=== PATIENT | female | born 1935 | race Caucasian/White ===

== ENCOUNTER → 2017-02-25 | Outpatient (CLI) | payer MEDICARE, OTHER ==
--- NOTE | 2017-02-27 11:10 | MM ---
Reason for exam: screening (asymptomatic). Last mammogram was performed 1 year ago. History: Patient is postmenopausal. Family history of breast cancer in sister at age 66, breast cancer in 2 paternal aunts, breast cancer in maternal cousin, and breast cancer in mother at age 85. Physical Findings: A clinical breast exam by your physician is recommended on an annual basis and results should be correlated with mammographic findings. MG 3D Screening Mammo W/Cad Bilateral CC and MLO view(s) were taken. Prior study comparison: February 20, 2016, bilateral MG 3d screening mammo w/cad. The breast tissue is heterogeneously dense. This may lower the sensitivity of mammography. No significant changes when compared with prior studies. ASSESSMENT: Benign, BI-RAD 2 RECOMMENDATION: Routine screening mammogram of both breasts in 1 year.
== END | disposition home or self-care (01) ==
LOC: RADMAMWWP 09:23
PROVIDERS: ATTEND Family Medicine
DX: Z12.31 Encounter for screening mammogram for malignant neoplasm of breast (principal)
CPT/HCPCS: 77063; G0202

== ENCOUNTER → 2018-02-26 | Outpatient (CLI) | payer MEDICARE, OTHER ==
--- NOTE | 2018-03-02 10:35 | MM ---
Reason for exam: screening (asymptomatic). Last mammogram was performed 1 year ago. History: Patient is postmenopausal. Family history of breast cancer in sister at age 66, breast cancer in 2 paternal aunts, breast cancer in maternal cousin, and breast cancer in mother at age 85. Physical Findings: A clinical breast exam by your physician is recommended on an annual basis and results should be correlated with mammographic findings. MG 3D Screening Mammo W/Cad Bilateral CC and MLO view(s) were taken. Prior study comparison: February 25, 2017, bilateral MG 3d screening mammo w/cad. February 20, 2016, bilateral MG 3d screening mammo w/cad. There are scattered fibroglandular densities. Benign appearing bilateral calcifications. No suspicious abnormality. No significant changes when compared with prior studies. ASSESSMENT: Benign, BI-RAD 2 RECOMMENDATION: Routine screening mammogram of both breasts in 1 year.
== END | disposition home or self-care (01) ==
LOC: RADMAMWWP 10:06
PROVIDERS: ATTEND Family Medicine
DX: Z12.31 Encounter for screening mammogram for malignant neoplasm of breast (principal)
CPT/HCPCS: 77063; 77067

== ENCOUNTER 2018-03-14 17:34 | Emergency (ER) | payer MEDICARE, OTHER ==
[2018-03-14 17:47] VITALS: BP 138/70; PULSE 80; RESP 18; TEMP 98.1
[2018-03-14] MEDS ORDERED: LIDOCAINE 1% INJ 10MG/ML (20 ML MDV) SQ STA (18:05)
--- NOTE | 2018-03-14 18:07 | ED ---
General Adult HPI - General Chief complaint: Fall Stated complaint: FALL, FACIAL AND HAND ABRASIONS Time Seen by Provider: 03/14/18 17:49 Source: patient, RN notes reviewed Mode of arrival: ambulatory Limitations: no limitations - History of Present Illness Initial comments: Patient 82-year-old female presenting to the emergency room today with a chief complaint of a fall that occurred approximate 6 hours ago. Patient was met that she was walking in her driveway when she got tripped up fell forward landing on her right knee, and her hands bilaterally. She also admits that she hit the left side of her head and cheek area. Does not that causes laceration. She states tetanus is up-to-date. She states there is a loss conscious. Denies any headache. Patient does note some pain locally around the left cheek and above the left eye where there is a laceration. Patient does admit to some abrasions to her right knee and over the left pinky area. Patient denies any other complaints or symptoms. Patient denies any recent fever, chills, shortness of breath, chest pain, back pain, abdominal pain, nausea or vomiting, headaches or visual changes, or any other complaints. - Related Data Allergies Allergy/AdvReac Type Severity Reaction Status Date / Time No Known Allergies Allergy Verified 03/14/18 17:42 Review of Systems ROS Statement: Those systems with pertinent positive or pertinent negative responses have been documented in the HPI. ROS Other: All systems not noted in ROS Statement are negative. Past Medical History Past Medical History: Hypertension, Thyroid Disorder History of Any Multi-Drug Resistant Organisms: None Reported, MRSA Date of last positivie culture/infection: 2013 Past Surgical History: Hysterectomy Additional Past Surgical History / Comment(s): bowel resection Past Psychological History: No Psychological Hx Reported Smoking Status: Never smoker Past Alcohol Use History: None Reported Past Drug Use History: None Reported General Exam - General Exam Comments Initial Comments: General: The patient is awake and alert, in no distress, and does not appear acutely ill. Eye: Pupils are equal, round and reactive to light, extra-ocular movements are intact. No nystagmus. There is normal conjunctiva bilaterally. No signs of icterus. Ears, nose, mouth and throat: There are moist mucous membranes and no oral lesions. Tender over the superior and inferior orbital bones on the left. Neck: The neck is supple, there is no tenderness or JVD. Cardiovascular: There is a regular rate and rhythm. No murmur, rub or gallop is appreciated. Respiratory: Lungs are clear to auscultation, respirations are non-labored, breath sounds are equal. No wheezes, stridor, rales, or rhonchi. Musculoskeletal: Normal ROM, no tenderness. No cervical spine, thoracic or lumbar spine tenderness. Strength 5/5. Sensation intact. Pulses equal bilaterally 2+. Neurological: A&O x 3. CN II-XII intact, There are no obvious motor or sensory deficits. Coordination appears grossly intact. Speech is normal. Skin: 1.5 cm laceration above the left eyebrow with no active bleeding. Patient does have superficial abrasion to the left pinky area and over the right knee. Psychiatric: Cooperative, appropriate mood & affect, normal judgment. Limitations: no limitations Course Vital Signs 03/14/18 17:42 Temperature 98.1 F Pulse Rate 80 Respiratory 18 Rate Blood Pressure 138/70 O2 Sat by Pulse 96 Oximetry Procedures - Procedures Initial comment: 1.5 cm linear laceration to the left eyebrow.The skin was anesthetized with 1% lidocaine. The laceration was then cleansed with and irrigated with normal saline. The wound was inspected, and there was no evidence of injury to deep structures. No foreign body was noted in the wound. A total of 5 skin sutures were placed utilizing 5-0 nylon. Medical Decision Making - Medical Decision Making Patient's CT of the head and facial bones are negative for any acute abnormality. Results were discussed with the patient. Patient's laceration was closed in emergency room. Abrasions were cleaned by nursing staff. Patient will be discharged home advised to return in 5 days to have sutures removed. Advised to return for new concerns. Disposition Clinical Impression: Fall, Facial laceration, Abrasion, Facial contusion Disposition: HOME SELF-CARE Condition: Good Instructions: Laceration (ED) Additional Instructions: Please return to the emergency room in 5 days to have sutures removed. Please watch for any signs of infection which may include increased pain, swelling, redness, fever or chills. Please return to emergency room for any signs of infection do occur. Please use clean soap and water over the area to prevent scabbing over your stitches. Please leave wound covered for the first 24- hours and then leave wound open to air. Please return to the emergency room for any other concerns. Is patient prescribed a controlled substance at d/c from ED?: No Referrals: Janna Reyes DO [Primary Care Provider] - 1-2 days Time of Disposition: 18:32
--- NOTE | 2018-03-14 18:25 | CT ---
EXAMINATION TYPE: CT brain wo con DATE OF EXAM: 03/14/2018 COMPARISON: 04/02/2013 HISTORY: Fell, hitting left cheek and left brow CT DLP: 981.30 mGycm Automated exposure control for dose reduction was used. FINDINGS: There is mild cerebral cortical atrophy. There is no mass effect nor midline shift. There is no sign of intracranial hemorrhage. The calvarium is intact. There is some hypodensity in the periventricular white matter. IMPRESSION: CEREBRAL ATROPHY. NO ACUTE INTRACRANIAL ABNORMALITY. NO SIGNIFICANT CHANGE COMPARED TO OLD EXAM.
--- NOTE | 2018-03-14 18:27 | CT ---
EXAMINATION TYPE: CT facial bones wo con DATE OF EXAM: 03/14/2018 COMPARISON: NONE HISTORY: Fell, hitting left cheek and left brow CT DLP: 440.70 mGycm Automated exposure control for dose reduction was used. TECHNIQUE: CT scan of the sinuses is performed without contrast, axial images are obtained, coronal r eformatted images are also reviewed. FINDINGS: The orbital margins are intact. There is no evidence of retro-orbital mass. There is no shannon dence of a blowout fracture. There is normal aeration of the paranasal sinuses. Zygomatic arches appe ar normal. Maxilla is intact. IMPRESSION: Negative CT scan of the facial bones. No fracture seen.
== END 2018-03-14 18:40 | disposition home or self-care (01) ==
LOC: EC 17:34
DX: S01.112A Laceration without foreign body of left eyelid and periocular area, initial encounter (principal); S60.417A Abrasion of left little finger, initial encounter; S80.211A Abrasion, right knee, initial encounter; Z86.14 Personal history of Methicillin resistant Staphylococcus aureus infection; W01.10XA Fall on same level from slipping, tripping and stumbling with subsequent striking against unspecified object, initial encounter; Y93.01 Activity, walking, marching and hiking
CPT/HCPCS: 99283; 12011; 70486; 70450; J2001

== ENCOUNTER → 2018-07-02 | Outpatient (CLI) | payer MEDICARE, OTHER ==
--- NOTE | 2018-07-02 16:27 | BD ---
EXAMINATION TYPE: Axial Bone Density DATE OF EXAM: 07/02/2018 COMPARISON: NONE CLINICAL HISTORY: Height: 5FT 2 1/2 IN Weight: 139 FRAX RISK QUESTIONS: RISK FACTORS HISTORY OF: Active: YES Postmenopausal woman: TOTAL HYST AGE 53 Lost more than 2 inches in height since high school: YES MEDICATIONS: Thyroid Medications: YES Which medication: L THYROXINE How Long: SINCE 1987 Additional Medications: L THYROXINE, ADVAIR, TOPROL,DIOVAN HCT, ASPIRIN, B12, D3, CALCIUM, SLO-MAG, Z YRTEC, REFRESH EYE DROPS, Additional History: EXAM MEASUREMENTS: Bone mineral densitometry was performed using the [employer] System. Bone mineral density as measured about the Lumbar spine is: ----- L1-L4(G/cm2): 1.639 T Score Values are as follows: ----- L2: 3.8 ----- L3: 4.1 ----- L4: 3.1 ----- L1-L4: 3.8 Bone mineral density has: INCREASED 3.2 % since study of: 2014 Bone mineral density about the R hip (g/cm2): 1.033 Bone mineral density about the L hip (g/cm2): 0.945 T Score values are as follows: -----R Neck: 0.0 -----L Neck: -0.7 -----R Total: 0.0 -----L Total: 0.2 Bone mineral density has: DECREASED -1.0 % since study of: 2014 IMPRESSION: Normal (Values between +1 and -1 indicate normal bone mass). Consider repeating this study in 5 year s or sooner if there is some new clinical indication. NOTE: T-SCORE=SD OF THE YOUNG ADULT MEAN.
== END ==
LOC: RADBDWWP 10:16
PROVIDERS: ATTEND Family Medicine
DX: Z13.820 Encounter for screening for osteoporosis (principal)
CPT/HCPCS: 77080

== ENCOUNTER → 2018-10-12 | Outpatient (CLI) | payer MEDICARE, OTHER ==
--- NOTE | 2018-10-13 09:17 | US ---
EXAMINATION TYPE: US kidneys/renal and bladder DATE OF EXAM: 10/12/2018 COMPARISON: US from 2012. CLINICAL HISTORY: R31.9 Hematuria. frequent UTI's EXAM MEASUREMENTS: Right Kidney: 11.1 x 4.2 x 4.4 cm Left Kidney: 10.2 x 6.0 x 5.2 cm Post Void Residual Volume: 8.0 mL Right Kidney: cyst measures 1.3 x 1.5 x 1.1 cm, small amount of fluid renal pelvis seen post void. Left Kidney: No hydronephrosis or masses seen Bladder: wnl Bilateral Jets seen: Yes Normal Post Void Residual: Yes There is no evidence for hydronephrosis at this point in time. No nephrolithiasis is seen. No mayito s are identified. The urinary bladder is anechoic. Bilateral ureteral jets are seen. There is simple appearing 1.3 cm cyst upper pole level right kidney. Prominence of renal pelvis noted after voiding without calyceal dilatation. Consider vesicoureteric reflux during voiding. This can b e further investigated with nuclear medicine study if desired. IMPRESSION: No hydronephrosis is noted bilaterally.
== END ==
LOC: RADUSWWP 15:34
PROVIDERS: ATTEND Urology
DX: N39.0 Urinary tract infection, site not specified (principal)
CPT/HCPCS: 76770

== ENCOUNTER → 2019-03-03 | Outpatient (CLI) | payer MEDICARE, OTHER ==
--- NOTE | 2019-03-05 14:12 | MM ---
Reason for exam: screening (asymptomatic). Last mammogram was performed 1 year ago. History: Patient is postmenopausal. Family history of breast cancer in sister at age 66, breast cancer in 2 paternal aunts, breast cancer in maternal cousin, and breast cancer in mother at age 85. Physical Findings: A clinical breast exam by your physician is recommended on an annual basis and results should be correlated with mammographic findings. MG 3D Screening Mammo W/Cad Bilateral CC and MLO view(s) were taken. Prior study comparison: February 26, 2018, bilateral MG 3d screening mammo w/cad. February 25, 2017, bilateral MG 3d screening mammo w/cad. There are scattered fibroglandular densities. No significant changes when compared with prior studies. ASSESSMENT: Benign, BI-RAD 2 RECOMMENDATION: Routine screening mammogram of both breasts in 1 year.
== END | disposition home or self-care (01) ==
LOC: RADMAMWWP 14:44
PROVIDERS: ATTEND Family Medicine
DX: Z12.31 Encounter for screening mammogram for malignant neoplasm of breast (principal)
CPT/HCPCS: 77063; 77067

== ENCOUNTER → 2020-02-29 | Outpatient (CLI) | payer MEDICARE, OTHER ==
--- NOTE | 2020-02-29 09:32 | MR ---
EXAMINATION TYPE: MR brain wo con DATE OF EXAM: 02/29/2020 COMPARISON: Correlation CT 03/14/2018 HISTORY: 84-year-old female Headache TECHNIQUE: Multiplanar, multisequence images of the brain and brainstem were acquired without IV con trast. Diffusion weighted imaging is performed. FINDINGS: No evidence for acute infarction, hemorrhage, mass, mass effect, midline shift, herniation, effacemen t of basal cisterns, or extra-axial fluid collection. [id number] generalized supratentorial volume loss. T2/FLAIR weighted sequences show moderate scattered bright white matter change particularly in the de ep white matter regions of both cerebral hemispheres and also within the bilateral basal ganglia. A s mall focus of scoliosis within the right occipital lobe measures 1 cm. Major intracranial flow voids are intact. Midline structures demonstrate normal morphology. The craniocervical junction is normal. Mild mucosal thickening throughout the ethmoid air cells. Globes are intact. IMPRESSION: 1. No acute intracranial abnormality seen. 2. Mild to moderate generalized atrophy. Moderate scattered burden of right white matter change which may relate to chronic small vessel ischemic disease. Given patient's headaches, chronic migraines ar e an additional consideration. 3. A 1 cm focus of gliosis in the right occipital lobe suggest a prior small cortical infarct.
== END | disposition home or self-care (01) ==
LOC: RADMRIMAIN 07:28
PROVIDERS: ATTEND Family Medicine
DX: G31.9 Degenerative disease of nervous system, unspecified (principal); R90.89 Other abnormal findings on diagnostic imaging of central nervous system; G93.89 Other specified disorders of brain
CPT/HCPCS: 70551

== ENCOUNTER 2020-03-21 07:43 | Day surgery (SDC) | payer MEDICARE, OTHER ==
[2020-03-17 11:53] VITALS: BMI 24.9
[~2020-03-21 07:43] MED LIST: ALPRAZolam 0.25 MG TAB PO PRN; ALPRAZolam 0.5 MG TAB PO PRN; ASPIRIN 325 MG TAB PO ONE; NITROGLYCERIN SL TABS 0.4 MG TAB SUBLINGUAL PRN; SODIUM CHLORIDE 0.9% 1,000 ML in EMPTY BAG 1 BAG IV ONE
[2020-03-21 08:14] VITALS: RESP 16; TEMP 97.8
[2020-03-21 08:16] LABS: Basophils # (A) 0.1 k/uL (0-0.2); Basophils % (A) 1 %; Eosinophils # (A) 0.5 k/uL (0-0.7); Eosinophils % (A) 8 %; HCT 42.7 % (34.0-46.0); HGB 13.6 gm/dL (11.4-16.0); Lymphocytes # (A) 1.3 k/uL (1.0-4.8); Lymphocytes % (A) 20 %; MCH 29.9 pg (25.0-35.0); MCHC 31.9 g/dL (31.0-37.0); MCV 93.8 fL (80.0-100.0); Mean Platelet Volume 7.3; Monocytes # (A) 0.4 k/uL (0-1.0); Monocytes % (A) 6 %; Neutrophils # (A) 4.1 k/uL (1.3-7.7); Neutrophils % (A) 62 %; Platelet Count 274 k/uL (150-450); RBC 4.55 m/uL (3.80-5.40); WBC 6.6 k/uL (3.8-10.6)
[2020-03-21 08:34] LABS: African American GFR (CKD) >90 (>60 ml/min/1.73 sqM); Anion Gap 8 mmol/L; Blood Urea Nitrogen 20 mg/dL (7-17); Calcium 9.5 mg/dL (8.4-10.2); Carbon Dioxide 28 mmol/L (22-30); Chloride 100 mmol/L (98-107); Glucose 95 mg/dL (74-99); Non-African American GFR(CKD) 80 (>60 ml/min/1.73 sqM); Potassium 4.2 mmol/L (3.5-5.1); Sodium 136 mmol/L (137-145)
[2020-03-21] MEDS ORDERED: MIDAZOLAM 2 MG/2 ML VIAL IV ONE (09:00)
[2020-03-21] MEDS ORDERED: LIDOCAINE 1% INJ 10MG/ML (20 ML MDV) SQ ONE (09:01)
[2020-03-21] MEDS ORDERED: VERAPAMIL SYRINGE (5 MG/10 ML) INTRAARTER ONE (09:05)
[2020-03-21] MEDS ORDERED: IOPAMIDOL-370 125ML BTL INJ ONE (09:36)
[2020-03-21] MEDS ORDERED: RX INFO: IV CONTRAST WAS GIVEN 1 EACH MISC MISCELLANE PRN (09:53)
[2020-03-21] MEDS ORDERED: SODIUM CHLORIDE 0.9% 1,000 ML IV SCH (10:00)
[2020-03-21 12:02] VITALS: BP 169/72; PULSE 55
--- NOTE | 2020-03-23 09:40 | P.CARDCATH ---
Date of Procedure: 03/21/20 Preoperative Diagnosis: Pre-op pains and positive stress test Postoperative Diagnosis: Moderate disease in the LAD in the midportion and distal portion. Mild to moderate disease in the RCA Procedure(s) Performed: Left heart catheterization without left ventriculography Description of Procedure: HISTORY: This is a 84-year-old female with history of hypertension who is being considered for hip surgery. Patient had a nuclear stress test which suggestive ischemia in the anterior and lateral wall. Patient is advised to have a cardiac catheterization for definitive diagnosis CONSENT:I have discussed the risks, benefits and alternative therapies for the above-mentioned procedure and for both sedation/analgesia as well as necessary blood product administration, if indicated, as they pertain to this patient. The patient has indicated understanding and acceptance of the risks and procedures discussed. PROCEDURE: Patient was brought to the lab in a fasting state. Patient was given some IV sedation. The right wrist is infiltrated with lidocaine and right radial artery was entered using Seldinger technique. A 6-Citizen [place] catheter was left in place and selective coronary arteriography was performed. Patient tolerated the procedure well. WI band was applied for hemostasis. No immediate complications were noted and patient was transferred to [facility] in a stable condition Conscious Sedation: Versed 0mg Fentanyl 12.5 g Duration 21minutes HEMODYNAMICS: The aortic pressure is 140/70. Left ankle end-diastolic pressure is about 8-10. No gradient across the aortic valve SELECTIVE CORONARY ARTERIOGRAPHY: LEFT MAIN: Normal length and patent with mild calcification THE LEFT ANTERIOR DESCENDING CORONARY ARTERY: This is a fair caliber vessel in the proximal portion. Becomes moderate in the mid and distal portion. There is a moderate disease in the midportion of the LAD and also distal portion of the LAD. The more midportion of the LAD shows about 60- 70% lesion. This is heavily calcified THE LEFT CIRCUMFLEX AND IS CORONARY ARTERY: Moderate caliber vessel with mild diffuse plaque THE RIGHT CORONARY ARTERY: This is a good caliber vessel and mild to moderate plaque in the proximal portion. No critical lesions noted LEFT VENTRICULOGRAPHY:. Not performed FINAL IMPRESSION: Borderline to significant lesion involving the mid and distal LAD. However, this area is heavily calcified. Films were reviewed with the on- call cook specialty foreign food, . Advised medical therapy at this time.. If she were to have symptoms, FFR and possible atherectomy and stent placement of the considered PLAN: Maximum medical therapy and risk factor modification PROGNOSIS: Guarded
== END 2020-03-21 14:37 | disposition home or self-care (01) ==
LOC: CATHCVL 07:43
PROVIDERS: ATTEND Internal Medicine Cardiovascular Disease
DX: I25.10 Atherosclerotic heart disease of native coronary artery without angina pectoris (principal); R94.39 Abnormal result of other cardiovascular function study; I35.1 Nonrheumatic aortic (valve) insufficiency; I10 Essential (primary) hypertension; E78.00 Pure hypercholesterolemia, unspecified; E78.2 Mixed hyperlipidemia; R60.0 Localized edema; Z79.890 Hormone replacement therapy; Z79.51 Long term (current) use of inhaled steroids; Z79.82 Long term (current) use of aspirin; Z79.899 Other long term (current) drug therapy; Z79.1 Long term (current) use of non-steroidal anti-inflammatories (NSAID)
CPT/HCPCS: 93458; 80048; 85025; C1769 ×3; C1894; J2250; J2001; J1644; Q9967

== ENCOUNTER → 2020-03-29 | Outpatient (CLI) | payer MEDICARE, OTHER | END | disposition home or self-care (01) | LOC: LABPAT 13:18 | PROVIDERS: ATTEND Orthopaedic Surgery | DX: Z01.812 Encounter for preprocedural laboratory examination (principal) | CPT/HCPCS: 87070 ==

== ENCOUNTER 2020-04-04 09:07 | Inpatient (IN) | payer MEDICARE, OTHER ==
[2020-03-29 09:03] VITALS: BMI 25.4
--- NOTE | 2020-04-03 11:49 | HP ---
HISTORY AND PHYSICAL CHIEF COMPLAINT: Right knee pain. HISTORY OF PRESENT ILLNESS: The patient is an 84-year-old, retired female who presents with progressive right knee pain over the past several years. It has worsened recently. She has pain with weightbearing activities. She has tried previous injections without much relief. She has also been on anti-inflammatories. She has a history of right knee arthroscopy. PAST MEDICAL HISTORY: Significant for COPD, hypertension, and hypothyroidism. PAST SURGICAL HISTORY: Significant for right knee arthroscopy, right rotator cuff repair, partial thyroidectomy, and hysterectomy. CURRENT MEDICATIONS: Advair, Zyrtec, atenolol, levothyroxine, and Celebrex. She has allergies to STATIN MEDICATIONS along with MOBIC, NORVASC, and VIOXX. FAMILY HISTORY: Significant for heart disease and cancer. SOCIAL HISTORY: Negative for current tobacco or alcohol use. 16 POINT REVIEW OF SYSTEMS: Otherwise reviewed and is noncontributory. PHYSICAL EXAMINATION: On examination, the patient is approximately 5 foot 4, 148 pounds of mesomorphic habitus. HEENT exam is nonfocal. NECK: Supple. She has painless passive motion of the right hip. Straight leg raise is negative. Active motion right knee -14 to 95 degrees of flexion. She has a moderate effusion. She is tender about the medial joint line. Collaterals are stable, Desiree is negative, Mikel's is equivocal. She has genu varum alignment. Her distal neurovascular appears intact in the right lower extremity. X-rays to include weightbearing, notch, lateral and Merchant views of the right knee obtained in the office show severe medial and patellofemoral compartment narrowing. IMPRESSION: 1. Right knee severe tricompartmental osteoarthrosis. 2. History of chronic obstructive pulmonary disease. RECOMMENDATIONS: I talked to the patient at length regarding her condition along with treatment options. At this point, she is quite symptomatic and limited because of pain related to her osteoarthrosis despite extensive conservative measures. After thorough discussion, she opts to proceed with surgery. We will plan to proceed with right total knee arthroplasty. Risks and benefits were discussed at length in layman's terms. We will institute DVT prophylaxis postoperatively. MMODL / IJN: [id number] /
[~2020-04-04 09:07] MED LIST changes: +ACETAMINOPHEN TAB 500 MG TAB PO ONE; -ALPRAZolam 0.25 MG TAB PO PRN; -ALPRAZolam 0.5 MG TAB PO PRN; -ASPIRIN 325 MG TAB PO ONE; +DEXAMETHASONE SOD PHOSPHATE 10 MG/ML 1 ML VIAL IV ONE; +HYDROmorphone 0.5 MG/0.5 ML SYRINGE IVP PRN; +LIDOCAINE 1% (10MG/ML) FOR IV START INTRADERMA PRN; +MELOXICAM 7.5 MG TAB PO ONE; +MIDAZOLAM 2 MG/2 ML VIAL IV PRN; -NITROGLYCERIN SL TABS 0.4 MG TAB SUBLINGUAL PRN; +ONDANSETRON 4 MG/2 ML VIAL IVP ONE; +ROPIVACAINE 246.25 MG, EPINEPHrine 0.5 MG, KETOROLAC 30 MG, cloNIDine HCL/PF 80 MCG, WA... MISCELLANE ONE; -SODIUM CHLORIDE 0.9% 1,000 ML in EMPTY BAG 1 BAG IV ONE; +TRANEXAMIC ACID 1,000 MG in SODIUM CHLORIDE 0.9% 100 ML IVPB ONE; +fentaNYL (PF) 50 MCG/ML 2 ML AMP IV PRN
[2020-04-04] MEDS ORDERED: ACETAMINOPHEN TAB 500 MG TAB ONE (09:48)
[2020-04-04] MEDS ORDERED: ONDANSETRON 4 MG/2 ML VIAL ONE (09:49)
[2020-04-04] MEDS: LACTATED RINGERS 1,000 ML IV SCH (10:12)
[2020-04-04] MEDS ORDERED: MIDAZOLAM 2 MG/2 ML VIAL IVP ONE (10:35)
[2020-04-04] MEDS ORDERED: ceFAZolin 3,000 MG in SODIUM CHLORIDE 0.9% IRRIGATIO 3,000 ML IRRIGATION ONE (10:58)
[2020-04-04] MEDS ORDERED: LACTATED RINGERS 1,000 ML IV ONE (12:28)
[2020-04-04] MEDS ORDERED: NALOXONE 0.4 MG/ML 1 ML VIAL IV PRN (12:32)
[2020-04-04] MEDS ORDERED: ACETAMINOPHEN TAB 325 MG TAB PO PRN (12:32)
[2020-04-04] MEDS ORDERED: HYDROmorphone 0.5 MG/0.5 ML SYRINGE IVP PRN (12:32)
[2020-04-04] MEDS ORDERED: MAGNESIUM HYDROXIDE 2,400 MG/10 ML CUP PO PRN (12:32)
[2020-04-04] MEDS ORDERED: ONDANSETRON 4 MG/2 ML VIAL IVP PRN (12:32)
[2020-04-04] MEDS ORDERED: ROPIVACAINE 0.2%-NS ON-Q PUMP 1,090 MG, EMPTY PAIN BALL 1 EACH MISCELLANE PRN (12:57)
--- NOTE | 2020-04-04 12:58 | P.OP ---
Date of Procedure: 04/04/20 Preoperative Diagnosis: Right knee severe tricompartmental osteoarthrosis Postoperative Diagnosis: Same Procedure(s) Performed: Right total knee arthroplastycementedcruciate retaining Implants: Depuy Attune size 6 narrow cemented femoral component, size 5 cemented tibial component, 9 mm articular surface, 32 mm cemented patellar component. This was a cruciate retaining implant. Anesthesia: GETA, regional, local, spinal Surgeon: Dante Shelton Efficiency Miner Blasting #1: Azeem Castillo Estimated Blood Loss (ml): 50 Pathology: other (Bone fragments) Condition: stable Disposition: PACU Indications for Procedure: The patient's an 84-year-old female who presents with progressive right knee pain secondary to osteoarthrosis despite extensive conservative measures. A discussion of the risks and benefits of operative intervention versus continued conservative measures made with patient. She elected to proceed with surgery. Operative risks to include infection, neurovascular injury, development of blood clots, possible component loosening, possible component failure need for subsequent procedures was discussed. She opted to proceed. Informed consent was obtained. Operative Findings: As below Description of Procedure: The patient was brought to the operating room, and after induction of spinal anesthesia the right lower extremity was prepped and draped in a normal fashion. The tourniquet was inflated to 270 mmHg. A longitudinal incision extending 3 finger breaths above the superior pole of the patella extending to the medial aspect the tibial tubercle was then made. The skin and subcutaneous tissues were divided sharply. Electrocautery was used for hemostasis. A medial parapatellar arthrotomy was then performed. The medial soft tissues to include the superficial and deep portions of the medial collateral ligament as well as the medial hamstring tendons were elevated subperiosteally. The proximal medial tibia osteophytes were carefully removed. The patella was everted. The knee was flexed. A portion of the retropatellar fat pad was excised sharply. The anterior cruciate ligament was sacrificed. A starting hole was made in the distal femur 1 cm anterior to the posterior cruciate origin. An intramedullary femoral guide was gently inserted planning on 5 valgus distal cut with 9 mm distal resection. The cutting block was pinned in place. The distal cut was then made. The posterior referencing sizing guide was utilized. 3 of external rotation was built into the system and verified off the trans- epicondylar axis and the posterior condyles. I felt size 6 narrow was most appropriate. The cutting block was pinned in place. The anterior, posterior, and chamfer cuts were then made. The bone fragments were removed. A sulcus cut was then made with the appropriate guide. The trial size 6 femoral component was then placed and was fully seated. There was good anterior to posterior and medial to lateral fit. The distal peg holes were then drilled. The trial component was then removed. Attention was then paid towards preparing the proximal tibia. An extra medullary guide was utilized in line with the tibial shaft and second metatarsal distally. A 7 posterior slope was planned. I planned on 2 mm resection from the medial compartment. The cutting block was pinned in place. The proximal tibial cut was then made. The bone was removed in one fragment. The remnants of the medial and lateral menisci were excised the capsule junction with electrocautery. The tibia sized most appropriately at size 5. The posterior osteophytes off the distal femur were carefully removed with a curved osteotome. The trial tibial and femoral components were placed along with a 9 millimeters articular surface. I was able to obtain full flexion and extension with good stability with varus and valgus stress. After several flexion and extension cycles, the tibial rotation was marked with electrocautery in line with the medial one third of the tibial tubercle. Attention was then paid towards preparing the patella. A patella reamer was utilized taking this down to 14 mm of bone stock. A good flush cut was made. The patella sized most appropriately at 32 millimeters. The peg holes were then drilled. The trial component was placed. The knee was taken through a range of motion. I had good patellofemoral tracking with no hands technique. The trial components were then removed. The tibia was prepared in the appropriate rotation with appropriate drill and keel punch. The flexion and extension gaps were checked and felt to be symmetric. The posterior soft tissues were injected with ropivacaine. The bony surfaces were prepared with pulsatile lavage and dried. The deep tibial component was then cemented in place and was fully seated. Excess cement was removed. The femoral component was cemented in place and was fully seated. Again excess cement was removed. The trial 9 millimeters surface was then inserted in the knee was put in full extension. The patella component was cemented in place. After the cement had sufficiently hardened, the knee was again taken through a range of motion. Again there was good stability in flexion and extension with varus and valgus stress. The trial articular surface was then removed. The final articular surface was placed and was impacted. Care was taken to avoid any soft tissue interposition. Pulsatile lavage was again utilized. The tourniquet was deflated with approximately 60 minutes total tourniquet time. There was minimal drainage therefore a deep drain was not placed. The medial parapatellar arthrotomy was then closed with #2 Ethibond suture. The subcutaneous tissues were reapproximated interrupted 2-0 Vicryl sutures. The skin was reapproximated with 3-0 subarticular strata fix suture. Skin tape and adhesive was applied. A sterile dressing was applied. The patient was then awoken from sedation and transferred to recovery room in good condition. Blood loss was estimated at 50 milliliters. No complications were incurred. Sponge and needle counts were correct at the end the case. Man JUÁREZ assisted during the major components this case to include exposure, bone resection, and implantation.
--- NOTE | 2020-04-04 13:31 | XR ---
EXAMINATION TYPE: XR knee limited RT DATE OF EXAM: 04/04/2020 COMPARISON: None HISTORY: Postop knee replacement TECHNIQUE: 2 view right knee FINDINGS: Femoral and tibial components placed. Postsurgical soft tissue changes are present. No acut e fractures are evident post knee replacement. Vascular calcification is noted. IMPRESSION: 1. Status post right knee replacement. No acute fractures are evident
--- NOTE | 2020-04-04 13:35 | P.ANPRN ---
Procedure Note - Anesthesia - Nerve Block Performed Right Adductor Canal Infusion Time Out Performed: Yes (1032) Date of Procedure: 04/04/20 Procedure Start Time: 10:33 Procedure Stop Time: 10:38 Location of Patient: PreOp Indication: Acute Post-Operative Pain, Requested by Surgeon Specifically requested for management of pain by : Dante Shelton Sedation Type: Sedate with meaningful contact maintained Preparation: Sterile Prep Position: Supine Catheter Depth at Skin (cm): 7 Catheter: Indwelling Needle Types: Pajunk Needle Gauge: 20 Ultrasound used to visualize needle placement: Yes Ultrasound used to observe medication spread: Yes Injectate: 0.5% Ropivacaine (see comment for volume) (15CC) Blood Aspirated: No Pain Paresthesia on Injection Noted: No Resistance on Injection: Normal Image Stored and Saved: Yes Events: Uneventful and Well Tolerated
[2020-04-04] MEDS ORDERED: NITROGLYCERIN SL TABS 0.4 MG TAB SUBLINGUAL PRN (18:01)
[2020-04-04] MEDS: SENNOSIDES-DOCUSATE SODIUM 1 EACH TAB PO SCH (18:15)
--- NOTE | 2020-04-04 21:17 | P.CONS ---
History of Present Illness - Reason for Consult Recommendations regarding antihypertensive medications. - History of Present Illness 84-year-old pleasant female is admitted for right knee arthroplasty success underwent surgery patient is liquidy were denied any pain at this time. Patient on multiple antidepressant medications including telmisartan, atenolol and chlorthalidone. Patient denied any fever chills patient doesn't have a Chamorro catheter. Patient doesn't have a surgical drain. Review of Systems REVIEW OF SYSTEMS: CONSTITUTIONAL: No fever, no malaise, no fatigue. HEENT: No recent visual problems or hearing problems. Denied any sore throat. CARDIOVASCULAR: No chest pain, orthopnea, PND, no palpitations, no syncope. PULMONARY: No shortness of breath, no cough, no hemoptysis. GASTROINTESTINAL: No diarrhea, no nausea, no vomiting, no abdominal pain. NEUROLOGICAL: No headaches, no weakness, no numbness. HEMATOLOGICAL: Denies any bleeding or petechiae. GENITOURINARY: Denies any burning micturition, frequency, or urgency. MUSCULOSKELETAL/RHEUMATOLOGICAL: Denies any joint pain, swelling, or any muscle pain. ENDOCRINE: Denies any polyuria or polydipsia. The rest of the 14-point review of systems is negative. 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, hx diverticulitis History of Any Multi-Drug Resistant Organisms: MRSA Year Discovered:: 2013 MDRO Source:: abdominal wound Past Surgical History: Bowel Resection, Hysterectomy Additional Past Surgical History / Comment(s): thyroidectomy Past Anesthesia/Blood Transfusion Reactions: No Reported Reaction Past Psychological History: No Psychological Hx Reported Smoking Status: Never smoker Past Alcohol Use History: None Reported Past Drug Use History: None Reported - Past Family History Mother Family Medical History: Cancer Additional Family Medical History / Comment(s): breast Sister(s) Family Medical History: Cancer Medications and Allergies Home Medications Medication Instructions Recorded Confirmed Type Atenolol/Chlorthalidone 1 each PO QAM 03/17/20 03/29/20 History [Atenolol-Chlorthalidone 100-25] Calcium Carbonate/Vitamin D3 1 each PO BID 03/17/20 03/29/20 History [Calcium 600-Vit D3 2,500 Sftgl] Carboxymethylcellulose Sodium 15 ml BOTH EYES BID 03/17/20 04/04/20 History [Refresh Tears] Celecoxib [CeleBREX] 400 mg PO W/SUPPER 03/17/20 03/29/20 History Cetirizine HCl [Zyrtec] 10 mg PO DAILY 03/17/20 04/04/20 History Fluticasone/Salmeterol [Advair Hfa 2 puff INHALATION DAILY 03/17/20 03/29/20 History 115-21 Mcg Inhaler] Levothyroxine Sodium [Synthroid] 75 mcg PO DAILY 03/17/20 03/29/20 History Telmisartan 80 mg PO QAM 03/17/20 03/29/20 History Vitc/E/Zinc/Copper/Lutein/Zeax 2 each PO DAILY 03/17/20 03/29/20 History [Icaps Areds2 Tablet] Aspirin 81 mg PO DAILY #100 chewable 03/21/20 03/29/20 Rx Nitroglycerin Sl Tabs [Nitrostat] 0.4 mg SUBLINGUAL Q5M PRN #25 tab 03/21/20 03/29/20 Rx Polyethylene Glycol(Dose Unkno 1 applicate PO DAILY PRN 03/29/20 04/04/20 History Allergies Allergy/AdvReac Type Severity Reaction Status Date / Time meloxicam [From Mobic] AdvReac increased Verified 04/04/20 09:42 b/p rofecoxib [From Vioxx] AdvReac increased Verified 04/04/20 09:42 b/p [id number] Reductase AdvReac muscle pain Verified 04/04/20 09:42 Inhibitor Physical Exam Vitals: Vital Signs Temp Pulse Resp BP Pulse Ox 04/04/20 16:15 149/64 04/04/20 16:00 64 156/70 95 04/04/20 15:45 62 150/71 96 04/04/20 15:30 60 158/76 94 L 04/04/20 15:15 75 154/81 92 L 04/04/20 15:00 78 137/79 93 L 04/04/20 14:45 72 175/75 94 L 04/04/20 14:30 71 155/79 95 04/04/20 14:15 97.4 F L 74 16 172/81 92 L 04/04/20 14:01 74 16 164/73 97 04/04/20 13:45 83 16 171/76 100 04/04/20 13:31 76 16 164/77 100 04/04/20 13:15 78 16 148/72 100 04/04/20 13:01 82 16 157/77 100 04/04/20 12:54 97.0 F L 81 20 159/77 100 04/04/20 09:31 98.0 F 61 18 117/60 95 Intake and Output 04/04/20 04/04/20 04/04/20 06:59 14:59 22:59 Intake Total 1701 Output Total 50 Balance 1651 Intake: IV 1701 Output: Estimated Blood Loss 50 Other: Voiding Method Toilet Weight 67 kg PHYSICAL EXAMINATION: GENERAL: The patient is alert and oriented x3, not in any acute distress. Well developed, well nourished. HEENT: Pupils are round and equally reacting to light. EOMI. No scleral icterus. No conjunctival pallor. Normocephalic, atraumatic. No pharyngeal erythema. No thyromegaly. CARDIOVASCULAR: S1 and S2 present. No murmurs, rubs, or gallops. PULMONARY: Chest is clear to auscultation, no wheezing or crackles. ABDOMEN: Soft, nontender, nondistended, normoactive bowel sounds. No palpable organomegaly. MUSCULOSKELETAL: No joint swelling or deformity. Right knee is wrapped with Kailash bandage EXTREMITIES: No cyanosis, clubbing, or pedal edema. NEUROLOGICAL: Gross neurological examination did not reveal any focal deficits. SKIN: No rashes. Assessment and Plan Plan: -Hypertension: Her telmisartan and atenolol will be resumed to prevent perioperative hypotension or I will hold off on chlorthalidone. -Hypothyroidism continue with levothyroxine -Right knee arthroplasty: Patient is on Lovenox for DVT prophylaxis regarding pain management avoid opiates benzodiazepine is barbiturates and anticholinergic medications patient presently doesn't have any significant pain. -Asthma without any acute exacerbation -Osteoarthritis
[2020-04-04] MEDS: HYDROcodone/APAP 5-325MG 1 EACH TAB PO PRN (23:14)
[2020-04-05] MEDS: LACTATED RINGERS 1,000 ML IV SCH (03:46)
[2020-04-05] MEDS: LEVOTHYROXINE 75 MCG TAB PO SCH (05:26)
--- NOTE | 2020-04-05 07:16 | P.PN ---
Progress Note - Text Progress Note Date: 04/05/20 Patient was seen at bedside at 6:30 AM. Patient is postop day 1 from right t otal knee replacement with adductor canal catheter placed for pain . Ropivacaine 0.2% infusion running at 8 ml per hour. VAS score is 6/10. Patient denies side effects. Lower extremity sensation and motor function is intact. Patient has ambulated. Dressing clean dry and intact over catheter site
[2020-04-05 08:15] LABS: Basophils % (A) 0 %; Eosinophils # (A) 0.1 k/uL (0-0.7); Eosinophils % (A) 1 %; HCT 35.3 % (34.0-46.0); HGB 11.3 gm/dL (11.4-16.0); Lymphocytes # (A) 1.1 k/uL (1.0-4.8); Lymphocytes % (A) 9 %; MCV 93.7 fL (80.0-100.0); Mean Platelet Volume 7.2; Monocytes # (A) 0.6 k/uL (0-1.0); Monocytes % (A) 5 %; Neutrophils # (A) 10.1 k/uL (1.3-7.7); Neutrophils % (A) 84 %; Platelet Count 261 k/uL (150-450); RBC 3.76 m/uL (3.80-5.40); RDW 12.8 % (11.5-15.5); WBC 12.1 k/uL (3.8-10.6)
[2020-04-05] MEDS: ENOXAPARIN 30 MG/0.3 ML SYRINGE SQ SCH ×2 (08:20→20:31)
[2020-04-05] MEDS: LOSARTAN 50 MG TAB PO SCH (08:21)
[2020-04-05] MEDS: HYDROcodone/APAP 5-325MG 1 EACH TAB PO PRN ×2 (08:21→13:28)
[2020-04-05] MEDS: atenoloL 50 MG TAB PO SCH (08:21)
[2020-04-05] MEDS: SYMBICORT 160-4.5 MCG INHALER INHALATION SCH ×2 (09:04→18:57)
--- NOTE | 2020-04-05 12:25 | P.PN ---
Subjective Progress Note Date: 04/05/20 Principal diagnosis: Status post right total knee arthroplasty Patient is a evaluated at bedside, she is resting comfortably.Her pain is controlled. She didn't minimal work with physical therapy today. She would like to be discharged to rehab when possible. She denies chest pain or shortness of breath. Objective - Vital Signs Vital signs: Vital Signs Temp 97.6 F 04/05/20 07:00 Pulse 78 04/05/20 08:19 Resp 18 04/05/20 07:00 BP 120/63 04/05/20 08:19 Pulse Ox 97 04/05/20 07:00 Intake & Output 04/04/20 04/05/20 04/05/20 18:59 06:59 18:59 Intake Total 1701 480 Output Total 50 Balance 1651 480 Weight 67 kg Intake: IV 1701 Oral 480 Output: Estimated Blood Loss 50 Other: Voiding Method Toilet Toilet # Voids 3 - Exam Right lower extremity: Incision is clean, dry, and intact. The exofin fusion tape is in good condition. There is minimal soft tissue swelling and ecchymosis surrounding the medial and lateral aspects of the incision. Calf is soft, no tenderness with palpation. Plantar flexion, dorsiflexion, EHL, FHL are intact. Sensory exam to light touch throughout the extremity is intact, dorsal pedis pulses 2+. - Labs CBC & Chem 7: 04/05/20 07:33 Labs: Abnormal Lab Results - Last 24 Hours (Table) 04/05/20 Range/Units 07:33 WBC 12.1 H (3.8-10.6) k/uL RBC 3.76 L (3.80-5.40) m/uL Hgb 11.3 L (11.4-16.0) gm/dL Neutrophils # 10.1 H (1.3-7.7) k/uL Assessment and Plan Assessment: Status post right total knee arthroplasty Plan: Pain control, continue current medication GI and DVT prophylaxis, continue current medication Continue work with physical therapy We will change her to inpatient status, anticipate discharge to rehab in the next few days Medical recommendations Continue to follow during inpatient stay Time with Patient: Less than 30
--- NOTE | 2020-04-05 14:29 | P.PN ---
Subjective no overnight events patient is clinically doing well.blood pressure remains stable. Patient has some leukocytosis without any evidence of infection Constitutional: Denied any fatigue denied any fever. Cardio vascular: denied any chest pain, palpitations Gastrointestinal denied any nausea vomiting Pulmonary: Denied any shortness of breath cough Neurologic denied any new focal deficits All inpatient medications were reviewed and appropriate changes in these medications as dictated in the interval history and assessment and plan. Objective - Vital Signs Vital signs: Vital Signs Temp 97.6 F 04/05/20 07:00 Pulse 78 04/05/20 08:19 Resp 18 04/05/20 07:00 BP 120/63 04/05/20 08:19 Pulse Ox 97 04/05/20 07:00 Intake & Output 04/04/20 04/05/20 04/05/20 18:59 06:59 18:59 Intake Total 1701 480 Output Total 50 Balance 1651 480 Weight 67 kg Intake: IV 1701 Oral 480 Output: Estimated Blood Loss 50 Other: Voiding Method Toilet Toilet # Voids 3 - Exam PHYSICAL EXAMINATION: GENERAL: The patient is alert and oriented x3, not in any acute distress. Well developed, well nourished. HEENT: Pupils are round and equally reacting to light. EOMI. No scleral icterus. No conjunctival pallor. Normocephalic, atraumatic. No pharyngeal erythema. No thyromegaly. CARDIOVASCULAR: S1 and S2 present. No murmurs, rubs, or gallops. PULMONARY: Chest is clear to auscultation, no wheezing or crackles. ABDOMEN: Soft, nontender, nondistended, normoactive bowel sounds. No palpable organomegaly. MUSCULOSKELETAL: No joint swelling or deformity. Right knee is wrapped with Kailash bandage EXTREMITIES: No cyanosis, clubbing, or pedal edema. NEUROLOGICAL: Gross neurological examination did not reveal any focal deficits. SKIN: No rashes. - Labs CBC & Chem 7: 04/05/20 07:33 Labs: Abnormal Lab Results - Last 24 Hours (Table) 04/05/20 Range/Units 07:33 WBC 12.1 H (3.8-10.6) k/uL RBC 3.76 L (3.80-5.40) m/uL Hgb 11.3 L (11.4-16.0) gm/dL Neutrophils # 10.1 H (1.3-7.7) k/uL Assessment and Plan Plan: -Hypertension: Her telmisartan and atenolol will be resumed to prevent perioperative hypotension or I will hold off on chlorthalidone.patient blood pressures are well controlled -Leukocytosis reactive secondary to surgery no evidence of infection -Hypothyroidism continue with levothyroxine -Right knee arthroplasty: Patient is on Lovenox for DVT prophylaxis regarding pain management avoid opiates benzodiazepine is barbiturates and anticholinergic medications patient presently doesn't have any significant pain. -Asthma without any acute exacerbation -Osteoarthritis
[2020-04-05] MEDS: SENNOSIDES-DOCUSATE SODIUM 1 EACH TAB PO SCH (20:31)
[2020-04-05] MEDS: HYDROcodone/APAP 7.5-325MG 1 EACH TAB PO PRN (20:32)
[2020-04-06] MEDS: HYDROcodone/APAP 7.5-325MG 1 EACH TAB PO PRN ×4 (03:08→22:54)
[2020-04-06] MEDS: ENOXAPARIN 30 MG/0.3 ML SYRINGE SQ SCH ×2 (06:05→22:54)
[2020-04-06] MEDS: LEVOTHYROXINE 75 MCG TAB PO SCH (06:05)
[2020-04-06] MEDS: SYMBICORT 160-4.5 MCG INHALER INHALATION SCH ×2 (08:20→18:38)
[2020-04-06] MEDS: atenoloL 50 MG TAB PO SCH (09:18)
[2020-04-06] MEDS: LOSARTAN 50 MG TAB PO SCH (09:18)
[2020-04-06] MEDS: LACTATED RINGERS 1,000 ML IV SCH (09:22)
[2020-04-06] MEDS: traMADol 50 MG TAB PO PRN ×2 (10:48→17:07)
--- NOTE | 2020-04-06 11:05 | P.PN ---
Subjective Progress Note Date: 04/06/20 Principal diagnosis: Status post right total knee arthroplasty Patient is a evaluated at bedside, she is resting comfortably. Pain is better controlled today. She continues to work physical therapy. Anticipating discharge to rehab on Friday. She denies chest pain or shortness of breath. Objective - Vital Signs Vital signs: Vital Signs Temp 97.5 F L 04/06/20 07:00 Pulse 75 04/06/20 07:00 Resp 16 04/06/20 07:00 BP 137/65 04/06/20 07:00 Pulse Ox 96 04/06/20 07:00 Intake & Output 04/05/20 04/06/20 04/06/20 18:59 06:59 18:59 Other: Voiding Method Toilet # Voids 1 2 - Exam Right lower extremity: Incision is clean, dry, and intact. The exofin fusion tape is in good condition. There is minimal soft tissue swelling and ecchymosis surrounding the medial and lateral aspects of the incision. Calf is soft, no tenderness with palpation. Plantar flexion, dorsiflexion, EHL, FHL are intact. Sensory exam to light touch throughout the extremity is intact, dorsal pedis pulses 2+. - Labs CBC & Chem 7: 04/05/20 07:33 Assessment and Plan Assessment: Status post right total knee arthroplasty Plan: Pain control, continue current medication GI and DVT prophylaxis, continue current medication Continue work with physical therapy Medical recommendations Planning for discharge to rehab on Friday Time with Patient: Less than 30
--- NOTE | 2020-04-06 14:42 | P.PN ---
Subjective Progress Note Date: 04/06/20 Principal diagnosis: 84-year-old pleasant female is admitted for right knee arthroplasty success underwent surgery patient is liquidy were denied any pain at this time. Patient on multiple antidepressant medications including telmisartan, atenolol and chlorthalidone. Patient denied any fever chills patient doesn't have a Chamorro catheter. Patient doesn't have a surgical drain. 04/05/2020 no overnight events patient is clinically doing well.blood pressure remains stable. Patient has some leukocytosis without any evidence of infection Constitutional: Denied any fatigue denied any fever. Cardio vascular: denied any chest pain, palpitations Gastrointestinal denied any nausea vomiting Pulmonary: Denied any shortness of breath cough Neurologic denied any new focal deficits 04/06/2020 Patient is seen and evaluated and follow-up and appears to be in no acute distress. Patient is currently sitting up in the chair with bilateral lower extremities elevated. Patient continues to have some right knee and leg discomfort although is being managed with a pump. Patient is being followed by PT/OT therapy and will be going to rehab for continued PT/OT therapy in the outpatient setting. Patient denies any chest pain, shortness of breath, or palpitations. Patient is afebrile. No reports of nausea or vomiting and patient is tolerating diet. Objective - Vital Signs Vital signs: Vital Signs Temp 97.5 F L 04/06/20 07:00 Pulse 75 04/06/20 07:00 Resp 16 04/06/20 07:00 BP 137/65 04/06/20 07:00 Pulse Ox 96 04/06/20 07:00 Intake & Output 04/05/20 04/06/20 04/06/20 18:59 06:59 18:59 Other: Voiding Method Toilet # Voids 1 2 - Exam GENERAL: The patient is alert and oriented x3, not in any acute distress. Well developed, well nourished. HEENT: Pupils are round and equally reacting to light. EOMI. No scleral icterus. No conjunctival pallor. Normocephalic, atraumatic. No pharyngeal erythema. No thyromegaly. CARDIOVASCULAR: S1 and S2 present. No murmurs, rubs, or gallops. PULMONARY: Chest is clear to auscultation, no wheezing or crackles. ABDOMEN: Soft, nontender, nondistended, normoactive bowel sounds. No palpable organomegaly. MUSCULOSKELETAL: No joint swelling or deformity. Right knee is wrapped with Kailash bandage. Dressing was replaced today and is dry and intact. EXTREMITIES: No cyanosis, clubbing, or pedal edema. NEUROLOGICAL: Gross neurological examination did not reveal any focal deficits. SKIN: No rashes. - Labs CBC & Chem 7: 04/05/20 07:33 Assessment and Plan Assessment: -Hypertension: Her telmisartan and atenolol will be resumed to prevent perioperative hypotension or I will hold off on chlorthalidone.patient blood pressures are well controlled -Leukocytosis reactive secondary to surgery no evidence of infection -Hypothyroidism continue with levothyroxine -Right knee arthroplasty: Patient is on Lovenox for DVT prophylaxis regarding pain management avoid opiates benzodiazepine is barbiturates and anticholinergic medications patient presently doesn't have any significant pain. -Asthma without any acute exacerbation -Osteoarthritis Plan: Continue current medications, management, and symptomatic treatment. Will continue to follow along with orthopedic surgery. Will repeat a.m. labs. Further recommendations to follow. Case management and social work following as patient will be going to rehab upon discharge for continued PT/OT therapy.
[2020-04-06] MEDS: SENNOSIDES-DOCUSATE SODIUM 1 EACH TAB PO SCH (22:54)
[2020-04-07] MEDS: traMADol 50 MG TAB PO PRN ×3 (02:55→15:56)
[2020-04-07 06:17] LABS: Basophils % (A) 0 %; Eosinophils # (A) 0.2 k/uL (0-0.7); Eosinophils % (A) 3 %; HCT 32.8 % (34.0-46.0); HGB 10.6 gm/dL (11.4-16.0); Lymphocytes # (A) 0.9 k/uL (1.0-4.8); Lymphocytes % (A) 12 %; MCH 29.7 pg (25.0-35.0); MCHC 32.2 g/dL (31.0-37.0); MCV 92.2 fL (80.0-100.0); Mean Platelet Volume 7.2; Monocytes # (A) 0.6 k/uL (0-1.0); Monocytes % (A) 8 %; Neutrophils # (A) 5.7 k/uL (1.3-7.7); Neutrophils % (A) 75 %; Platelet Count 261 k/uL (150-450); RBC 3.56 m/uL (3.80-5.40); RDW 12.8 % (11.5-15.5); WBC 7.6 k/uL (3.8-10.6)
[2020-04-07] MEDS: HYDROcodone/APAP 7.5-325MG 1 EACH TAB PO PRN ×3 (06:19→19:46)
[2020-04-07] MEDS: LEVOTHYROXINE 75 MCG TAB PO SCH (06:20)
[2020-04-07] MEDS: ENOXAPARIN 30 MG/0.3 ML SYRINGE SQ SCH ×2 (06:20→19:55)
[2020-04-07] MEDS: LACTATED RINGERS 1,000 ML IV SCH (06:21)
[2020-04-07 06:25] LABS: African American GFR (CKD) >90 (>60 ml/min/1.73 sqM); Anion Gap 5 mmol/L; Blood Urea Nitrogen 15 mg/dL (7-17); Calcium 8.6 mg/dL (8.4-10.2); Carbon Dioxide 30 mmol/L (22-30); Chloride 92 mmol/L (98-107); Glucose 97 mg/dL (74-99); Non-African American GFR(CKD) 85 (>60 ml/min/1.73 sqM); Potassium 3.9 mmol/L (3.5-5.1); Sodium 127 mmol/L (137-145)
[2020-04-07] MEDS: SYMBICORT 160-4.5 MCG INHALER INHALATION SCH ×2 (08:12→19:28)
[2020-04-07] MEDS: atenoloL 50 MG TAB PO SCH (09:27)
[2020-04-07] MEDS: LOSARTAN 50 MG TAB PO SCH (09:27)
--- NOTE | 2020-04-07 10:38 | P.PN ---
Subjective Progress Note Date: 04/07/20 Principal diagnosis: Status post right total knee arthroplasty Patient is a evaluated at bedside, she is resting comfortably. Pain is better controlled today. She continues to work physical therapy. Anticipating discharge to rehab on Friday. She denies chest pain or shortness of breath. Objective - Vital Signs Vital signs: Vital Signs Temp 98.4 F 04/07/20 07:00 Pulse 66 04/07/20 07:00 Resp 20 04/07/20 07:00 BP 156/76 04/07/20 07:00 Pulse Ox 95 04/07/20 07:00 Intake & Output 04/06/20 04/07/20 04/07/20 18:59 06:59 18:59 Intake Total 320 Balance 320 Intake: Oral 320 Other: Voiding Method Toilet # Voids 1 1 - Exam Right lower extremity: Incision is clean, dry, and intact. The exofin fusion tape is in good condition. There is minimal soft tissue swelling and ecchymosis surrounding the medial and lateral aspects of the incision. Calf is soft, no tenderness with palpation. Plantar flexion, dorsiflexion, EHL, FHL are intact. Sensory exam to light touch throughout the extremity is intact, dorsal pedis pulses 2+. - Labs CBC & Chem 7: 04/07/20 05:45 04/07/20 05:45 Labs: Abnormal Lab Results - Last 24 Hours (Table) 04/07/20 04/07/20 Range/Units 05:45 05:45 RBC 3.56 L (3.80-5.40) m/uL Hgb 10.6 L (11.4-16.0) gm/dL Hct 32.8 L (34.0-46.0) % Lymphocytes # 0.9 L (1.0-4.8) k/uL Sodium 127 L (137-145) mmol/L Chloride 92 L (98-107) mmol/L Assessment and Plan Assessment: Status post right total knee arthroplasty Plan: Pain control, continue current medication GI and DVT prophylaxis, continue current medication Continue work with physical therapy Medical recommendations Planning for discharge to rehab on Friday Time with Patient: Less than 30
--- NOTE | 2020-04-07 13:42 | P.PN ---
Subjective Progress Note Date: 04/07/20 Principal diagnosis: 84-year-old pleasant female is admitted for right knee arthroplasty success underwent surgery patient is liquidy were denied any pain at this time. Patient on multiple antidepressant medications including telmisartan, atenolol and chlorthalidone. Patient denied any fever chills patient doesn't have a Chamorro catheter. Patient doesn't have a surgical drain. 04/05/2020 no overnight events patient is clinically doing well.blood pressure remains stable. Patient has some leukocytosis without any evidence of infection Constitutional: Denied any fatigue denied any fever. Cardio vascular: denied any chest pain, palpitations Gastrointestinal denied any nausea vomiting Pulmonary: Denied any shortness of breath cough Neurologic denied any new focal deficits 04/06/2020 Patient is seen and evaluated and follow-up and appears to be in no acute distress. Patient is currently sitting up in the chair with bilateral lower extremities elevated. Patient continues to have some right knee and leg discomfort although is being managed with a pump. Patient is being followed by PT/OT therapy and will be going to rehab for continued PT/OT therapy in the outpatient setting. Patient denies any chest pain, shortness of breath, or palpitations. Patient is afebrile. No reports of nausea or vomiting and patient is tolerating diet. 04/07/2020 Patient is seen in follow-up today with no acute overnight issues. Patient awaiting to go to rehab center at [facility] for continued PT/OT therapy. Patient recently had right knee arthroplasty and is being closely monitored. Blood pressure systolic in the 150s and medications Tenormin and losartan have been resumed. Will continue to monitor closely. Patient denies having any chest pain, shortness of breath, or palpitations. Patient is afebrile. No reports of nausea vomiting and patient is tolerating diet. Patient's white blood count today is 7.6. Hemoglobin is 10.6. Objective - Vital Signs Vital signs: Vital Signs Temp 98.4 F 04/07/20 07:00 Pulse 66 04/07/20 07:00 Resp 20 04/07/20 07:00 BP 156/76 04/07/20 07:00 Pulse Ox 95 04/07/20 07:00 Intake & Output 04/06/20 04/07/20 04/07/20 18:59 06:59 18:59 Intake Total 320 Balance 320 Intake: Oral 320 Other: Voiding Method Toilet # Voids 1 1 1 - Exam GENERAL: The patient is alert and oriented x3, not in any acute distress. Well developed, well nourished. HEENT: Pupils are round and equally reacting to light. EOMI. No scleral icterus. No conjunctival pallor. Normocephalic, atraumatic. No pharyngeal erythema. No thyromegaly. CARDIOVASCULAR: S1 and S2 present. No murmurs, rubs, or gallops. PULMONARY: Chest is clear to auscultation, no wheezing or crackles. ABDOMEN: Soft, nontender, nondistended, normoactive bowel sounds. No palpable organomegaly. MUSCULOSKELETAL: No joint swelling or deformity. Right knee dressing is dry and intact. EXTREMITIES: No cyanosis, clubbing, or pedal edema. NEUROLOGICAL: Gross neurological examination did not reveal any focal deficits. SKIN: No rashes. - Labs CBC & Chem 7: 04/07/20 05:45 04/07/20 05:45 Labs: Abnormal Lab Results - Last 24 Hours (Table) 04/07/20 04/07/20 Range/Units 05:45 05:45 RBC 3.56 L (3.80-5.40) m/uL Hgb 10.6 L (11.4-16.0) gm/dL Hct 32.8 L (34.0-46.0) % Lymphocytes # 0.9 L (1.0-4.8) k/uL Sodium 127 L (137-145) mmol/L Chloride 92 L (98-107) mmol/L Assessment and Plan Assessment: -Hypertension: Blood pressure medications resumed -Leukocytosis reactive secondary to surgery no evidence of infection, improved, current white blood count is 7.6 -Hypothyroidism continue with levothyroxine -Right knee arthroplasty: Patient is on Lovenox for DVT prophylaxis regarding pain management avoid opiates benzodiazepine is barbiturates and anticholinergic medications patient presently doesn't have any significant pain. -Asthma without any acute exacerbation -Osteoarthritis Plan: Continue current medications, management, and symptomatic treatment. Will continue to follow along with orthopedic surgery. Further recommendations to follow. Case management and social work following as patient will be going to rehab upon discharge for continued PT/OT therapy. Patient instructed to increase activity as tolerated. Continue using incentive spirometer at least 10 times every hour while awake. Possible discharge in 24 hours.
[2020-04-07] MEDS: SENNOSIDES-DOCUSATE SODIUM 1 EACH TAB PO SCH (19:55)
[2020-04-08] MEDS: traMADol 50 MG TAB PO PRN ×3 (00:30→11:19)
[2020-04-08] MEDS: LACTATED RINGERS 1,000 ML IV SCH (02:07)
[2020-04-08] MEDS: HYDROcodone/APAP 7.5-325MG 1 EACH TAB PO PRN ×2 (04:42→13:18)
[2020-04-08] MEDS: LEVOTHYROXINE 75 MCG TAB PO SCH (05:41)
[2020-04-08] MEDS: ENOXAPARIN 30 MG/0.3 ML SYRINGE SQ SCH (07:56)
[2020-04-08] MEDS: atenoloL 50 MG TAB PO SCH (07:56)
[2020-04-08] MEDS: LOSARTAN 50 MG TAB PO SCH (07:56)
[2020-04-08 07:57] VITALS: BP 142/70; PULSE 65; RESP 16; TEMP 98.4
[2020-04-08] MEDS: SYMBICORT 160-4.5 MCG INHALER INHALATION SCH (09:08)
--- NOTE | 2020-04-08 10:39 | P.PN ---
Subjective Progress Note Date: 04/08/20 Principal diagnosis: Status post right total knee arthroplasty Patient is a evaluated at bedside, she is resting comfortably. Pain is better controlled today. She continues to work physical therapy. Anticipating discharge to rehab on Friday. She denies chest pain or shortness of breath. Objective - Vital Signs Vital signs: Vital Signs Temp 98.4 F 04/08/20 07:07 Pulse 65 04/08/20 07:07 Resp 16 04/08/20 07:07 BP 142/70 04/08/20 07:07 Pulse Ox 94 L 04/08/20 07:07 Intake & Output 04/07/20 04/08/20 04/08/20 18:59 06:59 18:59 Intake Total 320 480 Balance 320 480 Intake: Oral 320 480 Other: Voiding Method Toilet # Voids 1 3 - Exam Right lower extremity: Incision is clean, dry, and intact. The exofin fusion tape is in good condition. There is minimal soft tissue swelling and ecchymosis surrounding the medial and lateral aspects of the incision. Calf is soft, no tenderness with palpation. Plantar flexion, dorsiflexion, EHL, FHL are intact. Sensory exam to light touch throughout the extremity is intact, dorsal pedis pulses 2+. - Labs CBC & Chem 7: 04/07/20 05:45 04/07/20 05:45 Assessment and Plan Assessment: Status post right total knee arthroplasty Plan: Pain control, discharge on [place] and tramadol GI and DVT prophylaxis, aspirin 81 mg twice a day Continue work with physical therapy Medical recommendations Planning for discharge to rehab on today Time with Patient: Less than 30
--- NOTE | 2020-04-08 10:43 | P.DS ---
Providers Date of admission: 04/04/2020 Expected date of discharge: 04/08/20 Attending physician: Dante Shelton Consults: 04/04/20 12:34 Consult Physician Routine Consulting Provider: Janna Reyes Consult Reason/Comments: Medical Management Do you want consulting provider notified?: Yes Primary care physician: Janna Ryees Hospital Course: Date of admission: 04/04/2020 Date of discharge: 04/08/2020 Admission diagnosis: Status post right total knee arthroplasty Discharge diagnosis: Same Attending physician: Dr. Shelton Surgical procedures: Right total knee arthroplasty Brief history: Patient is a 84-year-old female with a history of progressive primary right knee osteoarthritis. At this point patient has failed conservative treatment measures and has opted to proceed with a elective right total knee arthroplasty. Hospital course: Details of patient's surgery can be found in operative report. Patient tolerated the procedure well and was subsequently transported to orthopedic floor. Patient's orthopeidc and medical care was provided daily. Patient had daily laboratory tests performed for evaluation of overall blood counts. Patient had daily physical therapy to include strengthening range of motion as well as education with walker ambulation. Patient was treated with Lovenox for their postoperative DVT prophylaxis during their inpatient stay. Patient was noted to have a relatively uneventful postoperative course. Patient reported satisfactory pain control with oral pain medications by postoperative day 0. Patient showed satisfactory progress with physical therapy. Patient moved steadily through the program and had no difficulty meeting the goals by postoperative day 4. Given patient's otherwise satisfactory course and having met physical therapy goals, plan is to discharge patient rehab on postoperative day 4. Discharge condition/disposition: Patient will be discharged rehab in stable condition. Discharge medications: Instructions are given on resumption of patient's normal daily medications per primary care recommendation, in addition patient will be prescribed Lucerne 7.5 mg/325 mg, tramadol 50 mg, aspirin 81 mg, Colace 100 mg. Discharge instructions: 1. Wound care and infection precautions, keep incision dry and covered while showering, no lotions, creams, moisturizers. No soaking, tubs, pools, hottubs. Do not scrub over the incision. 2. Weight-bear as tolerated with walker / cane until follow-up. 3. Ice and elevate when necessary. Do not exceed 20 minutes per hour with ice pack. 4. Utilize compression sleeve until seen at first follow up appointment. 5. Visiting nursing care. 6. Home physical therapy including home CPM. 7. Pain meds and anticoagulants per prescription. 8. Pain medication has potential to cause constipation. Increase oral fluid and fiber intake. Contact primary care provider if you have not had a bowel movement within 48 hours after discharge 9. No anti-inflammatory medication until discussed at first post operative visit, this including Motrin, Aleve, Mobic, Diclofenac. 10. Follow up in office at 2 weeks postop with Man Castillo PA-C 11. Follow up with your primary care doctor 7-10 days after discharge. 12. Contact [facility] with any questions, . Procedures: right total knee arthroplasty Patient Condition at Discharge: Good Plan - Discharge Summary Discharge Rx Participant: Yes New Discharge Prescriptions: New Aspirin [Adult Low Dose Aspirin EC] 81 mg PO BID #60 tablet. Docusate [Colace] 100 mg PO DAILY #30 capsule HYDROcodone/APAP 7.5-325MG [Lucerne 7.5] 1 each PO Q6HR PRN #28 tab PRN Reason: Pain traMADol HCl [Ultram] 50 mg PO Q6H PRN #28 tab PRN Reason: Pain Discontinued Aspirin 81 mg PO DAILY #100 chewable No Action Cetirizine HCl [Zyrtec] 10 mg PO DAILY Levothyroxine Sodium [Synthroid] 75 mcg PO DAILY Fluticasone/Salmeterol [Advair Hfa 115-21 Mcg Inhaler] 2 puff INHALATION RT- DAILY Atenolol/Chlorthalidone [Atenolol-Chlorthalidone 100-25] 1 each PO QAM Vitc/E/Zinc/Copper/Lutein/Zeax [Icaps Areds2 Tablet] 1 each PO BID Telmisartan 80 mg PO QAM Celecoxib [CeleBREX] 400 mg PO W/SUPPER Carboxymethylcellulose Sodium [Refresh Tears] 1 drop BOTH EYES BID Calcium Carbonate/Vitamin D3 [Calcium 600-Vit D3 2,500 Sftgl] 2 each PO BID Nitroglycerin Sl Tabs [Nitrostat] 0.4 mg SUBLINGUAL Q5M PRN #25 tab PRN Reason: Chest Pain Psyllium Husk [Metamucil] 0.4 gm PO DAILY PRN PRN Reason: Constipation Discharge Medication List Atenolol/Chlorthalidone [Atenolol-Chlorthalidone 100-25] 1 each PO QAM 03/17/20 [History] Calcium Carbonate/Vitamin D3 [Calcium 600-Vit D3 2,500 Sftgl] 2 each PO BID 03/17/20 [History] Carboxymethylcellulose Sodium [Refresh Tears] 1 drop BOTH EYES BID 03/17/20 [History] Celecoxib [CeleBREX] 400 mg PO W/SUPPER 03/17/20 [History] Cetirizine HCl [Zyrtec] 10 mg PO DAILY 03/17/20 [History] Fluticasone/Salmeterol [Advair Hfa 115-21 Mcg Inhaler] 2 puff INHALATION RT- DAILY 03/17/20 [History] Levothyroxine Sodium [Synthroid] 75 mcg PO DAILY 03/17/20 [History] Telmisartan 80 mg PO QAM 03/17/20 [History] Vitc/E/Zinc/Copper/Lutein/Zeax [Icaps Areds2 Tablet] 1 each PO BID 03/17/20 [History] Nitroglycerin Sl Tabs [Nitrostat] 0.4 mg SUBLINGUAL Q5M PRN #25 tab 03/21/20 [Rx] Psyllium Husk [Metamucil] 0.4 gm PO DAILY PRN 04/05/20 [History] Aspirin [Adult Low Dose Aspirin EC] 81 mg PO BID #60 tablet.dr 04/08/20 [Rx] Docusate [Colace] 100 mg PO DAILY #30 capsule 04/08/20 [Rx] HYDROcodone/APAP 7.5-325MG [Lucerne 7.5] 1 each PO Q6HR PRN #28 tab 04/08/20 [Rx] traMADol HCl [Ultram] 50 mg PO Q6H PRN #28 tab 04/08/20 [Rx] Follow up Appointment(s)/Referral(s): Janna Ryees DO [Primary Care Provider] - 1 Week Azeem Castillo PAC [PHYSICIAN [employer]IST [facility]] - 04/19/20 2:50 pm Activity/Diet/Wound Care/Special Instructions: Orthopedic Discharge Instructions: 1. Wound care and infection precautions, keep incision dry and covered while showering, no lotions, creams, moisturizers. No soaking, pools, hot tubs. Do not scrub over incision. 2. Weight-bear as tolerated with walker / cane until follow-up. 3. Ice and elevate when necessary. Do not exceed 20 minutes per hour with ice pack. 4. Utilize compression sleeve until seen at first follow up appointment. 5. Pain meds and anticoagulants per prescription. 6. Pain medication has potential to cause constipation. Increase oral fluid and fiber intake. Contact primary care provider if you have not had a bowel movement within 48 hours after discharge. 7. No anti-inflammatory medication until discussed at first post operative visit, this including Motrin, Aleve, Mobic, Diclofenac. 8. Follow up in office at 2 weeks postop with Man Castillo PA-C 9. Follow up with your primary care doctor 7-10 days after discharge. 10. Contact [facility] with any questions, .
--- NOTE | 2020-04-08 13:10 | P.PN ---
Subjective 84-year-old pleasant female is admitted for right knee arthroplasty success underwent surgery patient is liquidy were denied any pain at this time. Patient on multiple antidepressant medications including telmisartan, atenolol and chlorthalidone. Patient denied any fever chills patient doesn't have a Chamorro catheter. Patient doesn't have a surgical drain. 04/05/2020 no overnight events patient is clinically doing well.blood pressure remains sta ble. Patient has some leukocytosis without any evidence of infection 04/06/2020 Patient is seen and evaluated and follow-up and appears to be in no acute distress. Patient is currently sitting up in the chair with bilateral lower extremities elevated. Patient continues to have some right knee and leg discomfort although is being managed with a pump. Patient is being followed by PT/OT therapy and will be going to rehab for continued PT/OT therapy in the outpatient setting. Patient denies any chest pain, shortness of breath, or palpitations. Patient is afebrile. No reports of nausea or vomiting and patient is tolerating diet. 04/07/2020 Patient is seen in follow-up today with no acute overnight issues. Patient awaiting to go to rehab center at [facility] for continued PT/OT therapy. Patient recently had right knee arthroplasty and is being closely monitored. Blood pressure systolic in the 150s and medications Tenormin and losartan have been resumed. Will continue to monitor closely. Patient denies having any chest pain, shortness of breath, or palpitations. Patient is afebrile. No reports of nausea vomiting and patient is tolerating diet. Patient's white blo od count today is 7.6. Hemoglobin is 10.6. 04/08/2020 Patient is clinically doing well no overnight events patient will be discharged today. Patient has hyponatremia from labs that were done yesterday. Patient usually takes chlorthalidone at home that is being discontinued patient will be continued on atenolol and the KAILASH inhibitor. Patient will need repeat basic metabolic profile in 3 days to make sure patient's serum sodium is improving patient serum sodium today is 128. I'm expecting this to improve since the diuretic is being discontinued Constitutional: Denied any fatigue denied any fever. Cardio vascular: denied any chest pain, palpitations Gastrointestinal denied any nausea vomiting Pulmonary: Denied any shortness of breath cough Neurologic denied any new focal deficits All inpatient medications were reviewed and appropriate changes in these medications as dictated in the interval history and assessment and plan. Objective - Vital Signs Vital signs: Vital Signs Temp 98.4 F 04/08/20 07:07 Pulse 65 04/08/20 07:07 Resp 16 04/08/20 07:07 BP 142/70 04/08/20 07:07 Pulse Ox 94 L 04/08/20 07:07 Intake & Output 04/07/20 04/08/20 04/08/20 18:59 06:59 18:59 Intake Total 320 480 Balance 320 480 Intake: Oral 320 480 Other: Voiding Method Toilet # Voids 1 3 - Exam PHYSICAL EXAMINATION: GENERAL: The patient is alert and oriented x3, not in any acute distress. Well developed, well nourished. HEENT: Pupils are round and equally reacting to light. EOMI. No scleral icterus. No conjunctival pallor. Normocephalic, atraumatic. No pharyngeal erythema. No thyromegaly. CARDIOVASCULAR: S1 and S2 present. No murmurs, rubs, or gallops. PULMONARY: Chest is clear to auscultation, no wheezing or crackles. ABDOMEN: Soft, nontender, nondistended, normoactive bowel sounds. No palpable organomegaly. MUSCULOSKELETAL: No joint swelling or deformity. Right knee is wrapped with Kailash bandage EXTREMITIES: No cyanosis, clubbing, or pedal edema. NEUROLOGICAL: Gross neurological examination did not reveal any focal deficits. SKIN: No rashes. - Labs CBC & Chem 7: 04/07/20 05:45 04/07/20 05:45 Assessment and Plan Plan: -Hypertension: Blood pressure medications resumed -Leukocytosis reactive secondary to surgery no evidence of infection, improved, current white blood count is 7.6 -Hypothyroidism continue with levothyroxine -Right knee arthroplasty: Patient is on Lovenox for DVT prophylaxis regarding pain management avoid opiates benzodiazepine is barbiturates and anticholinergic medications patient presently doesn't have any significant pain. -Asthma without any acute exacerbation -Osteoarthritis -Hyponatremia: Secondary to chlorthalidone which is being discontinued Plan: Continue current medications, patient is medically stable to be discharged
== END 2020-04-08 13:20 | DRG 470 ==
LOC: OR 09:07 → 4SSUR 14:09 → OR 04-05 03:43 → 4SSUR 04-05 12:25
PROVIDERS: ADMIT Orthopaedic Surgery; ATTEND Orthopaedic Surgery
PROC: 0SRC0J9 Replacement of Right Knee Joint with Synthetic Substitute, Cemented, Open Approach (ICD-10-PCS; principal; 2020-04-04 10:50)
DX: M17.11 Unilateral primary osteoarthritis, right knee (principal); E87.1 Hypo-osmolality and hyponatremia; E78.5 Hyperlipidemia, unspecified; I10 Essential (primary) hypertension; E89.0 Postprocedural hypothyroidism; J44.9 Chronic obstructive pulmonary disease, unspecified; J45.909 Unspecified asthma, uncomplicated; Z79.51 Long term (current) use of inhaled steroids; Z11.59 Encounter for screening for other viral diseases; Z79.82 Long term (current) use of aspirin; Z79.890 Hormone replacement therapy; Z90.710 Acquired absence of both cervix and uterus; Z82.49 Family history of ischemic heart disease and other diseases of the circulatory system; Z88.8 Allergy status to other drugs, medicaments and biological substances; Z86.14 Personal history of Methicillin resistant Staphylococcus aureus infection; Z90.49 Acquired absence of other specified parts of digestive tract; Z80.3 Family history of malignant neoplasm of breast
CPT/HCPCS: 64448; 76942; 80048; 85025; 88300; 94640

== ENCOUNTER → 2020-05-03 | Outpatient (CLI) | payer MEDICARE, OTHER ==
--- NOTE | 2020-05-08 11:24 | MM ---
Reason for exam: screening (asymptomatic). Last mammogram was performed 1 year and 2 months ago. History: Patient is postmenopausal and has history of other cancer at age 25. Family history of breast cancer in sister at age 66, breast cancer in 2 paternal aunts, breast cancer in maternal cousin, and breast cancer in mother at age 85. Physical Findings: A clinical breast exam by your physician is recommended on an annual basis and results should be correlated with mammographic findings. MG 3D Screening Mammo W/Cad Bilateral CC and MLO view(s) were taken. Prior study comparison: March 03, 2019, bilateral MG 3d screening mammo w/cad. February 26, 2018, bilateral MG 3d screening mammo w/cad. There are scattered fibroglandular densities. Benign appearing bilateral calcifications. No significant changes when compared with prior studies. ASSESSMENT: Benign, BI-RAD 2 RECOMMENDATION: Routine screening mammogram of both breasts in 1 year.
== END | disposition home or self-care (01) ==
LOC: RADMAMWWP 10:48
PROVIDERS: ATTEND Family Medicine
DX: Z12.31 Encounter for screening mammogram for malignant neoplasm of breast (principal)
CPT/HCPCS: 77063; 77067

== ENCOUNTER → 2020-10-04 | Outpatient (CLI) | payer MEDICARE, OTHER ==
--- NOTE | 2020-10-04 11:13 | US ---
EXAMINATION TYPE: US abdomen complete DATE OF EXAM: 10/04/2020 COMPARISON: Renal US CLINICAL HISTORY: R10.11 right upper quadrant pain. EXAM MEASUREMENTS: Liver Length: 13.8 cm Gallbladder Wall: 0.2 cm CBD: 0.2 cm Spleen: 9.8 cm Right Kidney: 10.4 x 4.2 x 4.7 cm Left Kidney: 10.3 x 5.1 x 5.6 cm Pancreas: visualized portions wnl Liver: wnl Gallbladder: No stones seen Evidence for sonographic Bravo's sign: Yes CBD: wnl Spleen: wnl Right Kidney: At least two cysts seen, largest measures 1.2 x 1.6 x 1.0 cm. Left Kidney: No hydronephrosis or masses seen Upper IVC: wnl Abd Aorta: wnl The liver is homogenous. The intrahepatic portion of the IVC and proximal abdominal aorta are within normal limits. There is no evidence of cholelithiasis. Common bile duct is unremarkable. The visu alized portions of the pancreas are homogenous. The spleen is unremarkable. Kidneys are symmetric a nd free of hydronephrosis. Few simple appearing thin-walled cysts are scattered throughout the right kidney. IMPRESSION: No acute findings are evident.
== END | disposition home or self-care (01) ==
LOC: RADUSWWP 10:13
PROVIDERS: ATTEND Family Medicine
DX: R10.11 Right upper quadrant pain (principal)
CPT/HCPCS: 76700

== ENCOUNTER → 2020-10-11 | Outpatient (CLI) | payer MEDICARE, OTHER ==
--- NOTE | 2020-10-11 14:21 | CT ---
EXAMINATION TYPE: CT abdomen w con DATE OF EXAM: 10/11/2020 HISTORY: RUQ pain and right lower quadrant pain. CT DLP: 417.6mGycm Automated Exposure Control for Dose Reduction was Utilized. CONTRAST: CT scan of the abdomen is performed with IV Contrast, patient injected with 80 mL of Isovue 300. COMPARISON: Abdominal ultrasound one week ago. FINDINGS: LUNG BASES: [id number] linear scarring and/or atelectasis in the left lung base medially. LIVER/GB: Phrygian cap or gallbladder fold noted on sagittal images. PANCREAS: Mild generalized fat replaced atrophy. SPLEEN: No significant abnormality is seen. ADRENALS: No significant abnormality is seen. KIDNEYS: Low-lying right kidney into the right lower quadrant/upper pelvis. A few small simple appear ing thin-walled cyst posteriorly mid to lower pole of right kidney seen best coronal image 45. Symmet regine corticomedullary uptake and excretion without hydronephrosis seen bilaterally. There is additiona l 1.2 cm thin-walled cyst anteromedially lower pole right kidney. Subcentimeter low dense lesion post eriorly lower pole left kidney series 9 image 28 too small to further characterize. BOWEL: Oral contrast does not reach colonic level making evaluation of distal bowel suboptimal. Cecum slightly wandering into the anterior right upper pelvis axial image 49. [id number] prominence of fecal material throughout the colon with scattered diverticula in the transverse and left colon. N o suspicious small or large bowel dilatation. LYMPH NODES: No greater than 1cm abdominal lymph nodes are appreciated. OSSEOUS STRUCTURES: Underlying scoliosis moderate to severe disc space narrowing and left spurring le ft L1-L2 level. Multilevel facet arthropathy in the lower lumbar spine. OTHER: Moderate calcified plaque of the abdominal aorta extends into branch vessels. There is partial visualization of suspected abnormal soft tissue and hyperdense material in the tere cral space, suspect prominent contrast filled bowel loop. Follow-up is advised. IMPRESSION: 1. No bowel obstruction. Fairly mild to moderate diffuse colonic fecal stasis noted. 2. Cannot exclude abnormal presacral soft tissue lesion or mass. Advise follow-up contrast enhanced C T pelvis to further evaluate.
== END | disposition home or self-care (01) ==
LOC: RADCTMAIN 12:35
PROVIDERS: ATTEND Family Medicine
DX: K56.41 Fecal impaction (principal)
CPT/HCPCS: 74160; 36415; Q9967

== ENCOUNTER → 2020-10-18 | Outpatient (CLI) | payer MEDICARE, OTHER ==
--- NOTE | 2020-10-18 11:27 | CT ---
EXAMINATION TYPE: CT pelvis w con DATE OF EXAM: 10/18/2020 COMPARISON: CT abdomen one week ago. HISTORY: Right lower quadrant and pelvic pain for 2 weeks , abnormal CT CT DLP: 505.5 mGycm Automated exposure control for dose reduction was used. CONTRAST: Performed with oral and with IV Contrast, patient injected with 100 mL of Isovue 300. FINDINGS: Visualized portion of liver, spleen, gallbladder, pancreas, and right kidney are unremarkable. There is low lying right kidney with 1.1 cm thin-walled cyst medially lower pole level and 1.2 cm thin-wall ed cyst posteriorly mid to lower pole level coronal image 29 redemonstrated. Uterus surgically absent . Scattered bilateral pelvic phleboliths. Oral contrast does not reach level of the left colon making evaluation of distal bowel suboptimal. Th ere is no suspicious small or large bowel dilatation. Moderate prominence of fecal material in the le ft and sigmoid colon. Some diverticula in the sigmoid colon. Surgical sutures sigmoid rectal level ax ial image 44 redemonstrated. Area of concern on recent CT in the presacral space corresponds to contr ast-filled bowel loops. No suspicious mass noted. Partial visualization of underlying scoliosis. Moderate narrowing with mild spurring of both hip join ts. Moderate calcified plaque of the aorta extends into branch vessels. IMPRESSION: No suspicious mass with attention to the presacral region at area of concern on recent CT . Persistent moderate distal colonic fecal stasis. No bowel obstruction. No new or acute findings pre sent.
== END | disposition home or self-care (01) ==
LOC: RADCTMAIN 08:47
PROVIDERS: ATTEND Family Medicine
DX: K59.89 Other specified functional intestinal disorders (principal); R10.11 Right upper quadrant pain; R10.31 Right lower quadrant pain
CPT/HCPCS: 82565; 84520; 72193; 36415; Q9967 ×2

== ENCOUNTER → 2021-05-04 | Outpatient (CLI) | payer MEDICARE, OTHER ==
--- NOTE | 2021-05-08 08:26 | MM ---
Reason for exam: screening (asymptomatic). Last mammogram was performed 1 year ago. History: Patient is postmenopausal and has history of other cancer at age 25. Family history of breast cancer in sister at age 66, breast cancer in 2 paternal aunts, breast cancer in maternal cousin, and breast cancer in mother at age 85. Physical Findings: A clinical breast exam by your physician is recommended on an annual basis and results should be correlated with mammographic findings. MG 3D Screening Mammo W/Cad Bilateral CC and MLO view(s) were taken. Prior study comparison: May 03, 2020, bilateral MG 3d screening mammo w/cad. March 03, 2019, bilateral MG 3d screening mammo w/cad. There are scattered fibroglandular densities. No significant changes when compared with prior studies. ASSESSMENT: Benign, BI-RAD 2 RECOMMENDATION: Routine screening mammogram of both breasts in 1 year.
== END | disposition home or self-care (01) ==
LOC: RADMAMWWP 16:07
PROVIDERS: ATTEND Family Medicine
DX: Z12.31 Encounter for screening mammogram for malignant neoplasm of breast (principal); Z85.9 Personal history of malignant neoplasm, unspecified; Z80.3 Family history of malignant neoplasm of breast
CPT/HCPCS: 77063; 77067

== ENCOUNTER → 2021-07-05 | Outpatient (CLI) | payer MEDICARE, OTHER ==
--- NOTE | 2021-07-05 15:27 | BD ---
EXAMINATION TYPE: Axial Bone Density DATE OF EXAM: 07/05/2021 COMPARISON: 2018 CLINICAL HISTORY: Post menopausal screening Height: 63.5 Weight: 142.4 FRAX RISK QUESTIONS: Alcohol (3 or more units per day): no Family History (Parent hip fracture): no Glucocorticoids (More than 3mos): no (Ex: prednisone, prednisolone, methylprednisolone, dexamethasone, and hydrocortisone). History of Fracture in Adulthood: no Secondary Osteoporosis: 1. Type 1 Diabetes: no 2. Hyperthyroidism: no 3. Menopause before 45: no 4. Malnutrition: no 5. Chronic liver disease: no Rheumatoid Arthritis: no Current Tobacco Use: no RISK FACTORS HISTORY OF: History of Wrist Fracture: left When: age 17 Surgery to Spine/Hip(right/left)/Wrist (right/left): no Family History of Osteoporosis: no Active: yes Diet low in dairy products/other sources of calcium: no Postmenopausal woman: yes Lost more than 2 inches in height since high school: no MEDICATIONS: Thyroid Medications: thyroid How Lon years Additional Medications: see pacs Additional History: EXAM MEASUREMENTS: Bone mineral densitometry was performed using the [employer] System. Bone mineral density as measured about the Lumbar spine is: ----- L1-L4(G/cm2): 1.635 T Score Values are as follows: ----- L2: 3.7 ----- L3: 4.2 ----- L4: 3.3 ----- L1-L4: 3.8 Bone mineral density has: increased 0.6 % since study of: 07.02.2018 Bone mineral density about the R hip (g/cm2): 1.054 Bone mineral density about the L hip (g/cm2): 0.940 T Score values are as follows: -----R Neck: 1.0 -----L Neck: -0.7 -----R Total: 0.3 -----L Total: -0.5 Bone mineral density has: increased 3.8 % since study of: 07.02.2018 IMPRESSION: Normal (Values between +1 and -1 indicate normal bone mass). Consider repeating this study in 5 year s or sooner if there is some new clinical indication. NOTE: T-SCORE=SD OF THE YOUNG ADULT MEAN.
== END | disposition home or self-care (01) ==
LOC: RADBDWWP 14:40
PROVIDERS: ATTEND Family Medicine
DX: Z13.820 Encounter for screening for osteoporosis (principal); Z78.0 Asymptomatic menopausal state
CPT/HCPCS: 77080

== ENCOUNTER 2023-04-09 10:35 | Day surgery (SDC) | payer MEDICARE, OTHER ==
[2023-04-09 10:55] VITALS: TEMP 97.2
[2023-04-09] MEDS ORDERED: SODIUM CHLORIDE 0.9% 500 ML 500 ML IV ONE (10:56)
[2023-04-09] MEDS: BENZOCAINE SPRAY 1 CAN TOPICAL ONE ×3 (11:30→11:34)
[2023-04-09] MEDS: fentaNYL (PF) 50 MCG/ML 2 ML AMP IVP ONE ×2 (11:36→11:39)
[2023-04-09] MEDS: MIDAZOLAM 2 MG/2 ML VIAL IVP ONE ×2 (11:36→11:39)
[2023-04-09 11:58] VITALS: RESP 16
[2023-04-09 12:54] VITALS: BP 124/57; PULSE 66
--- NOTE | 2023-04-09 14:22 | P.TEE ---
Description of Procedure(s): Procedure performed: Transesophageal Echocardiogram with color flow doppler, pulsed wave doppler and continuous wave doppler, moderate conscious sedation Moderate conscious sedation: Moderate conscious sedation was supplied with direct supervision of myself using Versed and Fentanyl. Complications: none Indications: Moderate to severe mitral regurgitation PROCEDURE: After the risks, benefits and alternatives of the above mentioned procedure was explained in detail with the patient, informed consent was obtained. Patient was brought to the lab in a fasting state. Patient was given IV Versed and Fentanyl for sedation. The throat was sprayed with Hurricane to anesthetize the throat. A lubricated Omni probe was then introduced into the esophagus and stomach and multiple views were obtained. 2D echo with color flow doppler, pulsed wave doppler and continuous wave doppler was utilized. Agitated saline bubbles were injected to assess for any intra-atrial shunt. The probe was then removed. Patient tolerated the procedure well. Patient was transferred to the post procedure area in stable and satisfactory condition. FINDINGS: 1. The aortic valve is tricuspid and functioning normally with trace aortic insufficiency. 2. The mitral valve appears be normal with moderate mitral regurgitation. PISA radius 0.6 at Nyquist 38 and only systolic blunting of pulmonary veins. 3. Tricuspid valve appears to be normal. 4. The interatrial septum is intact. No evidence of PFO. 5. Left atrial appendage is free of clot. 6. Left ventricular ejection fraction 55%.
== END 2023-04-09 12:55 | disposition home or self-care (01) ==
LOC: CATHCVL 10:35
PROVIDERS: ATTEND Internal Medicine
DX: I34.0 Nonrheumatic mitral (valve) insufficiency (principal); I10 Essential (primary) hypertension; E78.5 Hyperlipidemia, unspecified; Z79.82 Long term (current) use of aspirin; Z79.899 Other long term (current) drug therapy
CPT/HCPCS: 93312; 93320; 93325; J2250; J3010

== ENCOUNTER → 2023-05-27 | Outpatient (CLI) | payer MEDICARE, OTHER ==
--- NOTE | 2023-05-28 10:09 | MM ---
Reason for Exam: Follow-up at short interval from prior study. Last screening mammogram was performed 12 month(s) ago. Patient History: Menarche at age 11. First Full-Term at age 19. Left ovary removed at age 53. Right ovary removed at age 53. Hysterectomy at age 53. Postmenopausal. Maternal cousin had breast cancer, age 55. Maternal cousin had breast cancer, age 80. Paternal aunt had breast cancer, age 80. Paternal aunt had breast cancer, age 70. Sister had breast cancer, age 66. Mother had breast cancer, age 85. Prior Study Comparison: 02/26/2018 Bilateral Screening Mammogram, [facility]. 03/03/2019 Bilateral Screening Mammogram, [facility]. 05/03/2020 Bilateral Screening Mammogram, [facility]. 05/04/2021 Bilateral Screening Mammogram, [facility]. 05/17/2022 Bilateral MG 3D screening mammo w/cad, [facility]. 11/21/2022 Right MG 3D diag mammo w/cad RT, [facility]. Tissue Density: The breast tissue is heterogeneously dense. This may lower the sensitivity of mammography. Findings: Analyzed By CAD. No significant changes when compared with prior studies. Stable benign calcifications. Previous biopsy right breast. Overall Assessment: Benign, BI-RAD 2 Management: Screening Mammogram of both breasts in 1 year. A clinical breast exam by your physician is recommended on an annual basis and results should be correlated with mammographic findings. This exam should not preclude additional follow-up of suspicious palpable abnormalities. Results were given to the patient verbally at the time of exam. Electronically signed and approved by: Paul Givens M.D. Radiologis
== END | disposition home or self-care (01) ==
LOC: RADMAMWWP 10:45
PROVIDERS: ATTEND Family Medicine
DX: R92.8 Other abnormal and inconclusive findings on diagnostic imaging of breast (principal); Z80.3 Family history of malignant neoplasm of breast; Z78.0 Asymptomatic menopausal state
CPT/HCPCS: 77066; G0279; 77062

== ENCOUNTER → 2023-07-03 | Outpatient (CLI) | payer MEDICARE, OTHER ==
--- NOTE | 2023-07-03 18:44 | US ---
EXAMINATION TYPE: US kidneys/renal and bladder DATE OF EXAM: 07/03/2023 COMPARISON: NONE CLINICAL INDICATION: Female, 87 years old with history of N30.20 OTHER CHRONIC CYSTITIS WITHOUT HEMAT URIA; UTI EXAM MEASUREMENTS: Right Kidney: 10.1 x 3.1 x 3.6 cm Left Kidney: 8.7 x 4.9 x 3.5 cm Right Kidney: anechoic area mid pole 1.3 x 1.2 x 1.1 cm. No hydronephrosis. Left Kidney: No hydronephrosis or mass is seen. Bladder: Underdistention limits its evaluation. Bilateral Jets seen: Left only IMPRESSION: A midpole cortical cyst on the right measures 1.3 cm. No hydronephrosis on either side.
== END | disposition home or self-care (01) ==
LOC: RADUSWWP 12:49
PROVIDERS: ATTEND Urology
DX: N30.20 Other chronic cystitis without hematuria (principal); N28.1 Cyst of kidney, acquired
CPT/HCPCS: 76770

== ENCOUNTER 2023-07-07 11:38 | Inpatient (IN) | payer MEDICARE, OTHER ==
--- NOTE | 2023-07-07 12:01 | ED ---
Recheck HPI - General Source: patient, family, RN notes reviewed Mode of arrival: wheelchair Limitations: no limitations - History of Present Illness MD Complaint: other (Low BP) <Trang Dolan - Last Filed: 07/07/23 11:59> - General Source: patient, family, RN notes reviewed Mode of arrival: wheelchair Limitations: no limitations <Farrukh Garcia - Last Filed: 07/07/23 14:38> - General Chief Complaint: Recheck/Abnormal Lab/Rx Stated Complaint: Low BP Time Seen by Provider: 07/07/23 11:59 - History of Present Illness Initial Comments: This is an 87 year old female who presents to the emergency department for low blood pressure. She saw her PCP 3 days ago, and was told that if it remained low, she should come to the emergency department. She does take medication for high blood pressure. Reports feeling generally weak and tired. Denies any chest pain or shortness of breath. (Trang Dolan) Patient is a pleasant 87-year-old female presenting to the emergency department with concerns for low blood pressure. Patient states blood pressure has been low, in the mid 90s for the past week. Patient did stop her evening medication. Patient still takes atenolol in the morning however did not take it today. Patient has felt fatigued and more tired than normal. Patient has had a mild chronic cough for the past month. (Farrukh Garcia) - Related Data Home Medications Medication Instructions Recorded Confirmed Calcium Carbonate/Vitamin D3 2 each PO BID 03/17/20 04/09/23 [Calcium 600-Vit D3 62.5 Mcg (2,500 Iu)] Carboxymethylcellulose Sodium 1 drop BOTH EYES BID 03/17/20 04/09/23 [Refresh Tears] Cetirizine HCl [Zyrtec] 10 mg PO QAM 03/17/20 04/09/23 Fluticasone Propion/Salmeterol 2 puff INHALATION BID 03/17/20 04/09/23 [Advair Hfa 115-21 Mcg Inhaler] Levothyroxine Sodium [Synthroid] 75 mcg PO HS 03/17/20 04/09/23 Telmisartan 80 mg PO HS 03/17/20 04/09/23 Vitc/E/Zinc/Copper/Lutein/Zeax 1 each PO BID 03/17/20 04/09/23 [Icaps Areds2 Tablet] Albuterol Inhaler [Ventolin Hfa 2 puff INHALATION QAM PRN 04/08/23 04/09/23 Inhaler] Atenolol/Chlorthalidone 1 tab PO QAM 04/08/23 04/09/23 [Atenolol-Chlorthalidone 100-25] Atorvastatin [Lipitor] 10 mg PO QAM 04/08/23 04/09/23 polyethylene glycoL 3350 238 gm PO QAM PRN 04/08/23 04/09/23 [Polyethylene Glycol 3350] Previous Rx's Medication Instructions Recorded Nitroglycerin Sl Tabs [Nitrostat] 0.4 mg SUBLINGUAL Q5M PRN #25 tab 03/21/20 Aspirin [Adult Low Dose Aspirin EC] 81 mg PO BID #60 tablet. 04/08/20 Allergies Allergy/AdvReac Type Severity Reaction Status Date / Time meloxicam [From Mobic] AdvReac increased Verified 07/07/23 12:02 b/p rofecoxib [From Vioxx] AdvReac increased Verified 07/07/23 12:02 b/p Vjqcdmo-ULM-JeP Reductase AdvReac muscle pain Verified 07/07/23 12:02 Inhibitor [Ybmvmsw-Emi-Tgz Reductase Inhibitor] Review of Systems ROS Other: All systems not noted in ROS Statement are negative. <Trang Dolan - Last Filed: 07/07/23 11:59> ROS Other: All systems not noted in ROS Statement are negative. Constitutional: Denies: fever Eyes: Denies: eye pain ENT: Denies: ear pain Respiratory: Reports: as per HPI. Denies: dyspnea Cardiovascular: Denies: chest pain Endocrine: Reports: fatigue Gastrointestinal: Denies: abdominal pain Genitourinary: Denies: dysuria Musculoskeletal: Denies: back pain Neurological: Denies: headache <Farrukh Garcia - Last Filed: 07/07/23 14:38> ROS Statement: Those systems with pertinent positive or pertinent negative responses have been documented in the HPI. 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, hx diverticulitis History of Any Multi-Drug Resistant Organisms: MRSA Date of last positivie culture/infection: 2013 MDRO Source:: abdominal wound Past Surgical History: Bowel Resection, Hysterectomy Additional Past Surgical History / Comment(s): thyroidectomy Past Anesthesia/Blood Transfusion Reactions: No Reported Reaction Past Psychological History: No Psychological Hx Reported Past Alcohol Use History: None Reported Past Drug Use History: None Reported - Past Family History Mother Family Medical History: Cancer Additional Family Medical History / Comment(s): breast Sister(s) Family Medical History: Cancer <Trang Dolan - Last Filed: 07/07/23 11:59> General Exam <Trang Dolan - Last Filed: 07/07/23 11:59> Limitations: no limitations General appearance: alert, in no apparent distress Head exam: Present: normocephalic Eye exam: Present: normal appearance Neck exam: Present: normal inspection Respiratory exam: Present: normal lung sounds bilaterally Cardiovascular Exam: Present: regular rate, normal rhythm Expanded Peripheral pulses: 2+: Radial (R), Radial (L), Dorsalis Pedis (R), Dorsalis Pedis (L) GI/Abdominal exam: Present: soft. Absent: tenderness Extremities exam: Present: normal inspection. Absent: pedal edema, calf tenderness Neurological exam: Present: alert, oriented X3, CN II-XII intact. Absent: motor sensory deficit Expanded Motor strength exam: RUE: 5, LUE: 5, RLE: 5, LLE: 5 Eye Response: (4) open spontaneously Motor Response: (6) obeys commands Verbal Response: (5) oriented Psychiatric exam: Present: normal affect, normal mood Skin exam: Present: normal color <Farrukh Garcia - Last Filed: 07/07/23 14:38> - General Exam Comments Initial Comments: Visual Physical Exam Vital signs reviewed General: Well-appearing, nontoxic, no acute distress. Head: Normocephalic, atraumatic Eyes: PERRLA, EOMI ENT: Airway patent Chest: Nonlabored breathing Skin: No visual rash, normal skin tone Neuro: Alert and oriented 3 Musculoskeletal: No gross abnormalities I performed the QuickNote portion of this chart. Signed Trang Dolan PA-C. (Trang Dolan) Course Vital Signs 10/09/23 10/09/23 11:59 13:48 Temperature 98.5 F Pulse Rate 68 57 L Respiratory 18 18 Rate Blood Pressure 96/57 130/68 O2 Sat by Pulse 97 95 Oximetry Medical Decision Making - Lab Data Result diagrams: 07/07/23 12:13 07/07/23 12:13 <Farrukh Garcia - Last Filed: 07/07/23 14:38> - Medical Decision Making EKG interpreted by myself shows sinus rhythm with a rate of 62. AR 195. QRS 88. QT 397. QTC 402. Normal axis. Normal QRS. Nonspecific T waves. Was pt. sent in by a medical professional or institution (, PA, CREATIVE STRATEGIST, urgent care, hospital, or snf...) When possible be specific @ -No Did you speak to anyone other than the patient for history (EMS, parent, family, police, friend...)? What history was obtained from this source @ -Daughter is present and helps provide history including blood pressure monitors onset home. Did you review nursing and triage notes (agree or disagree)? Why? @ -I reviewed and agree with nursing and triage notes Were old charts reviewed (outside hosp., previous admission, EMS record, old EKG, old radiological studies, urgent care reports/EKG's, snf records)? Report findings @ -No old charts were reviewed Differential Diagnosis (chest pain, altered mental status, abdominal pain women, abdominal pain men, vaginal bleeding, weakness, fever, dyspnea, syncope, headache, dizziness, GI bleed, back pain, seizure, CVA, palpatations, mental health, musculoskeletal)? @ -Differential Palpitations Ventricular arrhythmias, atrial arrhythmias, myocardial infarction, anemia, thyrotoxicosis, electrolyte imbalance, hypokalemia, pulmonary embolism, pulmonary disease, drugs, alcohol, anxiety, stress.... This is not meant to be an all-inclusive list. EKG interpreted by me (3pts min.). @ -As above X-rays interpreted by me (1pt min.). @ -Chest x-ray shows hyperinflation. No acute process. CT interpreted by me (1pt min.). @ -None done U/S interpreted by me (1pt. min.). @ -None done What testing was considered but not performed or refused? (CT, X-rays, U/S, labs)? Why? @ -None What meds were considered but not given or refused? Why? @ -None Did you discuss the management of the patient with other professionals (jaxon ayala i.e. , PA, CREATIVE STRATEGIST, lab, RT, psych nurse, social welfare research worker, transmission and coordination engineer, teacher, protocol officer, catalytic case operator)? Give summary @ -[facility] , will admit covering Dr. Marroquin Was smoking cessation discussed for >3mins.? @ -No Was critical care preformed (if so, how long)? @ -No Were there social determinants of health that impacted care today? How? (Homelessness, low income, unemployed, alcoholism, drug addiction, transportation, low edu. Level, literacy, decrease access to med. care, snf, rehab)? @ -No Was there de-escalation of care discussed even if they declined (Discuss DNR or withdrawal of care, Hospice)? DNR status @ -No What co-morbidities impacted this encounter? (DM, HTN, Smoking, COPD, CAD, Can cer, CVA, ARF, Chemo, Hep., AIDS, mental health diagnosis, sleep apnea, morbid obesity)? @ -None Was patient admitted / discharged? Hospital course, mention meds given and route, prescriptions, significant lab abnormalities, going to OR and other pertinent info. @ -Patient presents with borderline hypotension at home. Patient will benefit from holding blood pressure medications. In addition patient is hyponatremic and will be held for fluids and further evaluation Undiagnosed new problem with uncertain prognosis? @ -No Drug Therapy requiring intensive monitoring for toxicity (Heparin, Nitro, Insulin, Cardizem)? @ -No Were any procedures done? @ -No Diagnosis/symptom? @ -Hyponatremia, hypotension. Acute, or Chronic, or Acute on Chronic? @ -Acute, acute Uncomplicated (without systemic symptoms) or Complicated (systemic symptoms)? @ -default Side effects of treatment? @ -No Exacerbation, Progression, or Severe Exacerbation? @ -No Poses a threat to life or bodily function? How? (Chest pain, USA, IA, pneumonia, PE, COPD, DKA, ARF, appy, cholecystitis, CVA, Diverticulitis, Homicidal, Suicidal, threat to staff... and all critical care pts) @ -No (Farrukh Garcia) - Lab Data Lab Results 1007/07/23 07/07/23 Range/Units 12:13 12:13 12:13 WBC 6.0 (3.8-10.6) k/uL RBC 3.73 L (3.80-5.40) m/uL Hgb 11.6 (11.4-16.0) gm/dL Hct 34.5 (34.0-46.0) % MCV 92.3 (80.0-100.0) fL MCH 31.1 (25.0-35.0) pg MCHC 33.7 (31.0-37.0) g/dL RDW 14.4 (11.5-15.5) % Plt Count 243 (150-450) k/uL MPV 7.6 Neutrophils % 63 % Lymphocytes % 26 % Monocytes % 6 % Eosinophils % 4 % Basophils % 0 % Neutrophils # 3.7 (1.3-7.7) k/uL Lymphocytes # 1.5 (1.0-4.8) k/uL Monocytes # 0.3 (0-1.0) k/uL Eosinophils # 0.2 (0-0.7) k/uL Basophils # 0.0 (0-0.2) k/uL PT 10.2 (9.0-12.0) sec INR 1.0 (<1.2) APTT 23.5 (22.0-30.0) sec Sodium 126 L (137-145) mmol/L Potassium 4.0 (3.5-5.1) mmol/L Chloride 92 L (98-107) mmol/L Carbon Dioxide 24 (22-30) mmol/L Anion Gap 10 mmol/L BUN 31 H (7-17) mg/dL Creatinine 0.71 (0.52-1.04) mg/dL Est GFR (CKD-EPI)AfAm 89 (>60 ml/min/1.73 sqM) Est GFR (CKD-EPI)NonAf 77 (>60 ml/min/1.73 sqM) Glucose 117 H (74-99) mg/dL Calcium 9.1 (8.4-10.2) mg/dL Total Bilirubin 0.5 (0.2-1.3) mg/dL AST 23 (14-36) U/L ALT 18 (4-34) U/L Alkaline Phosphatase 59 (38-126) U/L Total Protein 5.8 L (6.3-8.2) g/dL Albumin 3.7 (3.5-5.0) g/dL Urine Color Urine Appearance (Clear) Urine pH (5.0-8.0) Ur Specific [place] (1.001-1.035) Urine Protein (Negative) Urine Glucose (UA) (Negative) Urine Ketones (Negative) Urine Blood (Negative) Urine Nitrite (Negative) Urine Bilirubin (Negative) Urine Urobilinogen (<2.0) mg/dL Ur Leukocyte Esterase (Negative) Urine WBC (0-5) /hpf Ur Squamous Epith Cells (0-4) /hpf Urine Bacteria (None) /hpf Urine Mucus (None) /hpf 07/07/23 Range/Units 13:47 WBC (3.8-10.6) k/uL RBC (3.80-5.40) m/uL Hgb (11.4-16.0) gm/dL Hct (34.0-46.0) % MCV (80.0-100.0) fL MCH (25.0-35.0) pg MCHC (31.0-37.0) g/dL RDW (11.5-15.5) % Plt Count (150-450) k/uL MPV Neutrophils % % Lymphocytes % % Monocytes % % Eosinophils % % Basophils % % Neutrophils # (1.3-7.7) k/uL Lymphocytes # (1.0-4.8) k/uL Monocytes # (0-1.0) k/uL Eosinophils # (0-0.7) k/uL Basophils # (0-0.2) k/uL PT (9.0-12.0) sec INR (<1.2) APTT (22.0-30.0) sec Sodium (137-145) mmol/L Potassium (3.5-5.1) mmol/L Chloride (98-107) mmol/L Carbon Dioxide (22-30) mmol/L Anion Gap mmol/L BUN (7-17) mg/dL Creatinine (0.52-1.04) mg/dL Est GFR (CKD-EPI)AfAm (>60 ml/min/1.73 sqM) Est GFR (CKD-EPI)NonAf (>60 ml/min/1.73 sqM) Glucose (74-99) mg/dL Calcium (8.4-10.2) mg/dL Total Bilirubin (0.2-1.3) mg/dL AST (14-36) U/L ALT (4-34) U/L Alkaline Phosphatase (38-126) U/L Total Protein (6.3-8.2) g/dL Albumin (3.5-5.0) g/dL Urine Color Yellow Urine Appearance Cloudy H (Clear) Urine pH 5.5 (5.0-8.0) Ur Specific [place] 1.018 (1.001-1.035) Urine Protein Negative (Negative) Urine Glucose (UA) Negative (Negative) Urine Ketones Negative (Negative) Urine Blood Negative (Negative) Urine Nitrite Negative (Negative) Urine Bilirubin Negative (Negative) Urine Urobilinogen <2.0 (<2.0) mg/dL Ur Leukocyte Esterase Negative (Negative) Urine WBC 4 (0-5) /hpf Ur Squamous Epith Cells 7 H (0-4) /hpf Urine Bacteria Many H (None) /hpf Urine Mucus Few H (None) /hpf Disposition <Trang Dolan - Last Filed: 07/07/23 11:59> Is patient prescribed a controlled substance at d/c from ED?: No Time of Disposition: 14:36 <Farrukh Garcia - Last Filed: 07/07/23 14:38> Clinical Impression: Hyponatremia Disposition: ADMITTED IP TO THIS HOSP Referrals: Janna Marroquin DO [Primary Care Provider] - 1-2 days
[2023-07-07 12:05] VITALS: TEMP 98.5
[2023-07-07 12:26] LABS: Basophils % (A) 0 %; Eosinophils # (A) 0.2 k/uL (0-0.7); Eosinophils % (A) 4 %; HCT 34.5 % (34.0-46.0); HGB 11.6 gm/dL (11.4-16.0); Lymphocytes # (A) 1.5 k/uL (1.0-4.8); Lymphocytes % (A) 26 %; MCH 31.1 pg (25.0-35.0); MCHC 33.7 g/dL (31.0-37.0); MCV 92.3 fL (80.0-100.0); Mean Platelet Volume 7.6; Monocytes # (A) 0.3 k/uL (0-1.0); Monocytes % (A) 6 %; Neutrophils # (A) 3.7 k/uL (1.3-7.7); Neutrophils % (A) 63 %; Platelet Count 243 k/uL (150-450); RBC 3.73 m/uL (3.80-5.40); RDW 14.4 % (11.5-15.5)
[2023-07-07 12:45] LABS: Partial Thromboplastin Time 23.5 sec (22.0-30.0); Prothrombin Time 10.2 sec (9.0-12.0)
[2023-07-07 12:53] LABS: ALT 18 U/L (4-34); AST 23 U/L (14-36); African American GFR (CKD) 89 (>60 ml/min/1.73 sqM); Albumin 3.7 g/dL (3.5-5.0); Alkaline Phosphatase 59 U/L (38-126); Anion Gap 10 mmol/L; Blood Urea Nitrogen 31 mg/dL (7-17); Calcium 9.1 mg/dL (8.4-10.2); Carbon Dioxide 24 mmol/L (22-30); Chloride 92 mmol/L (98-107); Glucose 117 mg/dL (74-99); Non-African American GFR(CKD) 77 (>60 ml/min/1.73 sqM); Sodium 126 mmol/L (137-145); Total Bilirubin 0.5 mg/dL (0.2-1.3); Total Protein 5.8 g/dL (6.3-8.2)
[2023-07-07] MEDS ORDERED: SODIUM CHLORIDE 0.9% 1,000 ML IV STA (13:58)
--- NOTE | 2023-07-07 14:17 | XR ---
EXAMINATION TYPE: XR chest 2V DATE OF EXAM: 07/07/2023 2:12 PM CLINICAL INDICATION:Female, 87 years old with history of cough, weak; COMPARISON: Chest radiographs from 09/12/2022 TECHNIQUE: XR chest 2V Frontal and lateral views of the chest. FINDINGS: Lungs/Pleura: Prominent interstitial lung markings are seen scattered throughout the lungs with dinora ening of the diaphragm and increased lucency of the lung apices. No evidence of focal consolidation, pneumothorax or pleural effusion. Pulmonary vascularity: Unremarkable. Heart/mediastinum: Cardiomediastinal silhouette is unremarkable. Atherosclerotic calcifications are seen in the aorta. Musculoskeletal: No acute osseous pathology. Other findings: None IMPRESSION: 1. No acute cardiopulmonary disease process. 2. COPD changes.
[2023-07-07 14:20] LABS: Appearance,Urine Cloudy (Clear); Bacteria,Urine Many /hpf; Bilirubin,Urine Negative (Negative); Blood,Urine Negative (Negative); Color,Urine Yellow; Glucose,Urine (UA) Negative (Negative); Ketones,Urine Negative (Negative); Leukocyte Esterase,Urine Negative (Negative); Mucus,Urine Few /hpf; Nitrite,Urine Negative (Negative); PH, Urine 5.5 (5.0-8.0); Protein,Urine Negative (Negative); Specific Gravity,Urine 1.018 (1.001-1.035); Squamous Epithelial Cell,Urine 7 /hpf (0-4); Urobilinogen,Urine <2.0 mg/dL (<2.0); WBC,Urine 4 /hpf (0-5)
[2023-07-07] MEDS ORDERED: NALOXONE 0.4 MG/ML 1 ML VIAL IV PRN (14:39)
[2023-07-07] MEDS ORDERED: SODIUM CHLORIDE 0.9% 1,000 ML IV SCH (14:45)
[2023-07-07 20:27] VITALS: RESP 16
[2023-07-07] MEDS ORDERED: BENZONATATE 100 MG CAP PO PRN (21:21)
[2023-07-07] MEDS ORDERED: NITROGLYCERIN SL TABS 0.4 MG TAB SUBLINGUAL PRN (21:21)
[2023-07-07] MEDS ORDERED: ATORVASTATIN 10 MG TAB PO SCH (21:30)
[2023-07-07] MEDS ORDERED: LEVOTHYROXINE 75 MCG TAB PO SCH (21:30)
--- NOTE | 2023-07-07 21:40 | P.HPIM ---
History of Present Illness H&P Date: 07/07/23 Chief Complaint: Generalized weakness and tiredness. Patient is a 87-year-old female with a past medical history of moderate to severe MR on regular follow-up with cardiology, hypothyroidism, hypertension, hyperlipidemia, asthma and prior history of bowel resection presents to ER with complaints of feeling tired and fatigued. Patient was seen by primary care physician about 3 days ago and found to have blood pressure being low with SBP in 90s. Evening dose of telmisartan has been held at that time and was instructed to go to the ER if the blood pressure continues to be low at home. 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 On admission blood pressure 96/57, heart rate 68. Chest x-ray showed no acute cardiopulmonary process. COPD changes. EKG showed sinus rhythm Laboratory data showed WBC 6.0 hemoglobin 11.6 and platelets 243 Sodium 126 potassium 4.0 chloride 92 bicarb is 24 BUN 31 and creatinine 0.71 and blood sugar 117 Liver enzymes are not elevated. Urinalysis showed cloudy with 7 squamous epithelial cells. Review of Systems Constitutional: Patient denies any fever or chills . No generalized weakness, tiredness and fatigue. No weight loss. Abdomen: Patient denied nausea vomiting and diarrhea and abdominal pain. Cardiovascular: Patient denies any chest pain or short of breath no palpitations. Respiratory: patient denied any cough or sputum production. No shortness of breath Neurologic: Patient denied any numbness or tingling headache. Musculoskeletal: Patient denies any complaints of joint swelling or deformity. Skin: Negative Psychiatric: Negative Endocrine: No heat or cold intolerance. No recent weight gain. Genitourinary: No dysuria or hematuria. 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, hx diverticulitis History of Any Multi-Drug Resistant Organisms: MRSA Date of last positivie culture/infection: 2013 MDRO Source:: abdominal wound Past Surgical History: Bowel Resection, Hysterectomy Additional Past Surgical History / Comment(s): thyroidectomy Past Anesthesia/Blood Transfusion Reactions: No Reported Reaction Past Psychological History: No Psychological Hx Reported Past Alcohol Use History: None Reported Past Drug Use History: None Reported - Past Family History Mother Family Medical History: Cancer Additional Family Medical History / Comment(s): breast Sister(s) Family Medical History: Cancer Medications and Allergies Home Medications Medication Instructions Recorded Confirmed Type RX: Calcium Carbonate/Vitamin D3 1 cap PO BID-W/MEALS 03/17/20 07/07/23 History [Calcium 600-Vit D3 62.5 Mcg (2,500 Iu)] RX: Carboxymethylcellulose Sodium 1 drop BOTH EYES BID 03/17/20 07/07/23 History [Refresh Tears] RX: Fluticasone Propion/Salmeterol 2 puff INHALATION RT-BID 03/17/20 07/07/23 History [Advair Hfa 115-21 Mcg Inhaler] RX: Levothyroxine Sodium 75 mcg PO HS 03/17/20 07/07/23 History [Synthroid] RX: Vitc/E/Zinc/Copper/Lutein/Zeax 1 tab PO BID-W/MEALS 03/17/20 07/07/23 History [Icaps Areds2 Tablet] RX: Nitroglycerin Sl Tabs 0.4 mg SUBLINGUAL Q5M PRN #25 tab 03/21/20 07/07/23 Rx [Nitrostat] Atenolol/Chlorthalidone 1 tab PO DAILY 04/08/23 07/07/23 History [Atenolol-Chlorthalidone 100-25] RX: Albuterol Inhaler [Ventolin 1 puff INHALATION RT-HS 04/08/23 07/07/23 History Hfa Inhaler] RX: Atorvastatin [Lipitor] 10 mg PO HS 04/08/23 07/07/23 History Azelastine HCl [Astelin Nasal 137 mcg NASAL BID 07/07/23 07/07/23 History Moon] Benzonatate [Tessalon Perles] 100 mg PO TID PRN 07/07/23 07/07/23 History Chlorthalidone [Hygroton] 25 mg PO DAILY 07/07/23 07/07/23 History Cranberry Fruit Extract [Cranberry] 500 mg PO DAILY 07/07/23 07/07/23 History Estradiol Cream [Estrace Cream 1 gm VAGINAL DIRECTED 07/07/23 07/07/23 History 0.01%] Fexofenadine HCl [Stacy Allergy] 180 mg PO DAILY 07/07/23 07/07/23 History Omeprazole [PriLOSEC] 40 mg PO DAILY 07/07/23 07/07/23 History RX: Aspirin [Adult Low Dose 81 mg PO DAILY 07/07/23 07/07/23 History Aspirin EC] Allergies Allergy/AdvReac Type Severity Reaction Status Date / Time meloxicam [From Mobic] AdvReac increased Verified 07/07/23 12:02 b/p rofecoxib [From Vioxx] AdvReac increased Verified 07/07/23 12:02 b/p Saazkhg-FQH-ZiG Reductase AdvReac muscle pain Verified 07/07/23 12:02 Inhibitor [Rlotmze-Rmq-Jmh Reductase Inhibitor] Physical Exam Vitals: Vital Signs Temp Pulse Resp BP Pulse Ox 07/07/23 20:00 72 16 97 07/07/23 19:00 62 18 110/56 97 07/07/23 15:00 62 18 120/66 99 07/07/23 13:48 57 L 18 130/68 95 07/07/23 11:59 98.5 F 68 18 96/57 97 Intake and Output 07/07/23 07/07/23 07/07/23 06:59 14:59 22:59 Other: Weight 58.967 kg PHYSICAL EXAMINATION: Patient is lying in the bed comfortably, no acute distress, awake alert and oriented.. HEENT: Normocephalic. Neck is supple. Pupils reactive. Nostrils clear. Oral cavity is moist. Neck reveals no JVD, carotid bruits, or thyromegaly. CHEST EXAMINATION: Trachea is central. Symmetrical expansion. Lung ahumada clear to auscultation and percussion. CARDIAC: Normal S1, S2 with no gallops. No murmurs ABDOMEN: Soft. Bowel sounds normal. No organomegaly. No abdominal bruits. Extremities: reveal no edema. No clubbing or cyanosis Neurologically awake, alert, oriented x3 with well-coordinated movements. No focal deficits noted Skin: No rash or skin lesions. Psychiatric: Cooperative. Nonsuicidal Musculoskeletal: No joint swelling or deformity. Normal range of motion. Results CBC & Chem 7: 07/07/23 12:13 07/07/23 12:13 Labs: Abnormal Lab Results - Last 24 Hours (Table) 07/07/23 07/07/23 07/07/23 Range/Units 12:13 12:13 13:47 RBC 3.73 L (3.80-5.40) m/uL Sodium 126 L (137-145) mmol/L Chloride 92 L (98-107) mmol/L BUN 31 H (7-17) mg/dL Glucose 117 H (74-99) mg/dL Total Protein 5.8 L (6.3-8.2) g/dL Urine Appearance Cloudy H (Clear) Ur Squamous Epith Cells 7 H (0-4) /hpf Urine Bacteria Many H (None) /hpf Urine Mucus Few H (None) /hpf Thrombosis Risk Factor Assmnt - DVT/VTE Prophylaxis DVT/VTE Prophylaxis: Pharmacologic Prophylaxis ordered Assessment and Plan Assessment: Generalized weakness and tiredness likely due to hypotension and dehydration. Hypovolemic hyponatremia Due to thiazide diuretic. Moderate to severe MR Hypertension Hyperlipidemia Asthma not in exacerbation DVT prophylaxis with heparin subcu. Plan: Patient will be continued on IV hydration with normal saline and follow-up repeat sodium level. Chlorthalidone is on hold and continue with atenolol. Cardiology was consulted for further titration blood pressure medications due to history of severe MR. Continue monitoring and follow-up closely. Time with Patient: Greater than 30
[2023-07-08] MEDS ORDERED: CALCIUM CARB-VIT D 500 MG-5 MCG TAB PO SCH (07:30)
[2023-07-08] MEDS ORDERED: SYMBICORT 160-4.5 MCG INHALER INHALATION SCH (08:00)
[2023-07-08 08:42] VITALS: BP 120/59; PULSE 62
[2023-07-08 08:53] LABS: Basophils # (A) 0.03 X 10*3/uL (0.00-0.10); Basophils % (A) 0.5 %; Eosinophils % (A) 5.5 %; HCT 30.3 % (37.2-46.3); HGB 10.3 d/dL (12.0-15.0); Lymphocytes % (A) 31.1 %; MCH 30.1 pg (27.0-32.0); MCV 88.6 FL (80.0-97.0); Monocytes # (A) 0.65 X 10*3/uL (0.20-1.00); Monocytes % (A) 11.9 %; NRBC Per 100 WBC 0 X 10*3/uL (0.00-0.01); Neutrophils # (A) 2.77 X 10*3/uL (1.80-7.70); Neutrophils % (A) 50.6 %; Platelet Count 200 X 10*3/uL (140-440); RBC 3.42 X 10*6/uL (4.10-5.20); RDW 14.2 % (11.5-14.5); WBC 5.47 X 10*3/uL (4.50-10.00)
[2023-07-08 09:00] LABS: ALT 12 U/L (8-44); AST 16 U/L (13-35); Albumin 3.4 d/dL (3.8-4.9); Albumin/Globulin Ratio 2.27 Ratio (1.60-3.17); Alkaline Phosphatase 59 U/L (41-126); BUN/Creat Ratio 37.33 Ratio (12.00-20.00); Blood Urea Nitrogen 22.4 mg/dL (9.0-27.0); Calcium 8.8 mg/dL (8.7-10.3); Chloride 95 mmol/L (96-109); Globulin 1.5 d/dL (1.6-3.3); Glucose 92 mg/dL (70-110); Potassium 3.9 mmol/L (3.5-5.5); Sodium 128 mmol/L (135-145); Total Bilirubin 0.3 mg/dL (0.3-1.2); Total Protein 4.9 d/dL (6.2-8.2)
[2023-07-08] MEDS ORDERED: AZELASTINE 137MCG/SPRAY NASAL SCH (09:00)
[2023-07-08] MEDS ORDERED: PANTOPRAZOLE 40 MG TABLET PO SCH (09:00)
[2023-07-08] MEDS ORDERED: ASPIRIN 81 MG PO SCH (09:00)
[2023-07-08] MEDS ORDERED: CHLORTHALIDONE 25 MG TAB PO SCH (09:00)
[2023-07-08] MEDS ORDERED: atenoloL 50 MG TAB PO SCH (09:00)
--- NOTE | 2023-07-08 10:03 | P.CRDCN ---
History of Present Illness History of present illness: HISTORY OF PRESENT ILLNESS: This is a 87-year-old female with a past medical history significant for hypertension, hyperlipidemia, CAD with moderate to severely calcified LAD, moderate to severe mitral regurgitation, and questionable TIA. Patient follows in the office with Dr. Becerra. We have been asked to see the patient in consultation for management of blood pressure medications. Patient examined at the bedside. Patient states she has been feeling dizzy and lightheaded at home mostly in the mornings. She states that she already stopped taking her Telmis tacos but her symptoms persisted so she came to the emergency room for further evaluation. The patient states when she was checking her blood pressures at home are systolics are running in the low 90s or high 80s. The patient is currently prescribed atenolol-chlorthalidone 100-25mg daily. She also takes an additional dose of chlorthalidone 25 mg daily. Patient was found to be hyponatremic on admission with a sodium of 126 * EKG reveals sinus mechanism with nonspecific ST-T wave changes * Chest xray negative for acute process. COPD changes. * Patient underwent PRABHU in March 2023 revealing moderate mitral regurgitation, trace aortic insufficiency, and ejection fraction of 55% * Cardiac catheterization history: 2019 revealing 60-70% stenosis of the LAD REVIEW OF SYSTEMS: At the time of my exam: CONSTITUTIONAL: Denies fever or chills. HEENT: Denies blurred vision, vision changes, or eye pain. Denies hemoptysis CARDIOVASCULAR: Denies chest pain. Denies orthopnea. Denies PND. Denies palpitations RESPIRATORY: Denies shortness of breath. GASTROINTESTINAL: Denies abdominal pain. Denies nausea or vomiting. HEMATOLOGIC: Denies bleeding disorders. GENITOURINARY: Denies any blood in urine. SKIN: Denies pruitis. Denies rash. PHYSICAL EXAM: VITAL SIGNS: Reviewed. GENERAL: Well-developed in no acute distress. HEENT: Head is normocephalic. Pupils are equal, round. Sclerae anicteric. Mucous membranes of the mouth are moist. Neck supple. No JVD or thyromegaly LUNGS: Respirations even and unlabored. Lungs essentially clear to auscultation bilaterally. HEART: Regular rate and rhythm. S1 and S2 heard. Systolic murmur noted ABDOMEN: Soft. Nondistended. Nontender. EXTREMITIES: Normal range of motion. No clubbing or cyanosis. Peripheral pulses intact. No lower extremity edema NEUROLOGIC: Awake and alert. Oriented x 3. ASSESSMENT: Dizziness and lightheadedness Hypotension Hyponatremia History of coronary artery disease with 60-70% lesion of LAD History of hypertension History of hyperlipidemia Valvular heart disease including moderate mitral regurgitation Questionable TIA PLAN: Continue to hold chlorthalidone Continue with atenolol 100 mg daily Monitor blood pressure No need to repeat echocardiogram as patient had PRABHU performed in March Patient may be discharged home today from a cardiac standpoint and follow up outpatient with Dr. Becerra Nurse practitioner note has been reviewed by physician. Signing provider agrees with the documented findings, assessment, and plan of care. 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, hx diverticulitis History of Any Multi-Drug Resistant Organisms: MRSA Date of last positivie culture/infection: 2013 MDRO Source:: abdominal wound Past Surgical History: Bowel Resection, Hysterectomy Additional Past Surgical History / Comment(s): thyroidectomy Past Anesthesia/Blood Transfusion Reactions: No Reported Reaction Past Psychological History: No Psychological Hx Reported Past Alcohol Use History: None Reported Past Drug Use History: None Reported - Past Family History Mother Family Medical History: Cancer Additional Family Medical History / Comment(s): breast Sister(s) Family Medical History: Cancer Medications and Allergies Home Medications Medication Instructions Recorded Confirmed Type Calcium Carbonate/Vitamin D3 1 cap PO BID-W/MEALS 03/17/20 07/07/23 History [Calcium 600-Vit D3 62.5 Mcg (2,500 Iu)] Carboxymethylcellulose Sodium 1 drop BOTH EYES BID 03/17/20 07/07/23 History [Refresh Tears] Fluticasone Propion/Salmeterol 2 puff INHALATION RT-BID 03/17/20 07/07/23 History [Advair Hfa 115-21 Mcg Inhaler] Levothyroxine Sodium [Synthroid] 75 mcg PO HS 03/17/20 07/07/23 History Vitc/E/Zinc/Copper/Lutein/Zeax 1 tab PO BID-W/MEALS 03/17/20 07/07/23 History [Icaps Areds2 Tablet] Nitroglycerin Sl Tabs [Nitrostat] 0.4 mg SUBLINGUAL Q5M PRN #25 tab 03/21/20 07/07/23 Rx Albuterol Inhaler [Ventolin Hfa 1 puff INHALATION RT-HS 04/08/23 07/07/23 History Inhaler] Atorvastatin [Lipitor] 10 mg PO HS 04/08/23 07/07/23 History Aspirin [Adult Low Dose Aspirin EC] 81 mg PO DAILY 07/07/23 07/07/23 History Azelastine HCl [Astelin Nasal 137 mcg NASAL BID 07/07/23 07/07/23 History Zullinger] Benzonatate [Tessalon Perles] 100 mg PO TID PRN 07/07/23 07/07/23 History Cranberry Fruit Extract [Cranberry] 500 mg PO DAILY 07/07/23 07/07/23 History Estradiol Cream [Estrace Cream 1 gm VAGINAL DIRECTED 07/07/23 07/07/23 History 0.01%] Fexofenadine HCl [Stacy Allergy] 180 mg PO DAILY 07/07/23 07/07/23 History Omeprazole [PriLOSEC] 40 mg PO DAILY 07/07/23 07/07/23 History atenoloL [Tenormin] 100 mg PO DAILY #90 tablet 07/08/23 Rx Allergies Allergy/AdvReac Type Severity Reaction Status Date / Time meloxicam [From Mobic] AdvReac increased Verified 07/07/23 12:02 b/p rofecoxib [From Vioxx] AdvReac increased Verified 07/07/23 12:02 b/p [id number]-BUF-[id number] Reductase AdvReac muscle pain Verified 07/07/23 12:02 Inhibitor [Cmtcfmm-Iqb-Kek Reductase Inhibitor] Physical Exam Vitals: Vital Signs Temp Pulse Pulse Resp BP BP Pulse Ox 07/08/23 08:00 62 16 120/59 07/08/23 00:04 71 16 112/61 97 07/07/23 20:00 72 16 97 07/07/23 19:00 62 18 110/56 97 07/07/23 15:00 62 18 120/66 99 07/07/23 13:48 57 L 18 130/68 95 07/07/23 11:59 98.5 F 68 18 96/57 97 Results 07/08/23 04:00 07/08/23 04:00 Cardiac Enzymes 07/07/23 Range/Units 12:13 AST 23 (14-36) U/L Coagulation 07/07/23 Range/Units 12:13 PT 10.2 (9.0-12.0) sec APTT 23.5 (22.0-30.0) sec CBC 07/07/23 07/08/23 Range/Units 12:13 04:00 WBC 6.0 5.47 (3.8-10.6) k/uL RBC 3.73 L 3.42 L (3.80-5.40) m/uL Hgb 11.6 10.3 L (11.4-16.0) gm/dL Hct 34.5 30.3 L (34.0-46.0) % Plt Count 243 200 (150-450) k/uL Comprehensive Metabolic Panel 07/07/23 Range/Units 12:13 Sodium 126 L (137-145) mmol/L Potassium 4.0 (3.5-5.1) mmol/L Chloride 92 L (98-107) mmol/L Carbon Dioxide 24 (22-30) mmol/L BUN 31 H (7-17) mg/dL Creatinine 0.71 (0.52-1.04) mg/dL Glucose 117 H (74-99) mg/dL Calcium 9.1 (8.4-10.2) mg/dL AST 23 (14-36) U/L ALT 18 (4-34) U/L Alkaline Phosphatase 59 (38-126) U/L Total Protein 5.8 L (6.3-8.2) g/dL Albumin 3.7 (3.5-5.0) g/dL Current Medications Generic Name Dose Route Start Last Admin Trade Name Freq PRN Reason Stop Dose Admin Albuterol Sulfate 2.5 mg 07/08/23 20:00 Albuterol Nebulized 2.5 Mg/3 Ml INHALATION RT-HS [facility] Aspirin 81 mg 07/08/23 09:00 Aspirin 81 Mg PO DAILY [facility] Atenolol 100 mg 07/08/23 09:00 Atenolol 50 Mg Tab PO DAILY [facility] Atorvastatin Calcium 10 mg 07/07/23 21:30 07/07/23 21:36 Atorvastatin 10 Mg Tab PO 10 mg HS [facility] Administration Azelastine HCl 1 spray 07/08/23 09:00 Azelastine 137mcg/[place]ullinger NASAL BID [facility] Benzonatate 100 mg 07/07/23 21:21 Benzonatate 100 Mg Cap PO TID PRN Cough Budesonide/Formoterol Fumarate 2 puff 07/08/23 08:00 07/08/23 07:43 Symbicort 160-4.5 Mcg Inhaler INHALATION 2 puff RT-BID [facility] Administration Calcium Carbonate 1 each 07/08/23 07:30 Calcium Carb-Vit D 500 Mg-5 Mcg Tab PO BID-W/MEALS [facility] Sodium Chloride 1,000 mls @ 75 mls/hr 07/07/23 14:45 07/07/23 15:50 Saline 0.9% IV 75 mls/hr .[id number] [facility] Administration Levothyroxine Sodium 75 mcg 07/07/23 21:30 07/07/23 21:36 Levothyroxine 75 Mcg Tab PO 75 mcg HS [facility] Administration Naloxone HCl 0.2 mg 07/07/23 14:39 Naloxone 0.4 Mg/Ml 1 Ml Vial IV Q2M PRN Opioid Reversal Nitroglycerin 0.4 mg 07/07/23 21:21 Nitroglycerin Sl Tabs 0.4 Mg Tab SUBLINGUAL Q5M PRN Chest Pain Pantoprazole Sodium 40 mg 07/08/23 09:00 Pantoprazole 40 Mg Tablet PO DAILY [facility] 07/08/23 04:00 07/07/23 12:13
[2023-07-08] MEDS ORDERED: ALBUTEROL NEBULIZED 2.5 MG/3 ML INHALATION SCH (20:00)
[2023-07-08] MEDS ORDERED: ATORVASTATIN 20 MG TAB PO SCH (21:00)
--- NOTE | 2023-07-09 21:35 | P.DS ---
Providers Date of admission: 07/07/23 14:39 Expected date of discharge: 07/08/23 Attending physician: Momo Martinez MD Consults: 07/07/23 14:39 Consult Physician Routine Consulting Provider: Jose Eduardo Consult Reason/Comments: Review of hypertensive meds w cardiac hx Do you want consulting provider notified?: Yes Primary care physician: Janna Reyes Hospital Course: Discharge diagnosis Generalized weakness and tiredness likely due to hypotension and dehydration. Hypovolemic hyponatremia Due to thiazide diuretic. Moderate to severe MR Hypertension Hyperlipidemia Asthma not in exacerbation DVT prophylaxis with heparin subcu. Hospital course Patient is a 87-year-old female with a past medical history of moderate to severe MR on regular follow-up with cardiology, hypothyroidism, hypertension, hyperlipidemia, asthma and prior history of bowel resection presents to ER with complaints of feeling tired and fatigued. Patient was seen by primary care physician about 3 days ago and found to have blood pressure being low with SBP in 90s. Evening dose of telmisartan has been held at that time and was instructed to go to the ER if the blood pressure continues to be low at home. 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 On admission blood pressure 96/57, heart rate 68. Chest x-ray showed no acute cardiopulmonary process. COPD changes. EKG showed sinus rhythm Laboratory data showed WBC 6.0 hemoglobin 11.6 and platelets 243 Sodium 126 potassium 4.0 chloride 92 bicarb is 24 BUN 31 and creatinine 0.71 and blood sugar 117 Liver enzymes are not elevated. Urinalysis showed cloudy with 7 squamous epithelial cells. 07/08/2023 Patient is currently resting in the bed. Awake alert and oriented x3. No complaints of dizziness or lightheadedness. Patient states that she feels medina r today. Diuretics on hold. Patient denies any current atenolol 100 mg daily. No chest pain or shortness of breath. Patient is complaining of dry cough which has been present for the past month.. No fever no chills. No sputum production. No nausea vomiting abdominal pain or diarrhea. Laboratory showed sodium level improved to 128 potassium 3.9 chloride 95 bicarb is 24 BUN 22.4 and creatinine 0.6. WBC 5.4 hemoglobin 10.3 and platelets 200. Patient is cleared from cardiology standpoint and is being discharged home and follow-up with primary care physician next 1 to 3 days for repeat blood work-up. PHYSICAL EXAMINATION: Patient is lying in the bed comfortably, no acute distress, awake alert and oriented.. HEENT: Normocephalic. Neck is supple. Pupils reactive. Nostrils clear. Oral cavity is moist. Neck reveals no JVD, carotid bruits, or thyromegaly. CHEST EXAMINATION: Trachea is central. Symmetrical expansion. Lung ahumada clear to auscultation and percussion. CARDIAC: Normal S1, S2 with no gallops. No murmurs ABDOMEN: Soft. Bowel sounds normal. No organomegaly. No abdominal bruits. Extremities: reveal no edema. No clubbing or cyanosis Neurologically awake, alert, oriented x3 with well-coordinated movements. No focal deficits noted Skin: No rash or skin lesions. Psychiatric: Cooperative. Nonsuicidal Musculoskeletal: No joint swelling or deformity. Normal range of motion. Vitals: Vital Signs Temp Pulse Pulse Resp BP BP Pulse Ox 07/08/23 08:00 62 16 120/59 07/08/23 00:04 71 16 112/61 97 07/07/23 20:00 72 16 97 07/07/23 19:00 62 18 110/56 97 07/07/23 15:00 62 18 120/66 99 07/07/23 13:48 57 L 18 130/68 95 07/07/23 11:59 98.5 F 68 18 96/57 97 Patient Condition at Discharge: Stable Plan - Discharge Summary New Discharge Prescriptions: New atenoloL [Tenormin] 100 mg PO DAILY #90 tablet Continue Levothyroxine Sodium [Synthroid] 75 mcg PO HS Fluticasone Propion/Salmeterol [Advair Hfa 115-21 Mcg Inhaler] 2 puff INHALATION RT-BID Vitc/E/Zinc/Copper/Lutein/Zeax [Icaps Areds2 Tablet] 1 tab PO BID-W/MEALS Carboxymethylcellulose Sodium [Refresh Tears] 1 drop BOTH EYES BID Calcium Carbonate/Vitamin D3 [Calcium 600-Vit D3 62.5 Mcg (2,500 Iu)] 1 cap PO BID-W/MEALS Nitroglycerin Sl Tabs [Nitrostat] 0.4 mg SUBLINGUAL Q5M PRN #25 tab PRN Reason: Chest Pain Albuterol Inhaler [Ventolin Hfa Inhaler] 1 puff INHALATION RT-HS Estradiol Cream [Estrace Cream 0.01%] 1 gm VAGINAL DIRECTED Azelastine HCl [Astelin Nasal [place]] 137 mcg NASAL BID Omeprazole [PriLOSEC] 40 mg PO DAILY Fexofenadine HCl [Stacy Allergy] 180 mg PO DAILY Atorvastatin [Lipitor] 10 mg PO HS Benzonatate [Tessalon Perles] 100 mg PO TID PRN PRN Reason: Cough Cranberry Fruit Extract [Cranberry] 500 mg PO DAILY Aspirin [Adult Low Dose Aspirin EC] 81 mg PO DAILY Discontinued Chlorthalidone [Hygroton] 25 mg PO DAILY Atenolol/Chlorthalidone [Atenolol-Chlorthalidone 100-25] 1 tab PO DAILY Discharge Medication List Calcium Carbonate/Vitamin D3 [Calcium 600-Vit D3 62.5 Mcg (2,500 Iu)] 1 cap PO BID-W/MEALS 03/17/20 [History] Carboxymethylcellulose Sodium [Refresh Tears] 1 drop BOTH EYES BID 03/17/20 [History] Fluticasone Propion/Salmeterol [Advair Hfa 115-21 Mcg Inhaler] 2 puff INHALATION RT-BID 03/17/20 [History] Levothyroxine Sodium [Synthroid] 75 mcg PO HS 03/17/20 [History] Vitc/E/Zinc/Copper/Lutein/Zeax [Icaps Areds2 Tablet] 1 tab PO BID-W/MEALS 03/17/20 [History] Nitroglycerin Sl Tabs [Nitrostat] 0.4 mg SUBLINGUAL Q5M PRN #25 tab 03/21/20 [Rx] Albuterol Inhaler [Ventolin Hfa Inhaler] 1 puff INHALATION RT-HS 04/08/23 [History] Atorvastatin [Lipitor] 10 mg PO HS 04/08/23 [History] Aspirin [Adult Low Dose Aspirin EC] 81 mg PO DAILY 07/07/23 [History] Azelastine HCl [Astelin Nasal [place]] 137 mcg NASAL BID 07/07/23 [History] Benzonatate [Tessalon Perles] 100 mg PO TID PRN 07/07/23 [History] Cranberry Fruit Extract [Cranberry] 500 mg PO DAILY 07/07/23 [History] Estradiol Cream [Estrace Cream 0.01%] 1 gm VAGINAL DIRECTED 07/07/23 [History] Fexofenadine HCl [Stacy Allergy] 180 mg PO DAILY 07/07/23 [History] Omeprazole [PriLOSEC] 40 mg PO DAILY 07/07/23 [History] atenoloL [Tenormin] 100 mg PO DAILY #90 tablet 07/08/23 [Rx] Follow up Appointment(s)/Referral(s): Trent Becerra DO [STAFF PHYSICIAN] - 1 Week Janna Reyes DO [Primary Care Provider] - 1-2 days Discharge Disposition: HOME SELF-CARE
== END 2023-07-08 14:09 | disposition home or self-care (01) | DRG 315 ==
LOC: EC 11:38 → 4SSUR 14:39
PROVIDERS: ADMIT Internal Medicine; ATTEND Internal Medicine
DX: I95.9 Hypotension, unspecified (principal); E87.1 Hypo-osmolality and hyponatremia; G45.9 Transient cerebral ischemic attack, unspecified; I25.10 Atherosclerotic heart disease of native coronary artery without angina pectoris; E86.0 Dehydration; E78.5 Hyperlipidemia, unspecified; E86.1 Hypovolemia; Z87.19 Personal history of other diseases of the digestive system; E03.9 Hypothyroidism, unspecified; I10 Essential (primary) hypertension; T50.2X5A Adverse effect of carbonic-anhydrase inhibitors, benzothiadiazides and other diuretics, initial encounter; X58.XXXA Exposure to other specified factors, initial encounter; J45.909 Unspecified asthma, uncomplicated; J44.9 Chronic obstructive pulmonary disease, unspecified; I08.0 Rheumatic disorders of both mitral and aortic valves; Z90.710 Acquired absence of both cervix and uterus; Z79.890 Hormone replacement therapy; Z79.82 Long term (current) use of aspirin; Z79.899 Other long term (current) drug therapy; Z90.49 Acquired absence of other specified parts of digestive tract; Z20.822 Contact with and (suspected) exposure to COVID-19; Z88.8 Allergy status to other drugs, medicaments and biological substances; Z86.14 Personal history of Methicillin resistant Staphylococcus aureus infection
CPT/HCPCS: 36415; 71046; 80053; 81001; 84443; 85025; 85610; 85730; 93005; 94640; 96360; 99285

== ENCOUNTER 2023-08-27 13:33 | Emergency (ER) | payer MEDICARE, OTHER ==
--- NOTE | 2023-08-27 13:57 | ED ---
General Adult HPI - General Source: patient Mode of arrival: wheelchair Limitations: no limitations <Bianka Ying - Last Filed: 08/27/23 13:56> <Valentin hWitten - Last Filed: 08/27/23 19:50> - General Stated complaint: pneumonia - History of Present Illness Initial comments: The patient is an 88-year-old female presents emergency room accompanied by her family member for worsening cough, shortness breath and weakness. Patient just started antibiotics for pneumonia. They started her on Levaquin to also cover for an ongoing UTI. Patient is having a difficult time taking the antibiotics as they're causing a lot of side effects. (Bianka Ying) Dictation was produced using [employer] dictation software. please excuse any gra mmatical, word or spelling errors. Chief Complaint: 88-year-old female presents to the ER for pneumonia History of Present Illness: Patient is an 88-year-old female presents emergency department for pneumonia. Patient's been having pneumonia symptoms for quite some time now she was seen at her primary care physician's office earlier with this week and was prescribed Levaquin to treat pneumonia and UTI. Patient having nonproductive cough. Patient is afebrile. The ROS documented in this emergency department record has been reviewed and confirmed by me. Those systems with pertinent positive or negative responses have been documented in the HPI. All other systems are other negative and/or noncontributory. (Valentin Whitten) - Related Data Home Medications Medication Instructions Recorded Confirmed Calcium Carbonate/Vitamin D3 1 cap PO BID-W/MEALS 03/17/20 07/07/23 [Calcium 600-Vit D3 62.5 Mcg (2,500 Iu)] Carboxymethylcellulose Sodium 1 drop BOTH EYES BID 03/17/20 07/07/23 [Refresh Tears] Fluticasone Propion/Salmeterol 2 puff INHALATION RT-BID 03/17/20 07/07/23 [Advair Hfa 115-21 Mcg Inhaler] Levothyroxine Sodium [Synthroid] 75 mcg PO HS 03/17/20 07/07/23 Vitc/E/Zinc/Copper/Lutein/Zeax 1 tab PO BID-W/MEALS 03/17/20 07/07/23 [Icaps Areds2 Tablet] Albuterol Inhaler [Ventolin Hfa 1 puff INHALATION RT-HS 04/08/23 07/07/23 Inhaler] Atorvastatin [Lipitor] 10 mg PO HS 04/08/23 07/07/23 Aspirin [Adult Low Dose Aspirin EC] 81 mg PO DAILY 07/07/23 07/07/23 Azelastine HCl [Astelin Nasal 137 mcg NASAL BID 07/07/23 07/07/23 [place]] Benzonatate [Tessalon Perles] 100 mg PO TID PRN 07/07/23 07/07/23 Cranberry Fruit Extract [Cranberry] 500 mg PO DAILY 07/07/23 07/07/23 Estradiol Cream [Estrace Cream 1 gm VAGINAL DIRECTED 07/07/23 07/07/23 0.01%] Fexofenadine HCl [Stacy Allergy] 180 mg PO DAILY 07/07/23 07/07/23 Omeprazole [PriLOSEC] 40 mg PO DAILY 07/07/23 07/07/23 Previous Rx's Medication Instructions Recorded Nitroglycerin Sl Tabs [Nitrostat] 0.4 mg SUBLINGUAL Q5M PRN #25 tab 03/21/20 atenoloL [Tenormin] 100 mg PO DAILY #90 tablet 07/08/23 Allergies Allergy/AdvReac Type Severity Reaction Status Date / Time meloxicam [From Mobic] AdvReac increased Verified 07/07/23 12:02 b/p rofecoxib [From Vioxx] AdvReac increased Verified 07/07/23 12:02 b/p Rgfzavj-ODE-JtK Reductase AdvReac muscle pain Verified 07/07/23 12:02 Inhibitor [Cxuahab-Hcg-Aes Reductase Inhibitor] Review of Systems ROS Other: All systems not noted in ROS Statement are negative. <Bianka Ying - Last Filed: 08/27/23 13:56> ROS Other: All systems not noted in ROS Statement are negative. <Valentin Whitten - Last Filed: 08/27/23 19:50> ROS Statement: Those systems with pertinent positive or pertinent negative responses have been documented in the HPI. 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, hx diverticulitis History of Any Multi-Drug Resistant Organisms: MRSA Date of last positivie culture/infection: 2013 MDRO Source:: abdominal wound Past Surgical History: Bowel Resection, Hysterectomy Additional Past Surgical History / Comment(s): thyroidectomy Past Anesthesia/Blood Transfusion Reactions: No Reported Reaction Past Psychological History: No Psychological Hx Reported Past Alcohol Use History: None Reported Past Drug Use History: None Reported - Past Family History Mother Family Medical History: Cancer Additional Family Medical History / Comment(s): breast Sister(s) Family Medical History: Cancer <Bianka Ying - Last Filed: 08/27/23 13:56> General Exam Limitations: no limitations <Bianka Ying - Last Filed: 08/27/23 13:56> <Valentin Whitten - Last Filed: 08/27/23 19:50> - General Exam Comments Initial Comments: Visual Physical Exam Vital signs reviewed General: Well-appearing, nontoxic, no acute distress. Head: Normocephalic, atraumatic Eyes: PERRLA, EOMI ENT: Airway patent Chest: Nonlabored breathing Skin: No visual rash, normal skin tone Neuro: Alert and oriented 3 Musculoskeletal: No gross abnormalities (Bianka Ying) PHYSICAL EXAM: General Impression: Alert and oriented x3, not in acute distress HEENT: Normocephalic atraumatic, extra-ocular movements intact, pupils equal and reactive to light bilaterally, mucous membranes moist. Cardiovascular: Heart regular rate and rhythm Chest: Able to complete full sentences, no retractions, no tachypnea Abdomen: abdomen soft, non-tender, non-distended, no organomegaly Musculoskeletal: Pulses present and equal in all extremities, no peripheral edema Motor: no focal deficits noted Neurological: CN II-XII grossly intact, no focal motor or sensory deficits noted Skin: Intact with no visualized rashes Psych: Normal affect and mood (Valentin Whitten) Course Vital Signs 08/27/23 08/27/23 13:52 18:38 Temperature 97.6 F Pulse Rate 71 69 Respiratory 16 18 Rate Blood Pressure 107/62 144/78 O2 Sat by Pulse 98 96 Oximetry Medical Decision Making <Bianka Ying - Last Filed: 08/27/23 13:56> - Lab Data Result diagrams: 08/27/23 14:22 08/27/23 14:22 <Valentin Whitten - Last Filed: 08/27/23 19:50> - Medical Decision Making The quick note portion completed by myself, electronically signed by PAC. Callum (Bianka Ying) Was pt. sent in by a medical professional or institution (, PA, [employer], urgent care, hospital, or halfway...) When possible be specific @ -No Did you speak to anyone other than the patient for history (EMS, parent, family, police, friend...)? What history was obtained from this source @ -No Did you review nursing and triage notes (agree or disagree)? Why? @ -I reviewed and agree with nursing and triage notes Were old charts reviewed (outside hosp., previous admission, EMS record, old EKG, old radiological studies, urgent care reports/EKG's, halfway records)? Report findings @ -No old charts were reviewed Differential Diagnosis (chest pain, altered mental status, abdominal pain women, abdominal pain men, vaginal bleeding, musculoskeletal, weakness, fever, dyspnea, syncope, headache, dizziness, GI bleed, back pain, seizure, CVA, palpatations, mental health)? @ -Differential Dyspnea: Coronary syndrome, arrhythmia, tamponade, asthma, COPD, pulmonary embolism, pneumonia, pneumothorax, pulmonary effusion, anaphylaxis, diabetic ketoacidosis, flailed chest, pulmonary contusion, diaphragmatic rupture, anemia, neuromuscular, this is not meant to be an all-inclusive list. EKG interpreted by me (3pts min.). @ -None done X-rays interpreted by me (1pt min.). @ -Chest x-ray is nonacute CT interpreted by me (1pt min.). @ -None done U/S interpreted by me (1pt. min.). @ -None done What testing was considered but not performed or refused? (CT, X-rays, U/S, labs)? Why? @ -None What meds were considered but not given or refused? Why? @ -None Did you discuss the management of the patient with other professionals (professionals i.e. , PA, [employer], lab, RT, psych nurse, family welfare social work professor, hose inspector and patcher, t eacher, alumni relations officer, caseworker protective services)? Give summary @ -No Was smoking cessation discussed for >3mins.? @ -No Was critical care preformed (if so, how long)? @ -No Were there social determinants of health that impacted care today? How? (Homelessness, low income, unemployed, alcoholism, drug addiction, transportation, low edu. Level, literacy, decrease access to med. care, penitentiary, rehab)? @ -No Was there de-escalation of care discussed even if they declined (Discuss DNR or withdrawal of care, Hospice)? DNR status @ -No What co-morbidities impacted this encounter? (DM, HTN, Smoking, COPD, CAD, Cancer, CVA, ARF, Chemo, Hep., AIDS, mental health diagnosis, sleep apnea, morbid obesity)? @ -None Was patient admitted / discharged? Hospital course, mention meds given and ro severiano, prescriptions, significant lab abnormalities, going to OR and other pertinent info. @ -88-year-old female presents emergency department after being told she has pneumonia. Vital signs are stable. Patient afebrile she is well-appearing at the bedside. She is not hypoxic. Laboratory evaluation unremarkable. She does have some mild hyponatremia however. Patient coronavirus positive. X-rays negative. Patient told that she has coronavirus. She does not make criteria for antiviral administration due to duration of symptoms. Undiagnosed new problem with uncertain prognosis? @ -No Drug Therapy requiring intensive monitoring for toxicity (Heparin, Nitro, Insulin, Cardizem)? @ -No Were any procedures done? @ -No Diagnosis/symptom? Acute, or Chronic, or Acute on Chronic? Uncomplicated (without systemic symptoms) or Complicated (systemic symptoms)? @ -Coronavirus Side effects of treatment? @ -No Exacerbation, Progression, or Severe Exacerbation? @ -No Poses a threat to life or bodily function? How? (Chest pain, [place], [place], pneumonia, PE, COPD, DKA, ARF, appy, cholecystitis, CVA, Diverticulitis, Homicidal, Suicidal, threat to staff... and all critical care pts) @ -No (Valentin Whitten) - Lab Data Lab Results 08/27/23 08/27/23 08/27/23 Range/Units 14:22 14:22 14:22 WBC 7.4 (3.8-10.6) k/uL RBC 4.31 (3.80-5.40) m/uL Hgb 13.2 (11.4-16.0) gm/dL Hct 40.0 (34.0-46.0) % MCV 92.7 (80.0-100.0) fL MCH 30.6 (25.0-35.0) pg MCHC 33.0 (31.0-37.0) g/dL RDW 14.6 (11.5-15.5) % Plt Count 338 (150-450) k/uL MPV 7.7 Neutrophils % 79 % Lymphocytes % 13 % Monocytes % 6 % Eosinophils % 1 % Basophils % 0 % Neutrophils # 5.8 (1.3-7.7) k/uL Lymphocytes # 1.0 (1.0-4.8) k/uL Monocytes # 0.4 (0-1.0) k/uL Eosinophils # 0.1 (0-0.7) k/uL Basophils # 0.0 (0-0.2) k/uL Sodium 129 L (137-145) mmol/L Potassium 3.4 L (3.5-5.1) mmol/L Chloride 89 L (98-107) mmol/L Carbon Dioxide 28 (22-30) mmol/L Anion Gap 12 mmol/L BUN 22 H (7-17) mg/dL Creatinine 0.63 (0.52-1.04) mg/dL Est GFR (CKD-EPI)AfAm >90 (>60 ml/min/1.73 sqM) Est GFR (CKD-EPI)NonAf 80 (>60 ml/min/1.73 sqM) Glucose 103 H (74-99) mg/dL Calcium 9.7 (8.4-10.2) mg/dL Total Bilirubin 0.8 (0.2-1.3) mg/dL AST 27 (14-36) U/L ALT 17 (4-34) U/L Alkaline Phosphatase 62 (38-126) U/L Troponin I <0.012 (0.000-0.034) ng/mL NT-Pro-B Natriuret Pep 2160 pg/mL Total Protein 6.2 L (6.3-8.2) g/dL Albumin 3.8 (3.5-5.0) g/dL Influenza Type A (PCR) (Not Detectd) Influenza Type B (PCR) (Not Detectd) RSV (PCR) (Not Detectd) SARS-CoV-2 (PCR) (Not Detectd) 08/27/23 Range/Units 18:46 WBC (3.8-10.6) k/uL RBC (3.80-5.40) m/uL Hgb (11.4-16.0) gm/dL Hct (34.0-46.0) % MCV (80.0-100.0) fL MCH (25.0-35.0) pg MCHC (31.0-37.0) g/dL RDW (11.5-15.5) % Plt Count (150-450) k/uL MPV Neutrophils % % Lymphocytes % % Monocytes % % Eosinophils % % Basophils % % Neutrophils # (1.3-7.7) k/uL Lymphocytes # (1.0-4.8) k/uL Monocytes # (0-1.0) k/uL Eosinophils # (0-0.7) k/uL Basophils # (0-0.2) k/uL Sodium (137-145) mmol/L Potassium (3.5-5.1) mmol/L Chloride (98-107) mmol/L Carbon Dioxide (22-30) mmol/L Anion Gap mmol/L BUN (7-17) mg/dL Creatinine (0.52-1.04) mg/dL Est GFR (CKD-EPI)AfAm (>60 ml/min/1.73 sqM) Est GFR (CKD-EPI)NonAf (>60 ml/min/1.73 sqM) Glucose (74-99) mg/dL Calcium (8.4-10.2) mg/dL Total Bilirubin (0.2-1.3) mg/dL AST (14-36) U/L ALT (4-34) U/L Alkaline Phosphatase (38-126) U/L Troponin I (0.000-0.034) ng/mL NT-Pro-B Natriuret Pep pg/mL Total Protein (6.3-8.2) g/dL Albumin (3.5-5.0) g/dL Influenza Type A (PCR) Not Detected (Not Detectd) Influenza Type B (PCR) Not Detected (Not Detectd) RSV (PCR) Not Detected (Not Detectd) SARS-CoV-2 (PCR) Detected A (Not Detectd) Disposition <Bianka Ying - Last Filed: 08/27/23 13:56> Is patient prescribed a controlled substance at d/c from ED?: No Time of Disposition: 19:47 <Valentin Whitten - Last Filed: 08/27/23 19:50> Clinical Impression: Coronavirus infection Disposition: HOME SELF-CARE Condition: Fair Instructions (If sedation given, give patient instructions): Coronavirus Disease 2019 (COVID-19) Referrals: Janna Reyes DO [Primary Care Provider] - 1-2 days
[2023-08-27 14:13] VITALS: TEMP 97.6
[2023-08-27 14:36] LABS: Basophils % (A) 0 %; Eosinophils # (A) 0.1 k/uL (0-0.7); Eosinophils % (A) 1 %; HGB 13.2 gm/dL (11.4-16.0); Lymphocytes % (A) 13 %; MCH 30.6 pg (25.0-35.0); MCV 92.7 fL (80.0-100.0); Mean Platelet Volume 7.7; Monocytes # (A) 0.4 k/uL (0-1.0); Monocytes % (A) 6 %; Neutrophils # (A) 5.8 k/uL (1.3-7.7); Neutrophils % (A) 79 %; Platelet Count 338 k/uL (150-450); RBC 4.31 m/uL (3.80-5.40); RDW 14.6 % (11.5-15.5); WBC 7.4 k/uL (3.8-10.6)
[2023-08-27 14:56] LABS: ALT 17 U/L (4-34); AST 27 U/L (14-36); African American GFR (CKD) >90 (>60 ml/min/1.73 sqM); Albumin 3.8 g/dL (3.5-5.0); Alkaline Phosphatase 62 U/L (38-126); Anion Gap 12 mmol/L; Blood Urea Nitrogen 22 mg/dL (7-17); Calcium 9.7 mg/dL (8.4-10.2); Carbon Dioxide 28 mmol/L (22-30); Chloride 89 mmol/L (98-107); Glucose 103 mg/dL (74-99); Non-African American GFR(CKD) 80 (>60 ml/min/1.73 sqM); Potassium 3.4 mmol/L (3.5-5.1); Sodium 129 mmol/L (137-145); Total Bilirubin 0.8 mg/dL (0.2-1.3); Total Protein 6.2 g/dL (6.3-8.2)
[2023-08-27 15:04] LABS: NT-Pro-B-Type Natriuretic Pept 2160 pg/mL
--- NOTE | 2023-08-27 15:19 | XR ---
EXAMINATION TYPE: XR chest 2V DATE OF EXAM: 08/27/2023 COMPARISON: 07/07/2023. HISTORY: Cough and congestion. TECHNIQUE: Frontal and lateral views of the chest are obtained. FINDINGS: There is no focal air space opacity, pleural effusion, or pneumothorax seen. The cardiac silhouette size is within normal limits. The osseous structures are intact. IMPRESSION: No acute cardiopulmonary process.
[2023-08-27 18:57] VITALS: RESP 18
[2023-08-27 20:17] VITALS: BP 129/68; PULSE 72
== END 2023-08-27 20:16 | disposition home or self-care (01) ==
LOC: EC 13:33
DX: U07.1 COVID-19 (principal); J45.909 Unspecified asthma, uncomplicated; I10 Essential (primary) hypertension; E07.9 Disorder of thyroid, unspecified; E78.5 Hyperlipidemia, unspecified; M19.90 Unspecified osteoarthritis, unspecified site; Z79.890 Hormone replacement therapy; Z79.1 Long term (current) use of non-steroidal anti-inflammatories (NSAID); Z79.899 Other long term (current) drug therapy; Z79.51 Long term (current) use of inhaled steroids; Z79.82 Long term (current) use of aspirin; Z88.8 Allergy status to other drugs, medicaments and biological substances; Z20.822 Contact with and (suspected) exposure to COVID-19
CPT/HCPCS: 36415; 71046; 80053; 83880; 84484; 85025; 87040; 87636; 93005; 99285

== ENCOUNTER → 2023-12-19 | Outpatient (CLI) | payer MEDICARE, OTHER | END | disposition home or self-care (01) | LOC: LABWHC1 14:33 | PROVIDERS: ATTEND Family Medicine | DX: N39.0 Urinary tract infection, site not specified (principal) | CPT/HCPCS: 87086 ==

== ENCOUNTER 2024-01-27 11:06 | Inpatient (IN) | payer MEDICARE, OTHER ==
--- NOTE | 2024-01-27 11:42 | ED ---
General Adult HPI - General Chief complaint: Neuro Symptoms/Deficit Stated complaint: AMS Time Seen by Provider: 01/27/24 11:20 Source: patient, family Mode of arrival: wheelchair Limitations: no limitations - History of Present Illness Initial comments: Dictation was produced using [employer] dictation software. please excuse any grammatical, word or spelling errors. Chief Complaint: 88-year-old female presents to the emergency department for strokelike symptoms History of Present Illness: Patient is 88-year-old female she presents to the emergency department for strokelike symptoms. History of present illness obtained from family member at the bedside. She went to the care transport nurse office for her usual 3-month appointment. Family member at the bedside told the care transport nurse that she has been forgetful and having strokelike symptoms. Cardio logist did evaluate the patient told her that she should come to the emergency department because of some left facial droop and forgetfulness that she may be having a stroke. Patient states that she notices and feels that her left face is a little droopy. Family member at the bedside reports that patient's been forgetful more than usual. She is also been showing some confusion. Patient denies any headache. Denies any extremity issues. No vision changes The ROS documented in this emergency department record has been reviewed and confirmed by me. Those systems with pertinent positive or negative responses have been documented in the HPI. All other systems are other negative and/or noncontributory. - Related Data Home Medications Medication Instructions Recorded Confirmed RX: Calcium Carbonate/Vitamin D3 1 cap PO BID-W/MEALS 03/17/20 07/07/23 [Calcium 600-Vit D3 62.5 Mcg (2,500 Iu)] RX: Carboxymethylcellulose Sodium 1 drop BOTH EYES BID 03/17/20 07/07/23 [Refresh Tears] RX: Fluticasone Propion/Salmeterol 2 puff INHALATION RT-BID 03/17/20 07/07/23 [Advair Hfa 115-21 Mcg Inhaler] RX: Levothyroxine Sodium 75 mcg PO HS 03/17/20 07/07/23 [Synthroid] RX: Vitc/E/Zinc/Copper/Lutein/Zeax 1 tab PO BID-W/MEALS 03/17/20 07/07/23 [Icaps Areds2 Tablet] RX: Albuterol Inhaler [Ventolin 1 puff INHALATION RT-HS 04/08/23 07/07/23 Hfa Inhaler] RX: Atorvastatin [Lipitor] 10 mg PO HS 04/08/23 07/07/23 RX: Aspirin [Adult Low Dose 81 mg PO DAILY 07/07/23 07/07/23 Aspirin EC] RX: Azelastine HCl [Astelin Nasal 137 mcg NASAL BID 07/07/23 07/07/23 Williams] RX: Benzonatate [Tessalon Perles] 100 mg PO TID PRN 07/07/23 07/07/23 RX: Cranberry Fruit Extract 500 mg PO DAILY 07/07/23 07/07/23 [Cranberry] RX: Estradiol Cream [Estrace Cream 1 gm VAGINAL DIRECTED 07/07/23 07/07/23 0.01%] RX: Fexofenadine HCl [Stacy 180 mg PO DAILY 07/07/23 07/07/23 Allergy] RX: Omeprazole [PriLOSEC] 40 mg PO DAILY 07/07/23 07/07/23 Previous Rx's Medication Instructions Recorded RX: Nitroglycerin Sl Tabs 0.4 mg SUBLINGUAL Q5M PRN #25 tab 03/21/20 [Nitrostat] RX: atenoloL [Tenormin] 100 mg PO DAILY #90 tablet 07/08/23 Allergies Allergy/AdvReac Type Severity Reaction Status Date / Time meloxicam [From Mobic] AdvReac increased Verified 01/27/24 13:05 b/p rofecoxib [From Vioxx] AdvReac increased Verified 01/27/24 13:05 b/p Pgonqoq-FTU-GkK Reductase AdvReac muscle pain Verified 01/27/24 13:05 Inhibitor [Hxaaznb-Rsb-Dme Reductase Inhibitor] Review of Systems ROS Statement: Those systems with pertinent positive or pertinent negative responses have been documented in the HPI. ROS Other: All systems not noted in ROS Statement are negative. 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, hx diverticulitis History of Any Multi-Drug Resistant Organisms: MRSA Date of last positivie culture/infection: 2013 MDRO Source:: abdominal wound Past Surgical History: Bowel Resection, Hysterectomy Additional Past Surgical History / Comment(s): thyroidectomy Past Anesthesia/Blood Transfusion Reactions: No Reported Reaction Past Psychological History: No Psychological Hx Reported Past Alcohol Use History: None Reported Past Drug Use History: None Reported - Past Family History Mother Family Medical History: Cancer Additional Family Medical History / Comment(s): breast Sister(s) Family Medical History: Cancer General Exam - General Exam Comments Initial Comments: PHYSICAL EXAM: General Impression: Alert and oriented x3, not in acute distress HEENT: Normocephalic atraumatic, extra-ocular movements intact, pupils equal and reactive to light bilaterally, mucous membranes moist. Cardiovascular: Heart regular rate and rhythm Chest: Able to complete full sentences, no retractions, no tachypnea Abdomen: abdomen soft, non-tender, non-distended, no organomegaly Musculoskeletal: Pulses present and equal in all extremities, no peripheral edema Motor: no focal deficits noted Neurological: Mild left-sided facial droop, no focal motor or sensory deficits noted, NIH of 1 Skin: Intact with no visualized rashes Psych: Normal affect and mood Limitations: no limitations Course Vital Signs 01/27/24 01/27/24 01/27/24 11:08 11:30 12:04 Temperature 97.8 F 98.4 F Pulse Rate 63 61 65 Respiratory 16 16 17 Rate Blood Pressure 121/65 136/67 115/65 O2 Sat by Pulse 100 97 97 Oximetry 01/27/24 13:01 Temperature 98.1 F Pulse Rate 61 Respiratory 17 Rate Blood Pressure 128/65 O2 Sat by Pulse 97 Oximetry - Reevaluation(s) Reevaluation #1: 01/27/24 11:41 Patient is not a candidate for alteplase or thrombectomy given that she is outside the window of any sort of treatment. Furthermore she is a low NIH score EKG Findings - EKG Comments: EKG Findings:: My EKG interpretation: Ventricular rate 62, sinus rhythm,. 179, cures 82, QTc 408. No NM prolongation, no QTC prolongation, no ST or T-wave changes noted. Overall, this EKG is unremarkable Medical Decision Making - Medical Decision Making Was pt. sent in by a medical professional or institution (, PA, ASSOCIATE DIRECTOR DATA & ANALYTICS, urgent care, hospital, or longterm...) When possible be specific @ -No Did you speak to anyone other than the patient for history (EMS, parent, family, police, friend...)? What history was obtained from this source @ -No Did you review nursing and triage notes (agree or disagree)? Why? @ -I reviewed and agree with nursing and triage notes Were old charts reviewed (outside hosp., previous admission, EMS record, old EKG, old radiological studies, urgent care reports/EKG's, longterm records)? Report findings @ -No old charts were reviewed Differential Diagnosis (chest pain, altered mental status, abdominal pain women, abdominal pain men, vaginal bleeding, musculoskeletal, weakness, fever, dyspnea, syncope, headache, dizziness, GI bleed, back pain, seizure, CVA, palpatations, mental health)? @ - Differential CVA: Ischemic stroke, hemorrhagic stroke, brain tumor, atypical migraine, Wernicke's encephalopathy, seizure, multiple sclerosis, meningitis, encephalitis, hypoglycemia, Guillain-Miller, electrolytes disturbance, myasthenia gravis.... This is not meant to be an all-inclusive list EKG interpreted by me (3pts min.). @ -See above X-rays interpreted by me (1pt min.). @ -None done CT interpreted by me (1pt min.). @ -CT brain is nonacute U/S interpreted by me (1pt. min.). @ -None done What testing was considered but not performed or refused? (CT, X-rays, U/S, labs)? Why? @ -None What meds were considered but not given or refused? Why? @ -None Did you discuss the management of the patient with other professionals (professionals i.e. , PA, ASSOCIATE DIRECTOR DATA [employer] ANALYT[employer], lab, RT, psych nurse, social services aide, goodwill ambassador, teacher, upscale security officer, special education case manager)? Give summary @ -Case discussed with hospitalist for admission Was smoking cessation discussed for >3mins.? @ -No Was critical care preformed (if so, how long)? @ -No Were there social determinants of health that impacted care today? How? (Homelessness, low income, unemployed, alcoholism, drug addiction, transportation, low edu. Level, literacy, decrease access to med. care, half-way, rehab)? @ -No Was there de-escalation of care discussed even if they declined (Discuss DNR or withdrawal of care, Hospice)? DNR status @ -No What co-morbidities impacted this encounter? (DM, HTN, Smoking, COPD, CAD, Cancer, CVA, ARF, Chemo, Hep., AIDS, mental health diagnosis, sleep apnea, morbid obesity)? @ -None Was patient admitted / discharged? Hospital course, mention meds given and route, prescriptions, significant lab abnormalities, going to OR and other pertinent info. @ -88-year-old female presents emergency department for strokelike symptoms. Patient had last been normal per daughter at the bedside about a week ago. Vital signs upon arrival are within acceptable limits. She does have a left facial droop. Patient does not appear to be aphasic or dysarthric at the bedside. Laboratory evaluation is unremarkable. CT brain is negative for any bleed or mass. Patient given aspirin. Disposition options discussed with patient and family member at the bedside. Patient agreeable for admission with consultation to neurology. Undiagnosed new problem with uncertain prognosis? @ -No Drug Therapy requiring intensive monitoring for toxicity (Heparin, Nitro, Insulin, Cardizem)? @ -No Were any procedures done? @ -No Diagnosis/symptom? Acute, or Chronic, or Acute on Chronic? Uncomplicated (without systemic symptoms) or Complicated (systemic symptoms)? @ -Strokelike symptoms Side effects of treatment? @ -No Exacerbation, Progression, or Severe Exacerbation? @ -No Poses a threat to life or bodily function? How? (Chest pain, USA, AR, pneumonia, PE, COPD, DKA, ARF, appy, cholecystitis, CVA, Diverticulitis, Homicidal, Suicidal, threat to staff... and all critical care pts) @ -yes - Lab Data Result diagrams: 01/27/24 11:29 01/27/24 11:39 Lab Results 01/27/24 01/27/24 01/27/24 Range/Units 11:29 11:39 12:05 WBC 9.5 (3.8-10.6) k/uL RBC 4.09 (3.80-5.40) m/uL Hgb 12.7 (11.4-16.0) gm/dL Hct 38.8 (34.0-46.0) % MCV 94.7 (80.0-100.0) fL MCH 31.0 (25.0-35.0) pg MCHC 32.7 (31.0-37.0) g/dL RDW 13.7 (11.5-15.5) % Plt Count 292 (150-450) k/uL MPV 8.3 Neutrophils % 76 % Lymphocytes % 14 % Monocytes % 6 % Eosinophils % 1 % Basophils % 0 % Neutrophils # 7.3 (1.3-7.7) k/uL Lymphocytes # 1.4 (1.0-4.8) k/uL Monocytes # 0.6 (0-1.0) k/uL Eosinophils # 0.1 (0-0.7) k/uL Basophils # 0.0 (0-0.2) k/uL PT 11.4 (10.0-12.5) sec INR 1.0 (<1.2) APTT 24.9 (22.0-30.0) sec Sodium 133 L (137-145) mmol/L Potassium 3.9 (3.5-5.1) mmol/L Chloride 95 L (98-107) mmol/L Carbon Dioxide 32 H (22-30) mmol/L Anion Gap 6 mmol/L BUN 28 H (7-17) mg/dL Creatinine 0.59 (0.52-1.04) mg/dL Est GFR (CKD-EPI)AfAm >90 (>60 ml/min/1.73 sqM) Est GFR (CKD-EPI)NonAf 82 (>60 ml/min/1.73 sqM) Glucose 89 (74-99) mg/dL Calcium 9.4 (8.4-10.2) mg/dL Disposition Clinical Impression: Cerebrovascular accident (CVA) Disposition: ADMITTED IP TO THIS HOSP Condition: Fair Referrals: Janna Reyes DO [Primary Care Provider] - 1-2 days Decision Time: 13:09
[2024-01-27 12:04] LABS: African American GFR (CKD) >90 (>60 ml/min/1.73 sqM); Anion Gap 6 mmol/L; Blood Urea Nitrogen 28 mg/dL (7-17); Calcium 9.4 mg/dL (8.4-10.2); Carbon Dioxide 32 mmol/L (22-30); Chloride 95 mmol/L (98-107); Glucose 89 mg/dL (74-99); Non-African American GFR(CKD) 82 (>60 ml/min/1.73 sqM); Sodium 133 mmol/L (137-145)
[2024-01-27 12:05] LABS: Potassium 3.9 mmol/L (3.5-5.1)
--- NOTE | 2024-01-27 12:09 | CT ---
EXAMINATION TYPE: CT brain wo con CT DLP: 1089.9 mGycm, Automated exposure control for dose reduction was used. DATE OF EXAM: 01/27/2024 11:57 AM COMPARISON: 03/14/2018. CLINICAL INDICATION:Female, 88 years old with history of cva, sent by fishing manager for facial droop TECHNIQUE: Brain: Axial CT images of the brain were obtained with coronal and sagittal reformats created and rev iewed. Contrast used: None. Oral contrast used: None. FINDINGS: Brain: Extra-axial spaces: No abnormal extra-axial fluid collections. Ventricular system: Dilatation in proportion to cerebral atrophy. Cerebral parenchyma: Cerebral atrophy. No acute intraparenchymal hemorrhage or mass effect. The lima -white junction is well differentiated. Scattered hypoattenuating areas are seen within the white mat ter. Cerebellum: Unremarkable. Mass effect: No evidence of midline shift. Intracranial vasculature: unremarkable Soft tissues: Normal. Calvarium/osseous structures: No depressed skull fracture. Paranasal sinuses and mastoid air cells: Mild scattered paranasal sinus disease. Visualized orbits: Bilateral aphakia IMPRESSION: 1. No acute intracranial process. 2. Nonspecific white matter changes, likely secondary to chronic small vessel ischemic disease.
[2024-01-27 12:33] LABS: Partial Thromboplastin Time 24.9 sec (22.0-30.0); Prothrombin Time 11.4 sec (10.0-12.5)
[2024-01-27 12:54] LABS: Basophils % (A) 0 %; Eosinophils # (A) 0.1 k/uL (0-0.7); Eosinophils % (A) 1 %; HCT 38.8 % (34.0-46.0); HGB 12.7 gm/dL (11.4-16.0); Lymphocytes # (A) 1.4 k/uL (1.0-4.8); Lymphocytes % (A) 14 %; MCHC 32.7 g/dL (31.0-37.0); MCV 94.7 fL (80.0-100.0); Mean Platelet Volume 8.3; Monocytes # (A) 0.6 k/uL (0-1.0); Monocytes % (A) 6 %; Neutrophils # (A) 7.3 k/uL (1.3-7.7); Neutrophils % (A) 76 %; Platelet Count 292 k/uL (150-450); RBC 4.09 m/uL (3.80-5.40); RDW 13.7 % (11.5-15.5); WBC 9.5 k/uL (3.8-10.6)
[2024-01-27] MEDS ORDERED: NALOXONE 0.4 MG/ML 1 ML VIAL IV PRN (13:07)
[2024-01-27] MEDS: ASPIRIN 81 MG PO STA (13:13)
[2024-01-27] MEDS ORDERED: ALBUTEROL NEBULIZED 2.5 MG/3 ML INHALATION PRN (13:13)
[2024-01-27] MEDS: SODIUM CHLORIDE 0.9% 1,000 ML IV SCH (13:14)
[2024-01-27] MEDS ORDERED: hydrALAZINE HCL 20 MG/ML 1 ML VIAL IVP PRN (14:19)
--- NOTE | 2024-01-27 14:20 | P.HPIM ---
History of Present Illness H&P Date: 01/27/24 Chief Complaint: Aphasia * 88-year-old patient with past medical history significant for hypertension, coronary artery disease, hyperlipidemia, mitral regurgitation, asthma presents to the emergency department with complaints of strokelike symptoms. Patient was sent in from cardiology office. Patient was assisted by daughter at bedside who assisted with history taking. Patient was sent in from cardiology office for evaluation of facial droop as well as slurred speech. At the time of presentation in ER patient was noted to have left-sided facial droop, family was at bedside who assisted with history taking. Patient had also been forgetful. Last well-known unknown. Workup initiated in ER included CT head which was negative for acute intracranial process and MRI brain recommended. * EKG obtained in ER showed sinus rhythm no significant ST segment changes. Patient was not considered a candidate for TNK or thrombectomy given outside the window and low NIH score per ED team * Blood work obtained in ER include CBC which were essentially normal, PT/INR within normal limits, serum chemistry showed sodium of 133 potassium 3.9 BUN 28 creatinine 0.59 * Patient to be admitted to medical floor with consultation from neurology REVIEW OF SYSTEMS: Confusion, slurred speech, left-sided facial droop, generalized weakness CONSTITUTIONAL: No fever, no malaise, no fatigue. HEENT: No recent visual problems or hearing problems. Denied any sore throat. CARDIOVASCULAR: No chest pain, orthopnea, PND, no palpitations, no syncope. PULMONARY: No shortness of breath, no cough, no hemoptysis. GASTROINTESTINAL: No diarrhea, no nausea, no vomiting, no abdominal pain. NEUROLOGICAL:Confusion, slurred speech, left-sided facial droop, generalized weakness HEMATOLOGICAL: Denies any bleeding or petechiae. GENITOURINARY: Denies any burning micturition, frequency, or urgency. MUSCULOSKELETAL/RHEUMATOLOGICAL: Denies any joint pain, swelling, or any muscle pain. ENDOCRINE: Denies any polyuria or polydipsia. PHYSICAL EXAMINATION: GENERAL: The patient is alert and oriented x3, HEENT: Pupils are round and equally reacting to light. EOMI. No scleral icterus. CARDIOVASCULAR: S1 and S2 present. No murmurs, rubs, or gallops. PULMONARY: Chest is clear to auscultation, no wheezing or crackles. ABDOMEN: Soft, nontender, nondistended, normoactive bowel sounds. No palpable organomegaly. MUSCULOSKELETAL: No joint swelling or deformity. EXTREMITIES: No cyanosis, clubbing, or pedal edema. NEUROLOGICAL: Dysarthria, motor strength is 4 x 5 left upper extremity, 5 x 5 right upper and lower extremity, 5 x 5 left lower extremity, slight left-sided facial droop Assessment and plan * Acute onset dysarthria with left-sided facial droop suspect CVA * Acute encephalopathy suspected secondary to CVA * Valvular heart disease with mitral regurgitation * Hyperlipidemia * History of coronary artery disease * In regards to workup for CVA CT head obtained, MRI brain ordered neurology consulted, antihypertensive medications on hold to allow permissive hypertension * In regards to encephalopathy continue patient on neurochecks * In regards to hyperlipidemia continue patient on aspirin and Lipitor * Will need physical therapy Occupational Therapy evaluation * CODE STATUS is full code 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, hx diverticulitis History of Any Multi-Drug Resistant Organisms: MRSA Date of last positivie culture/infection: 2013 MDRO Source:: abdominal wound Past Surgical History: Bowel Resection, Hysterectomy Additional Past Surgical History / Comment(s): thyroidectomy Past Anesthesia/Blood Transfusion Reactions: No Reported Reaction Past Psychological History: No Psychological Hx Reported Past Alcohol Use History: None Reported Past Drug Use History: None Reported - Past Family History Mother Family Medical History: Cancer Additional Family Medical History / Comment(s): breast Sister(s) Family Medical History: Cancer Medications and Allergies Home Medications Medication Instructions Recorded Confirmed Type Carboxymethylcellulose Sodium 1 drop BOTH EYES QID PRN 03/17/20 01/27/24 History [Refresh Tears] Levothyroxine Sodium [Synthroid] 75 mcg PO HS 03/17/20 01/27/24 History Vitc/E/Zinc/Copper/Lutein/Zeax 1 tab PO BID-W/MEALS 03/17/20 01/27/24 History [Icaps Areds2 Tablet] Nitroglycerin Sl Tabs [Nitrostat] 0.4 mg SUBLINGUAL Q5M PRN #25 tab 03/21/20 01/27/24 Rx Albuterol Inhaler [Ventolin Hfa 2 puff INHALATION RT-Q6H PRN 04/08/23 01/27/24 History Inhaler] Aspirin [Adult Low Dose Aspirin EC] 81 mg PO W/BRKFST 07/07/23 01/27/24 History Cranberry Fruit Extract [Cranberry] 500 mg PO W/BRKFST 07/07/23 01/27/24 History Fexofenadine HCl [Stacy Allergy] 180 mg PO W/BRKFST 07/07/23 01/27/24 History Atenolol/Chlorthalidone 1 tab PO W/BRKFST 01/27/24 01/27/24 History [Atenolol-Chlorthalidone 100-25] Atorvastatin [Lipitor] 20 mg PO HS 01/27/24 01/27/24 History Calcium Carbonate [Calcium] 1,200 mg PO BID-W/MEALS 01/27/24 01/27/24 History Chlorthalidone [Hygroton] 25 mg PO W/BRKFST 01/27/24 01/27/24 History Fluticasone Propion/Salmeterol 2 puff INHALATION RT-BID 01/27/24 01/27/24 History [Advair Hfa 230-21 Mcg Inhaler] Mirabegron [Myrbetriq] 50 mg PO DAILY@1500 01/27/24 01/27/24 History Telmisartan 80 mg PO W/SUPPER 01/27/24 01/27/24 History cycloSPORINE 0.05% OPHTH SOLN 1 applicator BOTH EYES Q12H 01/27/24 01/27/24 History [Restasis] Allergies Allergy/AdvReac Type Severity Reaction Status Date / Time meloxicam [From Mobic] AdvReac increased Verified 01/27/24 13:05 b/p rofecoxib [From Vioxx] AdvReac increased Verified 01/27/24 13:05 b/p Ygwpavv-BIB-OeE Reductase AdvReac muscle pain Verified 01/27/24 13:16 Inhibitor [Plyjqkh-Ubl-Rer Reductase Inhibitor] Physical Exam Vitals: Vital Signs Temp Pulse Resp BP Pulse Ox 01/27/24 13:01 98.1 F 61 17 128/65 97 01/27/24 12:04 65 17 115/65 97 01/27/24 11:30 98.4 F 61 16 136/67 97 01/27/24 11:08 97.8 F 63 16 121/65 100 Intake and Output 01/26/24 01/27/24 01/27/24 22:59 06:59 14:59 Other: Weight 55.338 kg Results CBC & Chem 7: 01/27/24 11:29 01/27/24 11:39 Labs: Abnormal Lab Results - Last 24 Hours (Table) 01/27/24 Range/Units 11:39 Sodium 133 L (137-145) mmol/L Chloride 95 L (98-107) mmol/L Carbon Dioxide 32 H (22-30) mmol/L BUN 28 H (7-17) mg/dL
[2024-01-27] MEDS: NON FORMULARY DRUG (Mirabegron [Myrbetriq] 50 MG Tab.Er.24h) PO SCH (14:33)
[2024-01-27] MEDS: CALCIUM CARBONATE 500 MG CHEWABLE PO SCH (16:49)
--- NOTE | 2024-01-27 19:26 | US ---
EXAMINATION TYPE: US carotid duplex BILAT DATE OF EXAM: 01/27/2024 COMPARISON: NONE CLINICAL INDICATION: Female, 88 years old with history of ?TIA; Possible TIA TECHNIQUE: Carotid duplex ultrasound examination. Indirect Doppler criteria was utilized. FINDINGS: EXAM MEASUREMENTS: RIGHT: Peak Systolic Velocity (PSV) cm/sec ----- Right CCA: 52.6 ----- Right ICA: 94.4 ----- Right ECA: 54.6 ICA/CCA ratio: 1.8 RIGHT: End Diastole cm/sec ----- Right CCA: 7.99 ----- Right ICA: 22.5 ----- Right ECA: 0.0 LEFT: Peak Systolic Velocity (PSV) cm/sec ----- Left CCA: 65.6 ----- Left ICA: 87.6 ----- Left ECA: 70.8. ICA/CCA ratio: 1.3 LEFT: End Diastole cm/sec ----- Left CCA: 12.6 ----- Left ICA: 17.8 ----- Left ECA: 7.9 VERTEBRALS (direction of flow): Right Vertebral: Antegrade Left Vertebral: Antegrade Rhythm: Normal PILOT BOAT OPERATOR NOTES: Plaque seen in bilateral bulbs IMPRESSION: Mild atherosclerotic disease without significant stenosis.
[2024-01-27] MEDS: SYMBICORT 160-4.5 MCG INHALER INHALATION SCH (20:37)
[2024-01-27] MEDS ORDERED: ATORVASTATIN 20 MG TAB PO SCH (21:00)
[2024-01-27] MEDS: ATORVASTATIN 40 MG TAB PO SCH (21:19)
[2024-01-28 07:18] VITALS: RESP 16
[2024-01-28] MEDS: ASPIRIN 81 MG PO SCH (08:13)
--- NOTE | 2024-01-28 09:05 | P.PN ---
Subjective * 88-year-old patient with past medical history significant for hypertension, coronary artery disease, hyperlipidemia, mitral regurgitation, asthma presents to the emergency department with complaints of strokelike symptoms. Patient was sent in from cardiology office. Patient was assisted by daughter at bedside who assisted with history taking. Patient was sent in from cardiology office for evaluation of facial droop as well as slurred speech. At the time of presentation in ER patient was noted to have left-sided facial droop, family was at bedside who assisted with history taking. Patient had also been forgetful. Last well-known unknown. Workup initiated in ER included CT head which was negative for acute intracranial process and MRI brain recommended. * EKG obtained in ER showed sinus rhythm no significant ST segment changes. Pa jaison was not considered a candidate for TNK or thrombectomy given outside the window and low NIH score per ED team * Blood work obtained in ER include CBC which were essentially normal, PT/INR within normal limits, serum chemistry showed sodium of 133 potassium 3.9 BUN 28 creatinine 0.59 * Patient to be admitted to medical floor with consultation from neurology 01/28/2024 Patient is awake alert, she is oriented to time place person, she has insight into her illness and follows commands Her main problem is forgetfulness. Patient denies weakness on the left side and on her examination there is no weakness on the left side. Also no slurred speech or facial droop this morning when I examine her. She denies any other new complaints. She is hemodynamically stable Labs reviewed look stable as well She is continued on home dose of aspirin 81 mg MRI of the brain, echocardiogram and B12/folate are pending, possible discharge if workup came back negative for no significant Otherwise discharge in 24 to 48 hours Objective - Vital Signs Vital signs: Vital Signs Temp 97.6 F 01/27/24 18:35 Pulse 64 01/28/24 08:23 Resp 16 01/28/24 08:23 BP 146/66 01/28/24 08:12 Pulse Ox 97 01/28/24 08:12 FiO2 Intake & Output 01/27/24 01/28/24 01/28/24 18:59 06:59 18:59 Weight 55.338 kg - Exam GENERAL: The patient is alert and oriented x3, not in any acute distress. Well developed, well nourished. HEENT: Pupils are round and equally reacting to light. EOMI. No scleral icterus. No conjunctival pallor. Normocephalic, atraumatic. No pharyngeal erythema. No thyromegaly. CARDIOVASCULAR: S1 and S2 present. No murmurs, rubs, or gallops. PULMONARY: Chest is clear to auscultation, no wheezing , no crackles. ABDOMEN: Soft, nontender, nondistended, normoactive bowel sounds. No palpable organomegaly. MUSCULOSKELETAL: No joint swelling or deformity. EXTREMITIES: No cyanosis, clubbing, or pedal edema. NEUROLOGICAL: Gross neurological examination did not reveal any focal deficits. SKIN: No rashes. no petechiae. - Labs CBC & Chem 7: 01/27/24 11:29 01/27/24 11:39 Labs: Abnormal Lab Results - Last 24 Hours (Table) 01/27/24 Range/Units 11:39 Sodium 133 L (137-145) mmol/L Chloride 95 L (98-107) mmol/L Carbon Dioxide 32 H (22-30) mmol/L BUN 28 H (7-17) mg/dL Assessment and Plan Assessment: * Acute onset dysarthria with left-sided facial droop suspect CVA, present on admission, currently completely resolved * Forgetfulness, could be early Alzheimer's dementia versus secondary to above * Valvular heart disease with mitral regurgitation * Hyperlipidemia * History of coronary artery disease Plan: Continue with home dose of aspirin 4 mg Follow-up MRI of the brain, echocardiogram done for B12 and folate Neurology on the case DVT prophylaxis, subcutaneous heparin GI prophylaxis no need Continue symptomatic treatment Possible discharge in 24 to 48 hours once cleared by neurology service
--- NOTE | 2024-01-28 09:24 | P.CNNES ---
History of Present Illness Consult date: 01/27/24 Requesting physician: Valentin Whitten Reason for Consult: facial droop, ams History of Present Illness: Patient is a 88-year-old female with history of hypertension, CAD, who had a scheduled routine appointment at her prosthetic dentist office today earlier this morning. She follows up with Dr. Becerra. It was noted during the visit that patient had a droopy smile. Patient also had some altered mental status, forgetful going on for almost 1 week. She usually has a habit of checking her blood pressure twice a day, and she did not check it even once over 6 days, which is very unusual. She also has a notebook which has all birthdays written of her friends and family. The other day she was writing birthday on another piece of paper, completely forgetting that she does have a book of birthday reminders. She also forgot name of her doctor. She did not have any numbness or tingling or focal weakness or slurred speech or problem with the vision. Her prosthetic dentist recommended to go to the ER and she arrived at the ER today at 11:06 AM. Vital signs on arrival blood pressure 121/65, pulse rate 63 temperature 97.8. Blood test shows normal CBC, PT PTT, normal renal functions, TSH. Sodium [address] head revealed no acute process. Cerebral atrophy. Scattered hypoattenuating areas are seen within the white matter. I personally reviewed CT head agree with the findings. EKG shows sinus rhythm. Patient had a PRABHU in March 2023, which revealed moderate MR, trace AI, and EF of 55%. Her previous cardiac cath revealed 60 to 70% stenosis of the LAD. Patient has never smoked, denies any alcohol use. She does have hypertension but no diabetes. She does take aspirin 81 mg every day. Patient denies any previous history of strokes or TIA. States she has history of a single seizure about 30 years ago. Patient was treated with seizure medication for some time and then stopped taking it. She never had any recurrence of seizure. Review of Systems Completely unremarkable except as mentioned pertinent positives and negatives in the HPI. Patient does have arthritis. Constitutional: Denies chills, Denies fever Eyes: denies blurred vision, denies diplopia, denies pain, denies loss of peripheral vision, denies loss of vision Ears: deny: decreased hearing, ear discharge Ears, nose, mouth and throat: Denies headache, Denies sore throat, Denies vertigo Cardiovascular: Reports shortness of breath, Denies chest pain Respiratory: Denies cough, Denies excessive sputum Gastrointestinal: Denies abdominal pain, Denies diarrhea, Denies nausea, Denies vomiting Genitourinary: Reports nocturia, Denies flank pain, Denies urge incontinence Musculoskeletal: Reports myalgias, Denies low back pain Integumentary: Denies pruritus, Denies rash Neurological: Reports as per HPI Psychiatric: Denies anxiety, Denies depression Hematologic/Lymphatic: Denies easy bleeding, Denies easy bruising 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, hx diverticulitis History of Any Multi-Drug Resistant Organisms: MRSA Date of last positivie culture/infection: 2013 MDRO Source:: abdominal wound Past Surgical History: Bowel Resection, Hysterectomy Additional Past Surgical History / Comment(s): thyroidectomy Past Anesthesia/Blood Transfusion Reactions: No Reported Reaction Past Psychological History: No Psychological Hx Reported Past Alcohol Use History: None Reported Past Drug Use History: None Reported - Past Family History Mother Family Medical History: Cancer Additional Family Medical History / Comment(s): breast Sister(s) Family Medical History: Cancer Medications and Allergies Home Medications Medication Instructions Recorded Confirmed Type Carboxymethylcellulose Sodium 1 drop BOTH EYES QID PRN 03/17/20 01/27/24 History [Refresh Tears] Levothyroxine Sodium [Synthroid] 75 mcg PO HS 03/17/20 01/27/24 History Vitc/E/Zinc/Copper/Lutein/Zeax 1 tab PO BID-W/MEALS 03/17/20 01/27/24 History [Icaps Areds2 Tablet] Nitroglycerin Sl Tabs [Nitrostat] 0.4 mg SUBLINGUAL Q5M PRN #25 tab 03/21/20 01/27/24 Rx Albuterol Inhaler [Ventolin Hfa 2 puff INHALATION RT-Q6H PRN 04/08/23 01/27/24 History Inhaler] Aspirin [Adult Low Dose Aspirin EC] 81 mg PO W/BRKFST 07/07/23 01/27/24 History Cranberry Fruit Extract [Cranberry] 500 mg PO W/BRKFST 07/07/23 01/27/24 History Fexofenadine HCl [Stacy Allergy] 180 mg PO W/BRKFST 07/07/23 01/27/24 History Atenolol/Chlorthalidone 1 tab PO W/BRKFST 01/27/24 01/27/24 History [Atenolol-Chlorthalidone 100-25] Atorvastatin [Lipitor] 20 mg PO HS 01/27/24 01/27/24 History Calcium Carbonate [Calcium] 1,200 mg PO BID-W/MEALS 01/27/24 01/27/24 History Chlorthalidone [Hygroton] 25 mg PO W/BRKFST 01/27/24 01/27/24 History Fluticasone Propion/Salmeterol 2 puff INHALATION RT-BID 01/27/24 01/27/24 History [Advair Hfa 230-21 Mcg Inhaler] Mirabegron [Myrbetriq] 50 mg PO DAILY@1500 01/27/24 01/27/24 History Telmisartan 80 mg PO W/SUPPER 01/27/24 01/27/24 History cycloSPORINE 0.05% OPHTH SOLN 1 applicator BOTH EYES Q12H 01/27/24 01/27/24 History [Restasis] Allergies Allergy/AdvReac Type Severity Reaction Status Date / Time meloxicam [From Mobic] AdvReac increased Verified 01/27/24 13:05 b/p rofecoxib [From Vioxx] AdvReac increased Verified 01/27/24 13:05 b/p Sqtvcgt-XQK-UjW Reductase AdvReac muscle pain Verified 01/27/24 13:16 Inhibitor [Eicphqx-Pda-Waw Reductase Inhibitor] Physical Examination - Vital Signs Vital Signs: Vital Signs Temp Pulse Resp BP Pulse Ox 01/27/24 15:00 72 17 126/62 96 01/27/24 14:00 97.7 F 66 16 143/68 99 01/27/24 13:01 98.1 F 61 17 128/65 97 01/27/24 12:04 65 17 115/65 97 01/27/24 11:30 98.4 F 61 16 136/67 97 01/27/24 11:08 97.8 F 63 16 121/65 100 Intake and Output 01/27/24 01/27/24 01/27/24 06:59 14:59 22:59 Other: Weight 55.338 kg Patient is an elderly female, very pleasant, in no acute distress. Patient is alert awake oriented to time place and person. Speech and language functions are normal. Patient can name and repeat very well. No aphasia or dysarthria. Attention, concentration and fund of knowledge is adequate. On cranial nerve examination, pupils are equal, round and reacting to light, visual ahumada are full on confrontation, with no neglect on double simultaneous stimulation. Extraocular muscles are intact with no nystagmus. Patient has very questionable left facial asymmetry. Her tongue protrudes to the midline. Palatal elevation and sensation normal, hearing and shoulder shrug normal, facial sensation normal. On muscle strength testing, there is no pronator drift and the strength is normal in arms and legs distally and proximally, except right deltoid which is 5-and has some arthritic issue. Deep tendon reflexes are symmetric biceps 1, brachioradialis 1, knees 2, ankles 1 and plantars downgoing bilaterally. Sensory to touch is equal with no neglect on double simultaneous stimulation. Cerebellar function showed no ataxia for iwuaci-ss-vuas testing. No dysdiadochokinesia. No ataxia for wvyq-im-tage testing on either side. Tone a nd bulk of muscles normal. Gait deferred.. On general examination, there is no carotid bruit or murmur, S1-S2 audible. Chest is clear on consultation. Abdomen is soft nontender. No organomegaly, bowel sounds present. Peripheral pulses are present. No peripheral edema. Results - Laboratory Findings CBC and BMP: 01/27/24 11:29 01/27/24 11:39 Abnormal Lab Findings: Abnormal Labs 01/27/24 11:39 Sodium 133 L Chloride 95 L Carbon Dioxide 32 H BUN 28 H Assessment and Plan Assessment: * 88-year-old female presented with 1 week history of some forgetfulness, and questionable left facial asymmetry. Her examination is normal except for very questionable left facial asymmetry. * Hypertension * Hyperlipidemia * Hyponatremia * CAD Plan: * Carotid Doppler rule out carotid stenosis * 2D echo, evaluate for any embolic source * Fasting lipid panel, hemoglobin A1c * Optimize control of blood pressure. * Patient has received aspirin 324 mg in the ER. She does take aspirin 81 mg daily, which will be continued. * Continue Lipitor 40 mg daily. * For memory loss, we will check B12, folate. * DVT prophylaxis: Heparin 5000 units subcu every 12 hour. * Neurology will follow. Thank you for the consult.
--- NOTE | 2024-01-28 11:58 | CA ---
Transthoracic Echo Report Name: Vee Forbes Age: 88 Gender: F : 1935 Exam Date: 01/28/2024 08:37 Exam Location: [facility] Ht (in): 64 Wt (lb): 122 Ordering Physician: Momo Martinez MD Attending/Referring Phys: Pin Setter Gaye Strauss RDCS Procedure CPT: Indications: Thrombus Cardiac Hx: Technical Quality: Fair Contrast 1: Total Dose (mL): Contrast 2: Total Dose (mL): MEASUREMENTS (Male / Female) Normal Values 2D ECHO LV Diastolic Diameter PLAX 5.2 cm 4.2 - 5.9 / 3.9 - 5.3 cm LV Systolic Diameter PLAX 3.0 cm IVS Diastolic Thickness 1.1 cm 0.6 - 1.0 / 0.6 - 0.9 cm LVPW Diastolic Thickness 1.1 cm 0.6 - 1.0 / 0.6 - 0.9 cm LV Relative Wall Thickness 0.4 RV Internal Dim ED PLAX 2.3 cm LVOT Diameter 1.7 cm LA Systolic Diameter LX 4.5 cm 3.0 - 4.0 / 2.7 - 3.8 cm LV Diastolic Volume MOD BP 55.0 cm??? 67 - 155 / 56 - 104 cm??? LV Systolic Volume MOD BP 19.8 cm??? 22 - 58 / 19 - 49 cm??? LV Ejection Fraction MOD BP 64.1 % >= 55 % LV Cardiac Index MOD BP 1383.5 cm???/min???m??? LV Diastolic Volume MOD 4C 66.3 cm??? LV Systolic Volume MOD 4C 23.1 cm??? LV Ejection Fraction MOD 4C 65.2 % LV Cardiac Index MOD 4C 1697.4 cm???/min???m??? LV Diastolic Length 4C 6.7 cm LV Systolic Length 4C 5.2 cm LV Diastolic Volume MOD 2C 46.7 cm??? LV Systolic Volume MOD 2C 16.0 cm??? LV Ejection Fraction MOD 2C 65.8 % LV Cardiac Index MOD 2C 1206.1 cm???/min???m??? LV Diastolic Length 2C 6.7 cm LV Systolic Length 2C 5.5 cm LA Volume 42.1 cm??? 18 - 58 / 22 - 52 cm??? LA Volume Index 26.7 cm???/m??? 16 - 28 cm???/m??? M-MODE Aortic Root Diameter MM 2.9 cm LA Systolic Diameter MM 3.9 cm LA Ao Ratio MM 1.3 AV Cusp Separation MM 1.5 cm DOPPLER AV Peak Velocity 128.5 cm/s AV Peak Gradient 6.6 mmHg AV Mean Velocity 87.8 cm/s AV Mean Gradient 3.4 mmHg AV Velocity Time Integral 36.4 cm AI Peak Velocity 291.7 cm/s AI Peak Gradient 34.0 mmHg AI Pressure Half Time 921.9 ms MV Area PHT 3.2 cm??? Mitral E Point Velocity 104.7 cm/s Mitral A Point Velocity 103.1 cm/s Mitral E to A Ratio 1.0 MV Deceleration Time 236.7 ms TR Peak Velocity 277.5 cm/s TR Peak Gradient 30.8 mmHg Right Ventricular Systolic Press 35.3 mmHg FINDINGS Left Ventricle Left ventricular ejection fraction is estimated at 55-60%. Mildly increased septal wall thickness. Mildly increased posterior wall thickness. Normal left ventricular systolic function with no obvious regional wall motion abnormalities. Right Ventricle Normal right ventricular size and function. Mild pulmonary hypertension. Right Atrium Moderate right atrial dilatation. Left Atrium Moderately increased left atrial diameter. Mitral Valve Mitral valve thickened. Mitral annular calcification. Moderate mitral regurgitation. Aortic Valve Trileaflet aortic valve. Mild aortic regurgitation. Diffuse thickening (sclerosis) of the aortic valve cusps without reduced excursion. Tricuspid Valve Structurally normal tricuspid valve. Mild tricuspid regurgitation. Pulmonic Valve Structurally normal pulmonic valve. Trace pulmonic regurgitation. No pulmonic stenosis. Pericardium No pericardial or pleural effusion. Aorta Normal size aortic root and proximal ascending aorta. CONCLUSIONS Normal LV systolic function Moderate mitral regurgitation Aortic sclerosis with mild aortic regurgitation Previewed by: Dr. Hilario Walls MD (Electronically Signed) Final Date: 28 Jan 2024 11:58
[2024-01-28 12:02] LABS: LDL Cholesterol,Calculated 48.2 mg/dL (0.0-131.0); VLDL Calculation 10.58 mg/dL (5.00-40.00)
[2024-01-28 13:56] LABS: Appearance,Urine Clear (Clear); Bilirubin,Urine Negative (Negative); Blood,Urine Negative (Negative); Color,Urine Colorless; Glucose,Urine (UA) 1+ (Negative); Ketones,Urine Negative (Negative); Leukocyte Esterase,Urine Negative (Negative); Nitrite,Urine Negative (Negative); Protein,Urine Negative (Negative); Specific Gravity,Urine 1.011 (1.001-1.035); Urobilinogen,Urine <2.0 mg/dL (<2.0)
--- NOTE | 2024-01-28 18:15 | MR ---
EXAMINATION TYPE: MR brain wo con DATE OF EXAM: 01/28/2024 6:11 PM CLINICAL INDICATION:Female, 88 years old with history of Neuro deficit, acute, stroke suspected; PHH, Neuro deficit, acute, stroke suspected COMPARISON: 01/27/2024. TECHNIQUE: Multi planar, multi sequence imaging was performed through the brain including: T1, T2, In version recovery, Diffusion weighted imaging, and gradient echo imaging. No gadolinium was given. FINDINGS: Mild cerebral atrophy with proportional dilation of ventricular system. Scattered foci of high T2 s ignal intensity are seen within the periventricular white matter. Midline structures show no abnormal ity. Diffusion-weighted imaging shows no evidence of restricted diffusion. The susceptibility weighte d images do not reveal any evidence for micro-hemorrhage. The bone marrow signal is within normal limits. Paranasal sinuses and mastoid air cells: No significant paranasal sinus disease. Visualized orbits: Bilaterally aphakia. IMPRESSION: 1. No evidence of intracranial mass or acute/subacute infarct. 2. Nonspecific white matter changes, likely secondary to small vessel ischemic disease.
[2024-01-28] MEDS: HEPARIN SODIUM,PORCINE 5,000 UNIT/ML 1 ML VIAL SQ SCH (20:37)
[2024-01-29 07:51] VITALS: TEMP 97.9
[2024-01-29] MEDS: ACETAMINOPHEN TAB 325 MG TAB PO PRN (10:01)
--- NOTE | 2024-01-29 10:52 | P.PN ---
Subjective Progress Note Date: 01/28/24 Patient was seen for a follow-up. Patient is doing fine. All symptoms resolved. No new concerns. Objective - Vital Signs Vital signs: Vital Signs Temp 97.8 F 01/28/24 13:38 Pulse 69 01/28/24 15:10 Resp 16 01/28/24 15:10 BP 122/68 01/28/24 15:10 Pulse Ox 98 01/28/24 15:10 FiO2 Intake & Output 01/27/24 01/28/24 01/28/24 18:59 06:59 18:59 Intake Total 110 Output Total 200 Balance -90 Weight 55.338 kg 55.338 kg Intake: Oral 110 Output: Urine 200 Other: # Voids 1 - Exam Examination normal. Face is symmetric. - Labs CBC & Chem 7: 01/27/24 11:29 01/27/24 11:39 Labs: Abnormal Lab Results - Last 24 Hours (Table) 01/28/24 01/28/24 Range/Units 07:22 13:36 Hemoglobin A1c 6.1 H (<=6.0) % Urine Glucose (UA) 1+ H (Negative) Assessment and Plan Assessment: * 88-year-old female presented with 1 week history of some forgetfulness, and questionable left facial asymmetry. Her examination is normal except for very questionable left facial asymmetry. * Hypertension * Hyperlipidemia * Hyponatremia * CAD Plan: * Carotid Doppler revealed mild atherosclerotic disease without significant stenosis. Antegrade flow in both vertebral arteries. * 2D echo, revealed normal left ventricular systolic function with LVEF 55 to 60%. Mildly increased septal wall thickness and posterior wall thickness. No regional wall motion abnormalities. Moderately increased left atrial diameter. Moderate MR. Aortic sclerosis with mild aortic regurgitation. * MRI of the brain initiated by primary team revealed no evidence of intracranial mass or subacute or acute infarct. Nonspecific white matter changes, likely secondary to small vessel ischemic disease. * Fasting lipid panel cholesterol 108, LDL 48, HDL 49 and triglycerides 52. Continue Lipitor 20 mg daily. * Hemoglobin A1c 6.1. * Optimize control of blood pressure. * Patient has received aspirin 324 mg in the ER. She does take aspirin 81 mg daily, which will be continued. * Telemetry monitoring showing sinus rhythm. * For memory loss, we checked B12 533, folate pending. * DVT prophylaxis: Heparin 5000 units subcu every 12 hour. * Neurologically clear for discharge.
[2024-01-29] MEDS: DICLOFENAC SODIUM GEL 50 GM TUBE TOPICAL PRN (11:32)
[2024-01-29 12:24] VITALS: BP 106/65; PULSE 73
--- NOTE | 2024-01-30 06:10 | P.DS ---
Providers Date of admission: 01/27/24 13:08 Attending physician: Sury Aparicio Consults: 01/27/24 13:07 Consult Physician Routine Consulting Provider: Artemio Valdez Consult Reason/Comments: facial droop, ams Do you want consulting provider notified?: Yes Primary care physician: Janna Lopez Hospital Course: diagnoses: Acute onset dysarthria with left-sided facial droop suspect CVA versus TIA, present on admission, currently completely resolved Forgetfulness, could be early Alzheimer's dementia versus secondary to medication effect. Improved Valvular heart disease with mitral regurgitation Hyperlipidemia History of coronary artery disease Hospital course: 88-year-old patient with past medical history significant for hypertension, coronary artery disease, hyperlipidemia, mitral regurgitation, asthma presents to the emergency department with complaints of strokelike symptoms. Patient was sent in from cardiology office. Patient was sent in from cardiology office for evaluation of facial droop as well as slurred speech. CT head which was negative for acute intracranial process and MRI brain recommended.MRI of the brain also was obtained showing no evidence of intracran ial mass or acute/subacute infarct. Patient's symptoms improved and more than 48 hours patient was awake and alert, talking freely and normally. No weakness or numbness. Mentation at baseline. No other new complaints. Patient agrees to go home today Patient was cleared for discharge by neurologist Further workup was unremarkable Patient will be discharged on her home dose of aspirin 81 mg, patient comfortable to me she has medication at home. Blood pressure medication was adjusted upon discharge Problems and management plan were discussed with the patient and he verbalized understanding and acceptance Patient was found stable and can be discharged home in guarded prognosis however he needs follow-up as an outpatient. Patient was instructed to follow up with PCP Dr. Lopez within one week and patient agrees Patient was instructed to follow-up with a neurologist Dr. Greene in 2 weeks after discharge and she agrees Physical exam Gen: patient is a AAOx3, no distress CVS: S1-S2, RRR, no murmur Lungs: B/L CTA, no wheezing Abdomen: soft, no distention, no tenderness, positive bowel sounds Extremity: no leg edema or induration Time spent more than 35 minutes Patient Condition at Discharge: Fair Plan - Discharge Summary Discharge Rx Participant: No New Discharge Prescriptions: New Atorvastatin [Lipitor] 40 mg PO HS #30 tab Diclofenac Sodium Gel [Voltaren 1% Gel] 2 gm TOPICAL QID PRN #1 each PRN Reason: Pain atenoloL [Tenormin] 25 mg PO DAILY #30 tab Acetaminophen Tab [Tylenol] 325 mg PO Q6HR PRN #30 tab PRN Reason: Fever And/ Or Pain Continue Levothyroxine Sodium [Synthroid] 75 mcg PO HS Vitc/E/Zinc/Copper/Lutein/Zeax [Icaps Areds2 Tablet] 1 tab PO BID-W/MEALS Carboxymethylcellulose Sodium [Refresh Tears] 1 drop BOTH EYES QID PRN PRN Reason: DRY EYES Nitroglycerin Sl Tabs [Nitrostat] 0.4 mg SUBLINGUAL Q5M PRN #25 tab PRN Reason: Chest Pain Albuterol Inhaler [Ventolin Hfa Inhaler] 2 puff INHALATION RT-Q6H PRN PRN Reason: Shortness Of Breath Fexofenadine HCl [Stacy Allergy] 180 mg PO W/BRKFST Mirabegron [Myrbetriq] 50 mg PO DAILY@1500 Telmisartan 80 mg PO W/SUPPER Cranberry Fruit Extract [Cranberry] 500 mg PO W/BRKFST Aspirin [Adult Low Dose Aspirin EC] 81 mg PO W/BRKFST Calcium Carbonate [Calcium] 1,200 mg PO BID-W/MEALS Fluticasone Propion/Salmeterol [Advair Hfa 230-21 Mcg Inhaler] 2 puff INHALATION RT-BID cycloSPORINE 0.05% OPHTH SOLN [Restasis] 1 applicator BOTH EYES Q12H Discontinued Atenolol/Chlorthalidone [Atenolol-Chlorthalidone 100-25] 1 tab PO W/BRKFST Atorvastatin [Lipitor] 20 mg PO HS Chlorthalidone [Hygroton] 25 mg PO W/BRKFST Discharge Medication List Carboxymethylcellulose Sodium [Refresh Tears] 1 drop BOTH EYES QID PRN 03/17/20 [History] Levothyroxine Sodium [Synthroid] 75 mcg PO HS 03/17/20 [History] Vitc/E/Zinc/Copper/Lutein/Zeax [Icaps Areds2 Tablet] 1 tab PO BID-W/MEALS 03/17/20 [History] Nitroglycerin Sl Tabs [Nitrostat] 0.4 mg SUBLINGUAL Q5M PRN #25 tab 03/21/20 [Rx] Albuterol Inhaler [Ventolin Hfa Inhaler] 2 puff INHALATION RT-Q6H PRN 04/08/23 [History] Aspirin [Adult Low Dose Aspirin EC] 81 mg PO W/BRKFST 07/07/23 [History] Cranberry Fruit Extract [Cranberry] 500 mg PO W/BRKFST 07/07/23 [History] Fexofenadine HCl [Stacy Allergy] 180 mg PO W/BRKFST 07/07/23 [History] Calcium Carbonate [Calcium] 1,200 mg PO BID-W/MEALS 01/27/24 [History] Fluticasone Propion/Salmeterol [Advair Hfa 230-21 Mcg Inhaler] 2 puff INHALATION RT-BID 01/27/24 [History] Mirabegron [Myrbetriq] 50 mg PO DAILY@1500 01/27/24 [History] Telmisartan 80 mg PO W/SUPPER 01/27/24 [History] cycloSPORINE 0.05% OPHTH SOLN [Restasis] 1 applicator BOTH EYES Q12H 01/27/24 [History] Acetaminophen Tab [Tylenol] 325 mg PO Q6HR PRN #30 tab 01/29/24 [Rx] Atorvastatin [Lipitor] 40 mg PO HS #30 tab 01/29/24 [Rx] Diclofenac Sodium Gel [Voltaren 1% Gel] 2 gm TOPICAL QID PRN #1 each 01/29/24 [Rx] atenoloL [Tenormin] 25 mg PO DAILY #30 tab 01/29/24 [Rx] Follow up Appointment(s)/Referral(s): [facility] [NON-STAFF] - As Needed Marcus Malone MD [REFERRING] - 2 Weeks (Neurologist (Office will call you directly to schedule an appointment). ) Janna Lopez DO [Primary Care Provider] - 01/31/24 10:40 am Patient Instructions/Handouts: Stroke (DC) Activity/Diet/Wound Care/Special Instructions: Heart healthy diet Activity is restricted till you see your doctor Discharge Disposition: HOME WITH HOME HEALTH SERVICES
== END 2024-01-29 14:16 | disposition home health service (06) | DRG 92 ==
LOC: EC 11:06 → 1SOBS 13:08 → 3SCARD 15:27
PROVIDERS: ADMIT Hospitalist; ATTEND Hospitalist
DX: R29.810 Facial weakness (principal); E87.1 Hypo-osmolality and hyponatremia; R47.01 Aphasia; E78.5 Hyperlipidemia, unspecified; I10 Essential (primary) hypertension; I08.0 Rheumatic disorders of both mitral and aortic valves; I25.10 Atherosclerotic heart disease of native coronary artery without angina pectoris; R47.1 Dysarthria and anarthria; M19.90 Unspecified osteoarthritis, unspecified site; Z79.890 Hormone replacement therapy; Z66 Do not resuscitate; Z79.82 Long term (current) use of aspirin; Z59.6 Low income; Z79.899 Other long term (current) drug therapy; Z90.710 Acquired absence of both cervix and uterus; Z87.19 Personal history of other diseases of the digestive system; Z88.8 Allergy status to other drugs, medicaments and biological substances
CPT/HCPCS: 36415; 70450; 70551; 80048; 80061; 81003; 82607; 82746; 83036; 84443; 85025; 85610; 85730; 93005; 93306; 93880; 94640; 99285

== ENCOUNTER → 2024-06-02 | Outpatient (CLI) | payer MEDICARE, OTHER ==
--- NOTE | 2024-06-06 11:18 | MM ---
Reason for Exam: Screening (asymptomatic). Last mammogram was performed 1 year(s) and 1 month(s) ago. Patient History: Menarche at age 11. First Full-Term at age 19. Left ovary removed at age 53. Right ovary removed at age 53. Hysterectomy at age 53. Postmenopausal. Maternal cousin had breast cancer, age 55. Maternal cousin had breast cancer, age 80. Paternal aunt had breast cancer, age 80. Paternal aunt had breast cancer, age 70. Sister had breast cancer, age 66. Mother had breast cancer, age 85. Prior Study Comparison: 05/17/2022 Bilateral MG 3D screening mammo w/cad, [facility]. 11/21/2022 Right MG 3D diag mammo w/cad RT, [facility]. 05/27/2023 Bilateral MG 3D diag mammo w/cad FERNIE, [facility]. Tissue Density: There are scattered areas of fibroglandular density. Findings: Analyzed By CAD. Right breast: There is no suspicious group of microcalcifications or new suspicious mass. Left breast: There is no suspicious group of microcalcifications or new suspicious mass. Overall Assessment: Negative, BI-RAD 1 Management: Screening Mammogram of both breasts in [address] [facility] will attempt to contact patient to return for supplemental views and ultrasound if indicated. Patient should continue monthly self-breast exams. A clinical breast exam by your physician is recommended on an annual basis. This exam should not preclude additional follow-up of suspicious palpable abnormalities. Note on Jenniffer scores and lifetime risk: 1. A Jenniffer score greater than 3% is considered moderate risk. If this is the case, consider specialist referral to assess eligibility for a risk reducing agent. 2. If overall lifetime risk for the development of breast cancer is 20% or higher, the patient may qualify for future screening with alternating mammogram and breast MRI. Electronically signed and approved by: Rich Calderon DO
== END | disposition home or self-care (01) ==
LOC: RADMAMWWP 10:46
PROVIDERS: ATTEND Family Medicine
DX: Z12.31 Encounter for screening mammogram for malignant neoplasm of breast
CPT/HCPCS: 77063; 77067